=== PATIENT | male | born 1940 | race Caucasian/White ===

== ENCOUNTER 2017-12-18 12:21 | Outpatient (RCR) | payer MEDICARE | END 2018-01-06 | disposition home or self-care (01) | LOC: ONC 12:21 | PROVIDERS: ATTEND Radiology Radiation Oncology | DX: C61 Malignant neoplasm of prostate (principal) | CPT/HCPCS: 99204 ==

== ENCOUNTER 2018-03-29 09:45 | Outpatient (RCR) | payer MEDICARE | END 2018-04-15 | disposition home or self-care (01) | LOC: ONC 09:45 | PROVIDERS: ATTEND Radiology Radiation Oncology | DX: Z51.0 Encounter for antineoplastic radiation therapy (principal); C61 Malignant neoplasm of prostate | CPT/HCPCS: 77300; 77301; 77334; 77336; 77338; 77385; 77386 ==

== ENCOUNTER 2018-05-08 10:14 | Outpatient (RCR) | payer MEDICARE | END 2018-08-06 | disposition home or self-care (01) | LOC: ONC 10:14 | PROVIDERS: ATTEND Radiology Radiation Oncology | DX: C61 Malignant neoplasm of prostate (principal) | CPT/HCPCS: 36415; 84153 ==

== ENCOUNTER 2018-08-07 14:14 | Outpatient (RCR) | payer MEDICARE ==
[2018-09-03] MEDS ORDERED: LISI10TA2 PO (13:37)
[2018-09-03] MEDS ORDERED: NIAC1CAP PO (13:37)
[2018-09-03] MEDS ORDERED: ASPI-586 PO (13:37)
[2018-09-03] MEDS ORDERED: OMG1KC PO (13:37)
[2018-09-03] MEDS ORDERED: ALLO100T PO (13:37)
[2018-09-03] MEDS ORDERED: MULT-974 PO (13:37)
[2018-09-03] MEDS ORDERED: ACET-93 PO (13:37)
[2018-09-03] MEDS ORDERED: METO-370 PO (13:37)
[2018-09-03] MEDS ORDERED: VITA400C58 PO (13:37)
[2018-10-21] MEDS ORDERED: VITA100T6 PO (14:01)
[2018-10-21] MEDS ORDERED: FERR-84 PO (14:01)
[2018-10-21] MEDS ORDERED: NITR0.4T39 SL (14:01)
[2018-10-21] MEDS ORDERED: OMG1KC PO (14:01)
[2018-10-21] MEDS ORDERED: ASPI-586 PO (14:01)
[2018-10-21] MEDS ORDERED: IPRA4AER IH (14:01)
[2018-10-21] MEDS ORDERED: LISI-556 PO (14:02)
[2018-10-27] MEDS ORDERED: ACHD5005 PO (12:41)
== END 2018-11-05 | disposition home or self-care (01) ==
LOC: ONC 14:14
PROVIDERS: ATTEND Radiology Radiation Oncology
DX: C61 Malignant neoplasm of prostate (principal)
CPT/HCPCS: 99213

== ENCOUNTER 2018-09-03 06:25 | Outpatient (CLI) | payer MEDICARE ==
[~2018-09-03] VITALS: Ht 167.6 cm; Wt 120.2 kg
[2018-09-03] MEDS ORDERED: ASPI-586 PO (13:37)
[2018-09-03] MEDS ORDERED: ALLO100T PO (13:37)
[2018-09-03] MEDS ORDERED: MULT-974 PO (13:37)
[2018-09-03] MEDS ORDERED: OMG1KC PO (13:37)
[2018-09-03] MEDS ORDERED: ACET-93 PO (13:37)
[2018-09-03] MEDS ORDERED: LISI10TA2 PO (13:37)
[2018-09-03] MEDS ORDERED: VITA400C58 PO (13:37)
[2018-09-03] MEDS ORDERED: METO-370 PO (13:37)
[2018-09-03] MEDS ORDERED: NIAC1CAP PO (13:37)
== END 2018-09-03 13:45 | disposition home or self-care (01) ==
LOC: PREOP 06:25
PROVIDERS: ATTEND Surgery
DX: Z01.818 Encounter for other preprocedural examination (principal)

== ENCOUNTER 2018-09-09 09:47 | Day surgery (SDC) | payer MEDICARE ==
[~2018-09-09] VITALS: Ht 167.6 cm; Wt 120.2 kg
[~2018-09-09 09:47] MED LIST: ACET-93 PO; ALLO100T PO; ASPI-586 PO; LISI10TA2 PO; METO-370 PO; MULT-974 PO; NIAC1CAP PO; OMG1KC PO; VITA400C58 PO
[2018-09-09] MEDS ORDERED: LACTATED RINGERS 1,000 ML IV ONE (10:03)
[2018-09-09] MEDS ORDERED: LACTATED RINGERS 1,000 ML IV STA (10:32)
[2018-09-09 10:34] VITALS: BP 145/84
[2018-09-09] MEDS ORDERED: HURRICAINE EXT TUBE (BENZOCAINE) XX PRN (10:45)
[2018-09-09] MEDS ORDERED: HURRICAINE EXT TUBE (BENZOCAINE) ONE (10:46)
[2018-09-09] MEDS ORDERED: PROPOFOL INJECTION 50 ML IV ONE ×2 (11:20→12:16)
[2018-09-09] MEDS ORDERED: LIDOCAINE PF 2% 5 ML (XYLOCAINE) VIAL ONE (11:20)
[2018-09-09] MEDS ORDERED: MIDAZOLAM 2 MG/2 ML (VERSED) VIAL ONE (11:20)
--- NOTE | 2018-09-09 11:33 | Progress Note-Pre Operative ---
Pre-Operative Progress Note H&P Reviewed The H&P was reviewed, patient examined and no changes noted. Time Seen by Provider: 11:28 Date H&P Reviewed: Sep 09, 2018 Time H&P Reviewed: 11:29 Pre-Operative Diagnosis: Anemia LYUDMILA BRUSH DO Sep 09, 2018 11:33
--- NOTE | 2018-09-09 12:37 | Progress Note-Post Operative ---
Post-Operative Progess Note Surgeon (s)/Assembler Aircraft Power Plant (s) Surgeon LYUDMILA BRUSH DO Assembler Aircraft Power Plant: none Pre-Operative Diagnosis Anemia Post-Operative Diagnosis Same plus.. Duodenal ulcers Ascending colon mass Diverticula Internal hemorrhoids Procedure & Operative Findings Date of Procedure 09/09/18 Procedure Performed/Findings EGD with bx Colon with hot bx Colon with injection tattoo Anesthesia Type IV sedation by CROCHET BEADER Estimated Blood Loss Estimated blood loss (mL): scant Specimens/Packing Specimens Removed duodenal bx GE jxn bx Asc colon bx LYUDMILA BRUSH DO Sep 09, 2018 12:37
--- NOTE | 2018-09-09 12:39 | Endoscopy Discharge Instruct ---
Endo Procedure/Findings Findings 1.: Duodenal Ulcer 2.: Hiatal Hernia 3.: Polyp 4.: Diverticulosis, Internal Hemorrhoids Discharge Instructions - Activity: You might feel a little sleepy until tomorrow. This is due to the m edicine you received to relax you. Until tomorrow, you should: NOT drive a car, operate machinery or power tools. NOT drink any alcoholic beverages. NOT make any important decisions or sign importortant papers. Do not return to work until tomorrow, unless otherwise instructed. Resume previous activities tomorrow. Diet: Start by taking liquids. If you tolerate liquids, advance to solid food. make an appointment for one week Notify Physician - If you experience excessive bleeding, unusual abdominal pain, fever, or chest pain, contact your doctor immediately. Follow-Up: - I have received and understand the above instructions and will call my doctor if I have any further questions. Patient Signature Date Nurse Signature Other (Relationship) LYUDMILA BRUSH DO Sep 09, 2018 12:39
[2018-09-09 12:45] VITALS: BP 114/58
[2018-09-09 13:15] VITALS: BP 142/83
[2018-09-09 13:17] VITALS: BP 142/83
[2018-09-09 13:25] VITALS: BP 142/83
--- NOTE | 2018-09-09 14:37 | Anesthesia-General Post-Op ---
MAC Patient Condition Mental Status/LOC: Same as Preop Cardiovascular: Satisfactory Nausea/Vomiting: Absent Respiratory: Satisfactory Pain: Controlled Complications: Absent Post Op Complications Complications None Follow Up Care/Instructions Patient Instructions None needed. Anesthesiology Discharge Order Discharge Order Patient is doing well, no complaints, stable vital signs, no apparent adverse anesthesia problems. No complications reported per nursing. AARON MENESES CRNA Sep 09, 2018 14:37
--- NOTE | 2018-09-10 03:28 | OPERATIVE REPORT ---
DATE OF SERVICE: 09/09/2018 PREOPERATIVE DIAGNOSES: Anemia. POSTOPERATIVE DIAGNOSES: 1. Duodenal ulcer. 2. Hiatal hernia. 3. Esophagitis. 4. Ascending colon mass. 5. Diverticula. 6. Internal hemorrhoids. 7. He had AVMs in his colon. PROCEDURE: 1. EGD with biopsy. 2. Colonoscopy with hot biopsy. 3. Injection of dye for marking. SPECIMEN: Biopsy from the duodenum as well as a biopsy GE junction and then biopsy of ascending colon mass. INDICATION FOR PROCEDURE: The patient is a 78-year-old male who has anemia and needed a workup, EGD and colonoscopy. FINDINGS: The patient had a duodenal ulcer, hiatal hernia, esophagitis, ascending colon mass, diverticula, AVMs and internal hemorrhoids. PROCEDURE NOTE: After informed consent was obtained, the patient was brought to the endoscopy suite, placed in the bed in left lateral decubitus position. He was administered IV sedation by the BUSINESS INTELLIGENCE ANALYST who then monitored his vitals the entire time, heart rate, blood pressure and pulse ox and the scope was inserted first starting in the upper scope and pushed through the mouth, down the esophagus and into the stomach and then into the duodenum. In the duodenum, looked like he had some ulcers, took a picture of this and then a biopsy. that was in the first portion of duodenum. The second portion looked normal. Pulled back, antrum looked okay. Retroflexed the scope, looked like a small hiatal hernia and then pulled up into the GE junction, looked like he had may be some changes and took a biopsy here as well. Rest of the esophagus looked okay. Switched scopes, switched gloves, went down below to start the colonoscopy, pushed in, noted some diverticula, small and then large and some AVMs. He had multiple AVMs, then kept pushing pass and into the ascending colon saw unfortunately large ulcerating mass, did hot biopsies of this, could see the cecum just past this. I elected also to place some dye around it subcutaneously to [place] this area. At this point, then I pulled the scope back up the ascending colon to the hepatic flexure, then down the transverse colon, splenic flexure, into the descending colon following down the sigmoid and then in the rectum, retroflexed the rectal vault for some very minimal internal hemorrhoids. Scope was removed. The patient was recovered in the endoscopy suite. Job ID: [id number] DocumentID: [id number] Dictated Date: 09/09/2018 16:21:08 Mainframe Systems Administrator Date: 09/10/2018 03:26:57 Dictated By: LYUDMILA BRUSH DO
== END 2018-09-09 13:27 | disposition home or self-care (01) ==
LOC: ENDO 09:47
PROVIDERS: ATTEND Surgery
DX: C18.2 Malignant neoplasm of ascending colon (principal); K57.30 Diverticulosis of large intestine without perforation or abscess without bleeding; K55.20 Angiodysplasia of colon without hemorrhage; K29.80 Duodenitis without bleeding; K26.9 Duodenal ulcer, unspecified as acute or chronic, without hemorrhage or perforation; K29.50 Unspecified chronic gastritis without bleeding; K44.9 Diaphragmatic hernia without obstruction or gangrene; K20.9 Esophagitis, unspecified; K64.8 Other hemorrhoids; D64.9 Anemia, unspecified; I10 Essential (primary) hypertension; I25.10 Atherosclerotic heart disease of native coronary artery without angina pectoris; J44.9 Chronic obstructive pulmonary disease, unspecified; Z87.891 Personal history of nicotine dependence; Z95.1 Presence of aortocoronary bypass graft; Z95.5 Presence of coronary angioplasty implant and graft; Z79.82 Long term (current) use of aspirin; Z79.899 Other long term (current) drug therapy

== ENCOUNTER → 2018-09-19 | Outpatient (CLI) | payer MEDICARE ==
[2018-09-19 16:22] LABS: ABG BASE EXCESS 0.5 MMOL/L (-2.5-2.5); ABG OXYGEN SATURATION 95 % (94-100); ABG PCO2 38 MMHG (35-45); ABG PH 7.42 (7.37-7.43); ABG PO2 65 MMHG (79-93)
[2018-09-19 16:23] LABS: ALLENS TEST YES-POS; INSPIRED O2 RA; PATIENT TEMP 96.2; VENTILATOR NO
== END ==
LOC: PULM 15:10
PROVIDERS: ATTEND Nurse Practitioner Family
DX: J30.9 Allergic rhinitis, unspecified (principal); R05 Cough; R06.00 Dyspnea, unspecified; R06.89 Other abnormalities of breathing; R06.83 Snoring; G47.10 Hypersomnia, unspecified; C18.9 Malignant neoplasm of colon, unspecified
CPT/HCPCS: 36600; 82805

== ENCOUNTER → 2018-09-19 | Outpatient (CLI) | payer MEDICARE ==
[~2018-09-19] MED LIST changes: +CATHETER FLUSH 10 ML SYR IV PRN; +HOLD METFORMIN - RECEIVED CONTRAST 20 ML VIAL IV SCH; +IOHEXOL 350 MG/ML 100 ML (OMNIPAQUE 350) VIAL IV ONE; +NS 100 ML (IVPB) BAG IV ONE
[2018-09-19 12:21] LABS: BUN/CREATININE RATIO 13; CREATININE SERUM 1.16 MG/DL (0.60-1.30); GFR ESTIMATED > 60
--- NOTE | 2018-09-19 18:00 | Diagnostic Imaging Report ---
PROCEDURE: CT chest with contrast only. TECHNIQUE: Multiple contiguous axial images were obtained through the chest after administration of intravenous contrast. Auto Exposure Controls were utilized during the CT exam to meet ALARA standards for radiation dose reduction. INDICATION: COPD, colon carcinoma, prostate carcinoma. COMPARISON: There are no prior studies available for comparison. FINDINGS: The heart is borderline enlarged, and there are sternotomy wires and surgical clips evident. There are also coronary artery calcifications. The aorta is not abnormally dilated, and there is no sign of a dissection. The pulmonary arteries were not fully opacified, and consequently the evaluation for a pulmonary embolus is limited. There is no definite defect within the pulmonary arteries to indicate a pulmonary embolus. There are chronic pulmonary changes evident, but there is no sign of failure, pneumonia, or of a pleural effusion to indicate an acute abnormality. There is a small 5.4 mm nodule in the right lung base (image 32/69). There is a similar-sized nodule along the periphery of the left lower lobe (image 34/69). I suspect that these nodules are benign. Even so, unless there are previous studies available to demonstrate that these findings are stable, then a six-month follow-up CT chest exam would be recommended for further evaluation. There is no mediastinal or hilar adenopathy. The thyroid gland where visualized is unremarkable. The sections through the upper abdomen fail to show any sign of an acute abnormality. There does appear to be a 4.1 cm cyst in the superior pole of the right kidney. There are also small nonobstructive calculi within both kidneys. The bone windows show no evidence for a fracture or for a destructive lesion. IMPRESSION: 1. There is no evidence for an acute cardiopulmonary abnormality. The pulmonary arteries were not well opacified, and consequently the evaluation for a pulmonary embolus is limited. However, there is no definite defect to suggest a pulmonary embolus. 2. There is borderline cardiomegaly, evidence of prior cardiac surgery, and coronary artery disease. 3. There are chronic pulmonary changes. 4. The small nodules in each lung base are most likely benign. Recommendations as above. Dictated by: Dictated on workstation # [id number]
== END ==
LOC: RAD 11:47
PROVIDERS: ATTEND Nurse Practitioner Family
DX: C18.9 Malignant neoplasm of colon, unspecified (principal); C61 Malignant neoplasm of prostate; J44.0 Chronic obstructive pulmonary disease with (acute) lower respiratory infection; I51.7 Cardiomegaly; R91.8 Other nonspecific abnormal finding of lung field; N20.0 Calculus of kidney; I25.10 Atherosclerotic heart disease of native coronary artery without angina pectoris; Z87.891 Personal history of nicotine dependence; Z98.890 Other specified postprocedural states
CPT/HCPCS: 36415; 71260; 82565; 84520

== ENCOUNTER 2018-10-21 13:46 | Outpatient (CLI) | payer MEDICARE ==
[~2018-10-21] VITALS: Ht 167.6 cm; Wt 119.9 kg
[~2018-10-21 13:46] MED LIST changes: -CATHETER FLUSH 10 ML SYR IV PRN; -HOLD METFORMIN - RECEIVED CONTRAST 20 ML VIAL IV SCH; -IOHEXOL 350 MG/ML 100 ML (OMNIPAQUE 350) VIAL IV ONE; -NS 100 ML (IVPB) BAG IV ONE
[2018-10-21] MEDS ORDERED: OMG1KC PO (14:01)
[2018-10-21] MEDS ORDERED: FERR-84 PO (14:01)
[2018-10-21] MEDS ORDERED: IPRA4AER IH (14:01)
[2018-10-21] MEDS ORDERED: VITA100T6 PO (14:01)
[2018-10-21] MEDS ORDERED: ASPI-586 PO (14:01)
[2018-10-21] MEDS ORDERED: NITR0.4T39 SL (14:01)
[2018-10-21] MEDS ORDERED: LISI-556 PO (14:02)
[2018-10-21 15:00] LABS: BASOPHILS % (AUTO) 0 % (0-10); EOSINOPHILS # (AUTO) 0.2 10^3/uL (0.0-0.3); EOSINOPHILS % (AUTO) 4 % (0-10); HEMATOCRIT 35 % (40-54); HEMOGLOBIN 10.5 G/DL (13.3-17.7); LYMPHOCYTES # (AUTO) 0.7 X 10^3 (1.0-4.0); LYMPHOCYTES % (AUTO) 14 % (12-44); MEAN CORPUSCULAR HEMOGLOBIN 24 PG (25-34); MEAN CORPUSCULAR HGB CONC 30 G/DL (32-36); MEAN CORPUSCULAR VOLUME 82 FL (80-99); MEAN PLATELET VOLUME 9.5 FL (7.4-10.4); MONOCYTES # (AUTO) 0.6 X 10^3 (0.0-1.0); MONOCYTES % (AUTO) 13 % (0-12); NEUTROPHILS # (AUTO) 3.6 X 10^3 (1.8-7.8); NEUTROPHILS % (AUTO) 70 % (42-75); PLATELET COUNT 179 10^3/uL (130-400); RED CELL DISTRIBUTION WIDTH 21.1 % (10.0-14.5); WHITE BLOOD COUNT 5.1 10^3/uL (4.3-11.0)
[2018-10-21 15:15] LABS: CALCIUM 8.9 MG/DL (8.5-10.1); CREATININE SERUM 1.18 MG/DL (0.60-1.30); POTASSIUM 4.5 MMOL/L (3.6-5.0)
== END 2018-10-21 15:30 | disposition home or self-care (01) ==
LOC: PREOP 13:46
PROVIDERS: ATTEND Surgery
DX: Z01.812 Encounter for preprocedural laboratory examination (principal); C18.9 Malignant neoplasm of colon, unspecified
CPT/HCPCS: 36415; 80048; 85025; 86850; 86900; 86901; 87081

== ENCOUNTER 2018-10-23 08:55 | Inpatient (IN) | payer MEDICARE | END 2018-10-27 13:42 | disposition home or self-care (01) | LOC: 4TH 08:55 → SURG 08:56 → 4TH 14:25 | PROC: 0DTF0ZZ Resection of Right Large Intestine, Open Approach (ICD-10-PCS; principal; 2018-10-23 11:40) | DX: C18.2 Malignant neoplasm of ascending colon (principal); E66.01 Morbid (severe) obesity due to excess calories; Z68.41 Body mass index [BMI] 40.0-44.9, adult; G47.10 Hypersomnia, unspecified; Z87.891 Personal history of nicotine dependence ==

== ENCOUNTER 2018-11-25 05:50 | Outpatient (CLI) | payer MEDICARE ==
[~2018-11-25] VITALS: Ht 167.6 cm; Wt 119.9 kg
[~2018-11-25 05:50] MED LIST changes: +ACHD5005 PO; +FERR-84 PO; +IPRA4AER IH; +LISI-556 PO; +NITR0.4T39 SL; +VITA100T6 PO
== END 2018-11-25 15:15 | disposition home or self-care (01) ==
LOC: PREOP 05:50
PROVIDERS: ATTEND Surgery
DX: Z01.818 Encounter for other preprocedural examination (principal)

== ENCOUNTER 2018-11-27 08:13 | Day surgery (SDC) | payer MEDICARE ==
[2018-11-27] VITALS (7 sets, daily range): BP systolic 114–139; BP diastolic 64–80
[~2018-11-27] VITALS: Ht 167.6 cm; Wt 114.3 kg
[2018-11-27] MEDS ORDERED: LACTATED RINGERS 1,000 ML IV PRN (09:01)
[2018-11-27] MEDS ORDERED: HEParin (CENTRAL IV FLUSH) 500 UNIT/5 ML SYR ONE (09:50)
[2018-11-27] MEDS ORDERED: BUP/EPI 0.5% 1:200,000 (MARCAINE) 10ML VIAL IJ ONE (09:50)
[2018-11-27] MEDS ORDERED: 0.9% SODIUM CHLORIDE PF INJ 20 ML VIAL ONE (09:51)
[2018-11-27] MEDS ORDERED: LIDOCAINE 1% INJ 20 ML 20 ML VIAL ONE (09:51)
--- NOTE | 2018-11-27 10:05 | Progress Note-Pre Operative ---
Pre-Operative Progress Note H&P Reviewed The H&P was reviewed, patient examined and no changes noted. Time Seen by Provider: 09:04 Date H&P Reviewed: Nov 27, 2018 Time H&P Reviewed: 09:05 Pre-Operative Diagnosis: Colon CA, Venous Insufficiency LYUDMILA BRUSH DO Nov 27, 2018 10:05
[2018-11-27] MEDS ORDERED: MIDAZOLAM 2 MG/2 ML (VERSED) VIAL ONE (10:07)
[2018-11-27] MEDS ORDERED: PROPOFOL INJECTION 50 ML IV ONE (10:07)
[2018-11-27] MEDS ORDERED: fentaNYL INJECTION 100 MCG/2 ML AMP ONE (10:18)
[2018-11-27] MEDS ORDERED: ONDANSETRON 4 MG/2 ML (SDV) Z0FRAN ONE (10:47)
--- NOTE | 2018-11-27 11:05 | Progress Note-Post Operative ---
Post-Operative Progess Note Surgeon (s)/Truck Trailer Mechanic (s) Surgeon LYUDMILA BRUSH DO Truck Trailer Mechanic: NONE Pre-Operative Diagnosis Colon CA, Venous Insufficiency Post-Operative Diagnosis same Procedure & Operative Findings Date of Procedure 11/27/18 Procedure Performed/Findings Alyce cath insertion Anesthesia Type IV sedation by STEEL ANALYST Estimated Blood Loss Estimated blood loss (mL): scant Specimens/Packing Specimens Removed none LYUDMILA BRUSH DO Nov 27, 2018 11:05
--- NOTE | 2018-11-27 11:07 | Discharge Inst-Surgical ---
Discharge Inst-Surgical Reconcile Patient Problems Problems Reviewed?: Yes Depart Medication/Instructions New, Converted or Re-Newed RX: Other (none written ) Patient Instructions Follow up Appt: Make appointment for 1 week. [phone] Instructions: No strenuous activity. May shower in 24 hours, no tub bath or soaking. Use incentive spirometer at home as directed. No Smoking Skin/Wound Care: May remove bandages in am. You need to leave the Dermabond on incision it will fall off on it's own. Symptoms to Report: Appetite Changes, Extremity Discoloration, Numbness/Tingling, Swelling Increased, Bleeding Excessive, Eyesight Changes, Pain Increased, Urine Color Change, Constipation(Persistent), Fever over 101 degree F, Pain/Pressure in chest, Urinating Difficulty, Cough Up/Vomit Blood, Heart Beat Irreg/Pounding, Pain/Pressure in jaw, Cramps in feet or legs, Lightheadedness, Pain/Pressure in shoulder, Diarrhea(Persistent), Memory Changes Suddenly, Questions/Concerns, Weight gain consecutive days, Dizziness/Fainting, Nausea/Vomiting, Shortness of Breath, Weight gain over 2 pounds If questions or concerns contact your physician Or seek help at emergency department. Activity Activity as Tolerated: Yes Activity Instructions: Avoid Stress to Incision Driving Instructions: No Driving/Refer to Dr. Forbes Discharge Diet: No Restrictions Diet After 24 Hours: Clear Liquid if Nauseous If Any Problems/Questions/Issu: Contact Your Physician, Go to Emergency Room Skin/Wound Care Infection Signs and Symptoms: Increased Redness, Foul Odor of Wound, Increased Drainage, Skin Itchy or Has a Rash, Increased Swelling, Temperature Above 101 F Bathing Instructions: Shower Stitches/Tanner/Dermabond Dis: LYUDMILA Marinelli DO Nov 27, 2018 11:07
[2018-11-27] MEDS ORDERED: ONDANSETRON 4 MG/2 ML (SDV) Z0FRAN IVP PRN (11:15)
[2018-11-27] MEDS ORDERED: morphine INJ 10 MG/ML 1ML (SYR OR VIAL) IVP ONE (11:15)
[2018-11-27] MEDS ORDERED: MEPERIDINE (DEMEROL) INJ 50 MG/ML IVP ONE (11:15)
--- NOTE | 2018-11-27 13:32 | OPERATIVE REPORT ---
DATE OF SERVICE: 11/27/2018 PREOPERATIVE DIAGNOSES: 1. Colon cancer. 2. Venous insufficiency. POSTOPERATIVE DIAGNOSES: 1. Colon cancer. 2. Venous insufficiency. PROCEDURE: Port-A-Cath insertion. SURGEON: Ricardo Abrams DO. MANAGER OF SELECTION AND ASSESSMENT: None. ANESTHESIA: IV sedation by the FARM MACHINE OPERATOR. SPECIMEN: None. BLOOD LOSS: Scant. FLUIDS: Per anesthesia. POSTOPERATIVE CONDITION: Stable. INDICATION FOR PROCEDURE: The patient is a 78-year-old male who unfortunately has ascending colon cancer and venous insufficiency, needs a Port-A-Cath placed for long-term chemotherapy and IV access. FINDINGS: The patient had a Port-A-Cath placed right anterior chest wall, right subclavian vein. PROCEDURE NOTE: After informed consent was obtained, the patient was brought to the operating room, placed on the operating table in supine position, sterilely prepped and draped in normal fashion. Local lidocaine was used to infiltrate the skin in the right anterior chest wall towards the clavicle as well as an area to create the pocket for the port. An 18-gauge fine needle advanced with negative inspiration cannulated the subclavian vein on first attempt. Good flush of blood, removed the syringe, placed a guidewire down the needle using Seldinger technique. It went in easily, checked with fluoroscopy, it was in good position. I removed the needle, made a stab incision along the guidewire with #11 blade and then on the remainder chest wall made an incision with #11 blade, carried down through the skin into subcutaneous tissue, deepened down to subcutaneous tissue with Bovie electrocautery down to the fascia of the pectoralis major muscle and then created a pocket bluntly and then tunneled the catheter from the stab incision into the pocket and then over the guidewire placed a dilator using Seldinger technique. It went in easily, checked with fluoroscopy, it was in good position. I removed the inner portion of the dilator and the guidewire and then placed the catheter down the dilator sheath. Checked with fluoroscopy, it was in good position. I removed the dilator sheath. I then attached the catheter to the port with the locking mechanism and then cannulated the port with a Harman needle, good flash of blood and then flushed easily with saline and aspirated and got a good flash of blood and then flushed with 2 mL of heparin flush. The port was then placed in the pocket, sutured in place with 3-0 Prolene. I then elected to close this incision closing the subcutaneous tissue with 3-0 Vicryl two interrupted sutures and closed the skin with 4-0 undyed Monocryl 3 interrupted subcuticular stitches. Area was cleaned and dried. Dermabond placed as well as a Band-Aid. The patient then transferred to recovery room in stable condition. Sponge, instrument and needle count were correct at the end of the case. Job ID: [id number] DocumentID: [id number] Dictated Date: 11/27/2018 11:03:30 Environmental Geologist Date: 11/27/2018 13:30:20 Dictated By: RICARDO ABRAMS DO
--- NOTE | 2018-11-27 14:42 | Anesthesia-General Post-Op ---
MAC Patient Condition Mental Status/LOC: Same as Preop Cardiovascular: Satisfactory Nausea/Vomiting: Absent Respiratory: Satisfactory Pain: Controlled Complications: Absent Post Op Complications Complications None Follow Up Care/Instructions Patient Instructions None needed. Anesthesiology Discharge Order Discharge Order Patient is doing well, no complaints, stable vital signs, no apparent adverse anesthesia problems. No complications reported per nursing. PAUL WALKER CRNA Nov 27, 2018 14:42
--- NOTE | 2018-11-27 14:50 | Diagnostic Imaging Report ---
INDICATION: Fluoroscopy for PowerPort insertion. TECHNIQUE/FINDINGS: Fluoroscopy was provided in the OR during PowerPort insertion. 6 seconds of fluoroscopy was utilized. An image demonstrates a right chest wall port with the tip overlying the SVC. IMPRESSION: Fluoroscopy for PowerPort insertion. Dictated by: Dictated on workstation # [id number]
== END 2018-11-27 12:45 | disposition home or self-care (01) ==
LOC: SDC 08:13
PROVIDERS: ATTEND Surgery
DX: C18.9 Malignant neoplasm of colon, unspecified (principal); I87.2 Venous insufficiency (chronic) (peripheral); D50.9 Iron deficiency anemia, unspecified; K29.50 Unspecified chronic gastritis without bleeding; G47.10 Hypersomnia, unspecified; I10 Essential (primary) hypertension; E78.00 Pure hypercholesterolemia, unspecified; J44.9 Chronic obstructive pulmonary disease, unspecified; F17.210 Nicotine dependence, cigarettes, uncomplicated; I25.10 Atherosclerotic heart disease of native coronary artery without angina pectoris; G47.33 Obstructive sleep apnea (adult) (pediatric); M19.90 Unspecified osteoarthritis, unspecified site; E66.01 Morbid (severe) obesity due to excess calories; Z68.41 Body mass index [BMI] 40.0-44.9, adult; Z79.82 Long term (current) use of aspirin; Z79.899 Other long term (current) drug therapy; Z88.1 Allergy status to other antibiotic agents; Z88.8 Allergy status to other drugs, medicaments and biological substances; Z80.8 Family history of malignant neoplasm of other organs or systems; Z80.1 Family history of malignant neoplasm of trachea, bronchus and lung; Z95.5 Presence of coronary angioplasty implant and graft; Z95.1 Presence of aortocoronary bypass graft
CPT/HCPCS: 87081

== ENCOUNTER → 2018-12-03 | Outpatient (CLI) | payer MEDICARE ==
--- NOTE | 2018-12-05 15:37 | Diagnostic Imaging Report ---
EXAM: PET/CT INDICATION: Colorectal carcinoma initial EXAMINATION: After intravenous administration of 13.71 mCi of F18-FDG, a series of overlapping emission and transmission PET images was obtained. In the coronal, transaxial and sagittal planes, the area imaged extended from the skull base through the upper thighs. PET images were obtained one hour following injection. Height: 5 feet, 6 inches. Weight: 249 pounds. There are no prior PET/CT examinations available for comparison. CT chest exam performed on 09/19/2018 noted 5.4 MM nodule in the right lung base and a 4.8 MM nodule in the left lower lobe. Those findings are again evident on the CT images and do not appear to have changed significantly. Those nodules are not hypermetabolic either. However, it does appear that the patient has had a right hemicolectomy. In the region of the anastomosis of the small bowel and the colon there is a 1.5 x 2.9 CM hypermetabolic focus. This has a maximum SUV measuring 7.2 and this finding is worrisome for neoplasm.. Furthermore, within the mesentery along the medial aspect of the anastomosis there is also a 3.6 x 3.7 CM hypermetabolic mass. The maximum SUV of this lesion is 12.1 and this mass should be considered neoplastic until proven otherwise. There is also some distortion of the mesenteric fat in this area indicating edema/inflammation. There is no other hypermetabolic mass evident to suggest malignancy. There is increased hypermetabolic activity throughout the transverse distal descending and sigmoid colon. This may well physiologic in nature. There is no other metabolic activity to suggest the presence of neoplasm. There is no acute abnormality identified on the CT images. There are small nonobstructive calculi associated with both kidneys. IMPRESSION: 1. There is increased hypermetabolic activity in the region of the anastomosis of the right hemicolectomy. This finding is worrisome for malignancy. Furthermore, in this same area, there is a 3.6 x 3.7 CM hypermetabolic mass. This finding should be considered neoplastic until proven otherwise. 2. There is no other hypermetabolic activity to suggest the presence of neoplasm. 3. There is no acute abnormality identified. Dictated by: Dictated on workstation # [id number]
== END ==
LOC: RAD 09:05
PROVIDERS: ATTEND Internal Medicine Hematology & Oncology
DX: C18.2 Malignant neoplasm of ascending colon (principal); Z90.49 Acquired absence of other specified parts of digestive tract

== ENCOUNTER → 2018-12-19 | Outpatient (CLI) | payer MEDICARE ==
--- NOTE | 2018-12-19 15:28 | Diagnostic Imaging Report ---
PROCEDURE: CT abdomen and pelvis with and without contrast. TECHNIQUE: Precontrast acquisitions were acquired through the abdomen and pelvis. Multiple contiguous axial images were obtained through the abdomen and pelvis after the administration of intravenous contrast. Auto Exposure Controls were utilized during the CT exam to meet ALARA standards for radiation dose reduction. INDICATION: Malignant neoplasm of the ascending colon. Patient had recent abnormal PET/CT study demonstrating areas of abnormal FDG uptake in the right abdomen. This study is performed for further evaluation. Correlation is made with recent PET/CT study from 12/03/2018. FINDINGS: Lung bases again demonstrate pulmonary micronodules, similar to prior exam. No discrete liver mass is identified. Gallbladder is unremarkable. There is no biliary ductal dilatation. The pancreas and spleen are unremarkable. No adrenal mass is seen. Cyst in the upper pole of the right kidney measures 4.1 cm. There are numerous nonobstructing calculi within both kidneys. No hydronephrosis is seen. Aorta is calcified but nonaneurysmal. Postsurgical changes of right hemicolectomy are noted. At the anastomosis of small bowel with the right colon, no mass is detected to account for the uptake noted on PET study. Activity may have been physiologic. However, medial to this, second site of intense uptake was noted on PET/CT. This appears to represent the junction of the second portion with the third portion of the duodenum. There is some wall thickening at this location and questionable soft tissue mass. No other concerning findings are seen. There is no ascites. There is no lymphadenopathy identified. IMPRESSION: Persistent abnormal thickening and questionable mass in the right paramidline central abdomen which appears to be at the location of the proximal small bowel, junction of second and third portions of duodenum. Endoscopy would be useful for further evaluation. If this is not performed, consideration could be given to performance of an upper GI. Due to location, this area would not be amenable to percutaneous biopsy. Dictated by: Dictated on workstation # [id number]
== END ==
LOC: RAD 13:15
PROVIDERS: ATTEND Nurse Practitioner Adult Health
DX: C18.2 Malignant neoplasm of ascending colon (principal)
CPT/HCPCS: 74178

== ENCOUNTER 2019-02-12 12:36 | Outpatient (RCR) | payer MEDICARE ==
[2018-11-20 14:51] LABS: BASOPHILS % (AUTO) 0 % (0-10); EOSINOPHILS # (AUTO) 0.1 10^3/uL (0.0-0.3); EOSINOPHILS % (AUTO) 3 % (0-10); HEMATOCRIT 32 % (40-54); HEMOGLOBIN 9.5 G/DL (13.3-17.7); LYMPHOCYTES # (AUTO) 0.7 X 10^3 (1.0-4.0); LYMPHOCYTES % (AUTO) 13 % (12-44); MEAN CORPUSCULAR HEMOGLOBIN 24 PG (25-34); MEAN CORPUSCULAR HGB CONC 30 G/DL (32-36); MEAN CORPUSCULAR VOLUME 82 FL (80-99); MEAN PLATELET VOLUME 8.9 FL (7.4-10.4); MONOCYTES # (AUTO) 0.6 X 10^3 (0.0-1.0); MONOCYTES % (AUTO) 11 % (0-12); NEUTROPHILS # (AUTO) 4.1 X 10^3 (1.8-7.8); NEUTROPHILS % (AUTO) 74 % (42-75); PLATELET COUNT 233 10^3/uL (130-400); RED CELL DISTRIBUTION WIDTH 18.2 % (10.0-14.5); WHITE BLOOD COUNT 5.6 10^3/uL (4.3-11.0)
[2018-11-20 15:10] LABS: ALANINE AMINOTRANSFERASE 16 U/L (0-55); ALBUMIN 3.7 GM/DL (3.2-4.5); ALKALINE PHOSPHATASE 69 U/L (40-136); BILIRUBIN,TOTAL 0.3 MG/DL (0.1-1.0); BUN/CREATININE RATIO 18; CALCIUM 8.5 MG/DL (8.5-10.1); CARBON DIOXIDE 25 MMOL/L (21-32); CHLORIDE 107 MMOL/L (98-107); GFR ESTIMATED > 60; GLUCOSE 97 MG/DL (70-105); POTASSIUM 4.3 MMOL/L (3.6-5.0); SODIUM 140 MMOL/L (135-145); TOTAL PROTEIN 6.9 GM/DL (6.4-8.2)
[2018-12-11 12:11] LABS: BASOPHILS % (AUTO) 0 % (0-10); EOSINOPHILS # (AUTO) 0.1 10^3/uL (0.0-0.3); EOSINOPHILS % (AUTO) 3 % (0-10); HEMATOCRIT 34 % (40-54); HEMOGLOBIN 9.9 G/DL (13.3-17.7); LYMPHOCYTES # (AUTO) 0.7 X 10^3 (1.0-4.0); LYMPHOCYTES % (AUTO) 14 % (12-44); MEAN CORPUSCULAR HEMOGLOBIN 24 PG (25-34); MEAN CORPUSCULAR HGB CONC 29 G/DL (32-36); MEAN CORPUSCULAR VOLUME 83 FL (80-99); MEAN PLATELET VOLUME 8.7 FL (7.4-10.4); MONOCYTES # (AUTO) 0.7 X 10^3 (0.0-1.0); MONOCYTES % (AUTO) 14 % (0-12); NEUTROPHILS # (AUTO) 3.3 X 10^3 (1.8-7.8); NEUTROPHILS % (AUTO) 69 % (42-75); PLATELET COUNT 185 10^3/uL (130-400); RED CELL DISTRIBUTION WIDTH 18.6 % (10.0-14.5); WHITE BLOOD COUNT 4.8 10^3/uL (4.3-11.0)
[2018-12-11 12:34] LABS: ALANINE AMINOTRANSFERASE 16 U/L (0-55); ALBUMIN 3.6 GM/DL (3.2-4.5); ALKALINE PHOSPHATASE 80 U/L (40-136); BILIRUBIN,TOTAL 0.3 MG/DL (0.1-1.0); BUN/CREATININE RATIO 16; CALCIUM 8.4 MG/DL (8.5-10.1); CARBON DIOXIDE 29 MMOL/L (21-32); CHLORIDE 108 MMOL/L (98-107); CREATININE SERUM 1.13 MG/DL (0.60-1.30); GFR ESTIMATED > 60; GLUCOSE 85 MG/DL (70-105); POTASSIUM 4.3 MMOL/L (3.6-5.0); SODIUM 140 MMOL/L (135-145); TOTAL PROTEIN 6.8 GM/DL (6.4-8.2)
[2018-12-19 09:35] LABS: BASOPHILS % (AUTO) 0 % (0-10); EOSINOPHILS # (AUTO) 0.1 10^3/uL (0.0-0.3); EOSINOPHILS % (AUTO) 2 % (0-10); HEMATOCRIT 34 % (40-54); HEMOGLOBIN 10.1 G/DL (13.3-17.7); LYMPHOCYTES # (AUTO) 0.5 X 10^3 (1.0-4.0); LYMPHOCYTES % (AUTO) 9 % (12-44); MEAN CORPUSCULAR HEMOGLOBIN 25 PG (25-34); MEAN CORPUSCULAR HGB CONC 30 G/DL (32-36); MEAN CORPUSCULAR VOLUME 84 FL (80-99); MEAN PLATELET VOLUME 8.7 FL (7.4-10.4); MONOCYTES # (AUTO) 0.5 X 10^3 (0.0-1.0); MONOCYTES % (AUTO) 9 % (0-12); NEUTROPHILS # (AUTO) 4.6 X 10^3 (1.8-7.8); NEUTROPHILS % (AUTO) 80 % (42-75); PLATELET COUNT 186 10^3/uL (130-400); RED CELL DISTRIBUTION WIDTH 18.7 % (10.0-14.5); WHITE BLOOD COUNT 5.7 10^3/uL (4.3-11.0)
[2018-12-19 09:46] LABS: BUN/CREATININE RATIO 15; CALCIUM 8.4 MG/DL (8.5-10.1); CARBON DIOXIDE 23 MMOL/L (21-32); CHLORIDE 103 MMOL/L (98-107); CREATININE SERUM 1.15 MG/DL (0.60-1.30); GFR ESTIMATED > 60; GLUCOSE 116 MG/DL (70-105); POTASSIUM 4.5 MMOL/L (3.6-5.0); SODIUM 136 MMOL/L (135-145)
[2019-01-01 10:12] LABS: BASOPHILS % (AUTO) 0 % (0-10); EOSINOPHILS # (AUTO) 0.1 10^3/uL (0.0-0.3); EOSINOPHILS % (AUTO) 3 % (0-10); HEMATOCRIT 33 % (40-54); HEMOGLOBIN 9.9 G/DL (13.3-17.7); LYMPHOCYTES # (AUTO) 0.6 X 10^3 (1.0-4.0); LYMPHOCYTES % (AUTO) 15 % (12-44); MEAN CORPUSCULAR HEMOGLOBIN 26 PG (25-34); MEAN CORPUSCULAR HGB CONC 31 G/DL (32-36); MEAN CORPUSCULAR VOLUME 86 FL (80-99); MEAN PLATELET VOLUME 8.4 FL (7.4-10.4); MONOCYTES # (AUTO) 0.5 X 10^3 (0.0-1.0); MONOCYTES % (AUTO) 14 % (0-12); NEUTROPHILS # (AUTO) 2.5 X 10^3 (1.8-7.8); NEUTROPHILS % (AUTO) 68 % (42-75); PLATELET COUNT 125 10^3/uL (130-400); RED CELL DISTRIBUTION WIDTH 21.4 % (10.0-14.5); WHITE BLOOD COUNT 3.7 10^3/uL (4.3-11.0)
[2019-01-01 10:38] LABS: ALANINE AMINOTRANSFERASE 17 U/L (0-55); ALBUMIN 3.6 GM/DL (3.2-4.5); ALKALINE PHOSPHATASE 72 U/L (40-136); BILIRUBIN,TOTAL 0.4 MG/DL (0.1-1.0); BUN/CREATININE RATIO 17; CALCIUM 8.3 MG/DL (8.5-10.1); CARBON DIOXIDE 24 MMOL/L (21-32); CHLORIDE 110 MMOL/L (98-107); CREATININE SERUM 1.02 MG/DL (0.60-1.30); GFR ESTIMATED > 60; GLUCOSE 122 MG/DL (70-105); POTASSIUM 4.2 MMOL/L (3.6-5.0); SODIUM 141 MMOL/L (135-145); TOTAL PROTEIN 6.4 GM/DL (6.4-8.2)
[2019-01-22 10:05] LABS: BASOPHILS % (AUTO) 0 % (0-10); EOSINOPHILS # (AUTO) 0.1 10^3/uL (0.0-0.3); EOSINOPHILS % (AUTO) 2 % (0-10); HEMATOCRIT 31 % (40-54); HEMOGLOBIN 9.5 G/DL (13.3-17.7); LYMPHOCYTES # (AUTO) 0.5 X 10^3 (1.0-4.0); LYMPHOCYTES % (AUTO) 12 % (12-44); MEAN CORPUSCULAR HEMOGLOBIN 27 PG (25-34); MEAN CORPUSCULAR HGB CONC 30 G/DL (32-36); MEAN CORPUSCULAR VOLUME 90 FL (80-99); MEAN PLATELET VOLUME 8.7 FL (7.4-10.4); MONOCYTES # (AUTO) 0.7 X 10^3 (0.0-1.0); MONOCYTES % (AUTO) 16 % (0-12); NEUTROPHILS # (AUTO) 3.1 X 10^3 (1.8-7.8); NEUTROPHILS % (AUTO) 70 % (42-75); PLATELET COUNT 133 10^3/uL (130-400); RED CELL DISTRIBUTION WIDTH 25.8 % (10.0-14.5); WHITE BLOOD COUNT 4.4 10^3/uL (4.3-11.0)
[2019-01-22 10:31] LABS: ALBUMIN 3.5 GM/DL (3.2-4.5); BILIRUBIN,TOTAL 0.5 MG/DL (0.1-1.0); CALCIUM 8.1 MG/DL (8.5-10.1); CREATININE SERUM 1.21 MG/DL (0.60-1.30); MAGNESIUM 1.8 MG/DL (1.6-2.4); POTASSIUM 4.4 MMOL/L (3.6-5.0); TOTAL PROTEIN 5.9 GM/DL (6.4-8.2)
[~2019-02-12] VITALS: Ht 167.6 cm; Wt 112.9 kg
[~2019-02-12 12:36] MED LIST changes: +D5W 500 ML IV (CANCER CTR) 500 ML IV SCH; +FOSAPREPITANT DIMEGLUMINE 150 MG in NS (IVPB) CANCER CENTER ONLY 150 ML IV SCH; +OXALIPLATIN 160 MG in D5W 250 ML IVPB (CANCER CTR) 250 ML IV SCH; +OXALIPLATIN 170 MG in D5W 250 ML IVPB (CANCER CTR) 250 ML IV SCH; +PALONOSETRON HCL 0.25 MG, DEXAMETHASONE INJECTION 10 MG in NS (IVPB) CANCER CENTER 50 ML IV SCH
[2019-02-12 13:22] LABS: BASOPHILS % (AUTO) 0 % (0-10); EOSINOPHILS # (AUTO) 0.1 10^3/uL (0.0-0.3); EOSINOPHILS % (AUTO) 3 % (0-10); HEMATOCRIT 31 % (40-54); HEMOGLOBIN 9.8 G/DL (13.3-17.7); LYMPHOCYTES # (AUTO) 0.6 X 10^3 (1.0-4.0); LYMPHOCYTES % (AUTO) 12 % (12-44); MEAN CORPUSCULAR HEMOGLOBIN 30 PG (25-34); MEAN CORPUSCULAR HGB CONC 32 G/DL (32-36); MEAN CORPUSCULAR VOLUME 93 FL (80-99); MEAN PLATELET VOLUME 8.4 FL (7.4-10.4); MONOCYTES # (AUTO) 0.7 X 10^3 (0.0-1.0); MONOCYTES % (AUTO) 14 % (0-12); NEUTROPHILS # (AUTO) 3.6 X 10^3 (1.8-7.8); NEUTROPHILS % (AUTO) 71 % (42-75); PLATELET COUNT 120 10^3/uL (130-400); RED CELL DISTRIBUTION WIDTH 28.4 % (10.0-14.5)
[2019-02-12 13:42] LABS: ALANINE AMINOTRANSFERASE 16 U/L (0-55); ALBUMIN 3.5 GM/DL (3.2-4.5); ALKALINE PHOSPHATASE 69 U/L (40-136); BILIRUBIN,TOTAL 0.5 MG/DL (0.1-1.0); BUN/CREATININE RATIO 13; CALCIUM 8.3 MG/DL (8.5-10.1); CARBON DIOXIDE 25 MMOL/L (21-32); CHLORIDE 107 MMOL/L (98-107); CREATININE SERUM 1.04 MG/DL (0.60-1.30); GFR ESTIMATED > 60; GLUCOSE 107 MG/DL (70-105); POTASSIUM 4.2 MMOL/L (3.6-5.0); SODIUM 140 MMOL/L (135-145)
== END 2019-02-18 | disposition home or self-care (01) ==
LOC: ONC 12:36
PROVIDERS: ATTEND Internal Medicine Hematology & Oncology
DX: C18.2 Malignant neoplasm of ascending colon (principal); C77.2 Secondary and unspecified malignant neoplasm of intra-abdominal lymph nodes; E66.01 Morbid (severe) obesity due to excess calories; Z68.41 Body mass index [BMI] 40.0-44.9, adult; G47.10 Hypersomnia, unspecified; Z87.891 Personal history of nicotine dependence; C61 Malignant neoplasm of prostate
CPT/HCPCS: 36415; 36591; 80048; 80053; 82378; 82728; 82784; 83540; 83550; 83735; 85025; 96367; 96375; 96413; 99213; 99214

== ENCOUNTER → 2019-02-26 | Outpatient (CLI) | payer MEDICARE ==
[~2019-02-26] MED LIST changes: -D5W 500 ML IV (CANCER CTR) 500 ML IV SCH; -FOSAPREPITANT DIMEGLUMINE 150 MG in NS (IVPB) CANCER CENTER ONLY 150 ML IV SCH; -OXALIPLATIN 160 MG in D5W 250 ML IVPB (CANCER CTR) 250 ML IV SCH; -OXALIPLATIN 170 MG in D5W 250 ML IVPB (CANCER CTR) 250 ML IV SCH; -PALONOSETRON HCL 0.25 MG, DEXAMETHASONE INJECTION 10 MG in NS (IVPB) CANCER CENTER 50 ML IV SCH
== END ==
LOC: LAB 08:00
PROVIDERS: ATTEND Internal Medicine Hematology & Oncology
DX: C18.2 Malignant neoplasm of ascending colon (principal)

== ENCOUNTER → 2019-03-03 | Outpatient (CLI) | payer MEDICARE ==
[2019-02-26 10:06] LABS: HEMATOCRIT 32 % (40-54); HEMOGLOBIN 10.1 G/DL (13.3-17.7); MEAN CORPUSCULAR HEMOGLOBIN 30 PG (25-34); MEAN CORPUSCULAR HGB CONC 32 G/DL (32-36); MEAN CORPUSCULAR VOLUME 96 FL (80-99); MEAN PLATELET VOLUME 8.4 FL (7.4-10.4); PLATELET COUNT 167 10^3/uL (130-400); RED CELL DISTRIBUTION WIDTH 29.7 % (10.0-14.5); WHITE BLOOD COUNT 6.8 10^3/uL (4.3-11.0)
[2019-02-26 10:07] LABS: BASOPHILS % (AUTO) 1 % (0-10); EOSINOPHILS # (AUTO) 0.1 10^3/uL (0.0-0.3); EOSINOPHILS % (AUTO) 2 % (0-10); LYMPHOCYTES # (AUTO) 0.5 X 10^3 (1.0-4.0); LYMPHOCYTES % (AUTO) 7 % (12-44); MONOCYTES # (AUTO) 0.7 X 10^3 (0.0-1.0); MONOCYTES % (AUTO) 10 % (0-12); NEUTROPHILS # (AUTO) 5.4 X 10^3 (1.8-7.8); NEUTROPHILS % (AUTO) 80 % (42-75)
[2019-02-26 10:16] LABS: ALANINE AMINOTRANSFERASE 16 U/L (0-55); ALBUMIN 3.6 GM/DL (3.2-4.5); ALKALINE PHOSPHATASE 78 U/L (40-136); BILIRUBIN,TOTAL 0.5 MG/DL (0.1-1.0); BUN/CREATININE RATIO 15; CALCIUM 8.9 MG/DL (8.5-10.1); CARBON DIOXIDE 27 MMOL/L (21-32); CHLORIDE 102 MMOL/L (98-107); CREATININE SERUM 1.14 MG/DL (0.60-1.30); GFR ESTIMATED > 60; GLUCOSE 144 MG/DL (70-105); POTASSIUM 4.5 MMOL/L (3.6-5.0); SODIUM 139 MMOL/L (135-145); TOTAL PROTEIN 6.6 GM/DL (6.4-8.2)
[~2019-03-03] MED LIST changes: +BARIUM SUSPENSION 2.1% (VANILLA SILQ) 450 ML PO ONE; +HOLD METFORMIN - RECEIVED CONTRAST 20 ML VIAL IV SCH; +IOHEXOL 350 MG/ML 100 ML (OMNIPAQUE 350) VIAL IV ONE; +NS 100 ML (IVPB) BAG IV ONE
--- NOTE | 2019-03-03 10:05 | Diagnostic Imaging Report ---
PROCEDURE: CT abdomen and pelvis with and without contrast. TECHNIQUE: Precontrast acquisitions were acquired through the abdomen and pelvis. Multiple contiguous axial images were obtained through the abdomen and pelvis after the administration of intravenous contrast. Auto Exposure Controls were utilized during the CT exam to meet ALARA standards for radiation dose reduction. INDICATION: Malignant neoplasm of the ascending colon. FINDINGS: The PET/CT exam performed on 12/03/2018 noted hypermetabolic activity in the region of the anastomosis or right hemicolectomy. There is also a 3.6 x 3.7 cm hypermetabolic mass in this same area. The subsequent PET/CT exam of 12/19/2018 noted a persistent area of abnormal thickening and questionable mass in the right para-midline central abdomen. This was near the junction of second and third portions of the duodenum. On this exam, that area of abnormal thickening is again evident, although it has diminished in size. This finding is difficult to measure accurately as the bowel in this series not completely opacified. I do feel it has definitely decreased in size since the prior exam, however. The overall appearance of the abdomen and pelvis has not changed significantly, otherwise. The liver remains homogeneous and there is no defect within the liver to indicate metastatic disease. The spleen, pancreas, adrenals, gallbladder, kidneys, aorta and inferior vena cava are unremarkable for an acute abnormality. The stomach is filled with oral contrast and difficult to assess. There is no pelvic mass or free fluid collection noted. As on the prior exam, numerous surgical clips are again seen about the prostate gland. The urinary bladder is only partially distended and consequently difficult to assess. There is no pelvic mass or free fluid collection evident. The bone windows show no evidence for fracture or for destructive lesion. The lung bases are generally clear. IMPRESSION: 1. The abnormal thickening about the bowel near the junction of the second and third portions of the duodenum seen on previous study has diminished. 2. There is no other abnormality identified to suggest neoplastic disease. 3. There is no sign of an acute bony abnormality. Dictated by: Dictated on workstation # [id number]
== END ==
LOC: RAD 07:55
PROVIDERS: ATTEND Nurse Practitioner Adult Health
DX: C18.2 Malignant neoplasm of ascending colon (principal)
CPT/HCPCS: 36415; 74178; 80053; 85025

== ENCOUNTER 2019-03-19 12:55 | Outpatient (RCR) | payer MEDICARE ==
[2018-12-25 11:54] LABS: BASOPHILS % (AUTO) 0 % (0-10); EOSINOPHILS # (AUTO) 0.1 10^3/uL (0.0-0.3); EOSINOPHILS % (AUTO) 2 % (0-10); HEMATOCRIT 32 % (40-54); HEMOGLOBIN 9.6 G/DL (13.3-17.7); LYMPHOCYTES # (AUTO) 0.7 X 10^3 (1.0-4.0); LYMPHOCYTES % (AUTO) 12 % (12-44); MEAN CORPUSCULAR HEMOGLOBIN 26 PG (25-34); MEAN CORPUSCULAR HGB CONC 30 G/DL (32-36); MEAN CORPUSCULAR VOLUME 85 FL (80-99); MEAN PLATELET VOLUME 8.6 FL (7.4-10.4); MONOCYTES # (AUTO) 0.7 X 10^3 (0.0-1.0); MONOCYTES % (AUTO) 12 % (0-12); NEUTROPHILS # (AUTO) 4.1 X 10^3 (1.8-7.8); NEUTROPHILS % (AUTO) 74 % (42-75); PLATELET COUNT 163 10^3/uL (130-400); RED CELL DISTRIBUTION WIDTH 19.9 % (10.0-14.5); WHITE BLOOD COUNT 5.6 10^3/uL (4.3-11.0)
[2018-12-25 12:18] LABS: CARBON DIOXIDE 24 MMOL/L (21-32); CHLORIDE 103 MMOL/L (98-107); POTASSIUM 4.3 MMOL/L (3.6-5.0); SODIUM 140 MMOL/L (135-145)
[2018-12-25 12:19] LABS: BUN/CREATININE RATIO 15; CALCIUM 8.5 MG/DL (8.5-10.1); CREATININE SERUM 1.12 MG/DL (0.60-1.30); GFR ESTIMATED > 60; GLUCOSE 104 MG/DL (70-105)
[2019-01-08 11:45] LABS: BASOPHILS % (AUTO) 0 % (0-10); EOSINOPHILS # (AUTO) 0.1 10^3/uL (0.0-0.3); EOSINOPHILS % (AUTO) 3 % (0-10); HEMATOCRIT 32 % (40-54); HEMOGLOBIN 9.7 G/DL (13.3-17.7); LYMPHOCYTES # (AUTO) 0.6 X 10^3 (1.0-4.0); LYMPHOCYTES % (AUTO) 13 % (12-44); MEAN CORPUSCULAR HEMOGLOBIN 26 PG (25-34); MEAN CORPUSCULAR HGB CONC 30 G/DL (32-36); MEAN CORPUSCULAR VOLUME 88 FL (80-99); MEAN PLATELET VOLUME 9.5 FL (7.4-10.4); MONOCYTES # (AUTO) 0.5 X 10^3 (0.0-1.0); MONOCYTES % (AUTO) 12 % (0-12); NEUTROPHILS # (AUTO) 3.1 X 10^3 (1.8-7.8); NEUTROPHILS % (AUTO) 71 % (42-75); PLATELET COUNT 146 10^3/uL (130-400); RED CELL DISTRIBUTION WIDTH 21.2 % (10.0-14.5); WHITE BLOOD COUNT 4.4 10^3/uL (4.3-11.0)
[2019-01-08 12:08] LABS: CALCIUM 8.4 MG/DL (8.5-10.1); CREATININE SERUM 1.19 MG/DL (0.60-1.30); POTASSIUM 4.8 MMOL/L (3.6-5.0)
[2019-01-15 12:35] LABS: HEMATOCRIT 33 % (40-54); MEAN CORPUSCULAR HEMOGLOBIN 28 PG (25-34); MEAN CORPUSCULAR VOLUME 90 FL (80-99); WHITE BLOOD COUNT 5.4 10^3/uL (4.3-11.0)
[2019-01-15 12:36] LABS: BASOPHILS % (AUTO) 0 % (0-10); EOSINOPHILS # (AUTO) 0.1 10^3/uL (0.0-0.3); EOSINOPHILS % (AUTO) 2 % (0-10); LYMPHOCYTES # (AUTO) 0.6 X 10^3 (1.0-4.0); LYMPHOCYTES % (AUTO) 11 % (12-44); MEAN CORPUSCULAR HGB CONC 31 G/DL (32-36); MEAN PLATELET VOLUME 8.6 FL (7.4-10.4); MONOCYTES # (AUTO) 0.6 X 10^3 (0.0-1.0); MONOCYTES % (AUTO) 11 % (0-12); NEUTROPHILS # (AUTO) 4.1 X 10^3 (1.8-7.8); NEUTROPHILS % (AUTO) 76 % (42-75); PLATELET COUNT 156 10^3/uL (130-400)
[2019-01-15 12:57] LABS: BUN/CREATININE RATIO 16; CALCIUM 8.6 MG/DL (8.5-10.1); CARBON DIOXIDE 25 MMOL/L (21-32); CHLORIDE 106 MMOL/L (98-107); CREATININE SERUM 1.07 MG/DL (0.60-1.30); GFR ESTIMATED > 60; GLUCOSE 111 MG/DL (70-105); POTASSIUM 4.6 MMOL/L (3.6-5.0); SODIUM 139 MMOL/L (135-145)
[2019-01-29 12:49] LABS: HEMATOCRIT 32 % (40-54); HEMOGLOBIN 9.7 G/DL (13.3-17.7); MEAN CORPUSCULAR HEMOGLOBIN 28 PG (25-34); MEAN CORPUSCULAR HGB CONC 31 G/DL (32-36); MEAN CORPUSCULAR VOLUME 90 FL (80-99); MEAN PLATELET VOLUME 8.5 FL (7.4-10.4); PLATELET COUNT 147 10^3/uL (130-400); RED CELL DISTRIBUTION WIDTH 25.1 % (10.0-14.5); WHITE BLOOD COUNT 4.8 10^3/uL (4.3-11.0)
[2019-01-29 12:50] LABS: BASOPHILS % (AUTO) 0 % (0-10); EOSINOPHILS # (AUTO) 0.1 10^3/uL (0.0-0.3); EOSINOPHILS % (AUTO) 2 % (0-10); LYMPHOCYTES # (AUTO) 0.6 X 10^3 (1.0-4.0); LYMPHOCYTES % (AUTO) 11 % (12-44); MONOCYTES # (AUTO) 0.8 X 10^3 (0.0-1.0); MONOCYTES % (AUTO) 16 % (0-12); NEUTROPHILS # (AUTO) 3.4 X 10^3 (1.8-7.8); NEUTROPHILS % (AUTO) 70 % (42-75)
[2019-01-29 13:47] LABS: BUN/CREATININE RATIO 16; CALCIUM 8.5 MG/DL (8.5-10.1); CARBON DIOXIDE 27 MMOL/L (21-32); CHLORIDE 102 MMOL/L (98-107); CREATININE SERUM 0.99 MG/DL (0.60-1.30); GFR ESTIMATED > 60; GLUCOSE 87 MG/DL (70-105); POTASSIUM 4.4 MMOL/L (3.6-5.0); SODIUM 138 MMOL/L (135-145)
[2019-02-05 11:29] LABS: HEMATOCRIT 31 % (40-54); HEMOGLOBIN 9.9 G/DL (13.3-17.7); LYMPHOCYTES % (AUTO) 10 % (12-44); MEAN CORPUSCULAR HEMOGLOBIN 29 PG (25-34); MEAN CORPUSCULAR HGB CONC 32 G/DL (32-36); MEAN CORPUSCULAR VOLUME 91 FL (80-99); MEAN PLATELET VOLUME 8.7 FL (7.4-10.4); NEUTROPHILS % (AUTO) 76 % (42-75); PLATELET COUNT 169 10^3/uL (130-400); RED CELL DISTRIBUTION WIDTH 27.2 % (10.0-14.5); WHITE BLOOD COUNT 5.5 10^3/uL (4.3-11.0)
[2019-02-05 11:30] LABS: BASOPHILS % (AUTO) 0 % (0-10); EOSINOPHILS # (AUTO) 0.1 10^3/uL (0.0-0.3); EOSINOPHILS % (AUTO) 2 % (0-10); LYMPHOCYTES # (AUTO) 0.5 X 10^3 (1.0-4.0); MONOCYTES # (AUTO) 0.6 X 10^3 (0.0-1.0); MONOCYTES % (AUTO) 11 % (0-12); NEUTROPHILS # (AUTO) 4.2 X 10^3 (1.8-7.8)
[2019-02-05 11:48] LABS: BUN/CREATININE RATIO 16; CALCIUM 8.6 MG/DL (8.5-10.1); CARBON DIOXIDE 25 MMOL/L (21-32); CHLORIDE 104 MMOL/L (98-107); CREATININE SERUM 1.06 MG/DL (0.60-1.30); GFR ESTIMATED > 60; GLUCOSE 127 MG/DL (70-105); POTASSIUM 4.4 MMOL/L (3.6-5.0); SODIUM 139 MMOL/L (135-145)
[2019-02-19 13:04] LABS: BASOPHILS % (AUTO) 0 % (0-10); EOSINOPHILS % (AUTO) 2 % (0-10); HEMATOCRIT 32 % (40-54); LYMPHOCYTES % (AUTO) 10 % (12-44); MEAN CORPUSCULAR HEMOGLOBIN 30 PG (25-34); MEAN CORPUSCULAR HGB CONC 31 G/DL (32-36); MEAN CORPUSCULAR VOLUME 96 FL (80-99); MEAN PLATELET VOLUME 9.5 FL (7.4-10.4); MONOCYTES % (AUTO) 14 % (0-12); NEUTROPHILS # (AUTO) 4.2 X 10^3 (1.8-7.8); NEUTROPHILS % (AUTO) 74 % (42-75); PLATELET COUNT 158 10^3/uL (130-400); RED CELL DISTRIBUTION WIDTH 28.5 % (10.0-14.5); WHITE BLOOD COUNT 5.7 10^3/uL (4.3-11.0)
[2019-02-19 13:05] LABS: EOSINOPHILS # (AUTO) 0.1 10^3/uL (0.0-0.3); LYMPHOCYTES # (AUTO) 0.5 X 10^3 (1.0-4.0); MONOCYTES # (AUTO) 0.8 X 10^3 (0.0-1.0)
[2019-02-19 13:10] LABS: BUN/CREATININE RATIO 16; CARBON DIOXIDE 26 MMOL/L (21-32); CHLORIDE 101 MMOL/L (98-107); GFR ESTIMATED > 60; POTASSIUM 4.5 MMOL/L (3.6-5.0); SODIUM 138 MMOL/L (135-145)
[2019-02-19 13:11] LABS: CALCIUM 8.8 MG/DL (8.5-10.1); GLUCOSE 104 MG/DL (70-105)
[2019-03-12 10:16] LABS: BASOPHILS % (AUTO) 0 % (0-10); EOSINOPHILS % (AUTO) 2 % (0-10); HEMATOCRIT 33 % (40-54); HEMOGLOBIN 10.4 G/DL (13.3-17.7); LYMPHOCYTES # (AUTO) 0.5 X 10^3 (1.0-4.0); LYMPHOCYTES % (AUTO) 9 % (12-44); MEAN CORPUSCULAR HEMOGLOBIN 31 PG (25-34); MEAN CORPUSCULAR HGB CONC 32 G/DL (32-36); MEAN CORPUSCULAR VOLUME 98 FL (80-99); MEAN PLATELET VOLUME 9.1 FL (7.4-10.4); MONOCYTES # (AUTO) 0.6 X 10^3 (0.0-1.0); MONOCYTES % (AUTO) 11 % (0-12); NEUTROPHILS # (AUTO) 4.4 X 10^3 (1.8-7.8); NEUTROPHILS % (AUTO) 78 % (42-75); PLATELET COUNT 145 10^3/uL (130-400); RED CELL DISTRIBUTION WIDTH 29.1 % (10.0-14.5); WHITE BLOOD COUNT 5.7 10^3/uL (4.3-11.0)
[2019-03-12 10:17] LABS: EOSINOPHILS # (AUTO) 0.1 10^3/uL (0.0-0.3)
[2019-03-12 10:31] LABS: BUN/CREATININE RATIO 15; CALCIUM 8.8 MG/DL (8.5-10.1); CARBON DIOXIDE 26 MMOL/L (21-32); CHLORIDE 103 MMOL/L (98-107); GFR ESTIMATED > 60; GLUCOSE 149 MG/DL (70-105); POTASSIUM 4.2 MMOL/L (3.6-5.0); SODIUM 140 MMOL/L (135-145)
[~2019-03-19 12:55] MED LIST changes: -BARIUM SUSPENSION 2.1% (VANILLA SILQ) 450 ML PO ONE; -HOLD METFORMIN - RECEIVED CONTRAST 20 ML VIAL IV SCH; -IOHEXOL 350 MG/ML 100 ML (OMNIPAQUE 350) VIAL IV ONE; -NS 100 ML (IVPB) BAG IV ONE
[2019-03-19 13:52] LABS: BASOPHILS % (AUTO) 0 % (0-10); EOSINOPHILS # (AUTO) 0.1 10^3/uL (0.0-0.3); EOSINOPHILS % (AUTO) 2 % (0-10); HEMATOCRIT 32 % (40-54); HEMOGLOBIN 10.1 G/DL (13.3-17.7); LYMPHOCYTES # (AUTO) 0.5 X 10^3 (1.0-4.0); LYMPHOCYTES % (AUTO) 9 % (12-44); MEAN CORPUSCULAR HEMOGLOBIN 32 PG (25-34); MEAN CORPUSCULAR HGB CONC 32 G/DL (32-36); MEAN CORPUSCULAR VOLUME 101 FL (80-99); MONOCYTES # (AUTO) 0.8 X 10^3 (0.0-1.0); MONOCYTES % (AUTO) 13 % (0-12); NEUTROPHILS # (AUTO) 4.5 X 10^3 (1.8-7.8); NEUTROPHILS % (AUTO) 75 % (42-75); PLATELET COUNT 144 10^3/uL (130-400); RED CELL DISTRIBUTION WIDTH 29.3 % (10.0-14.5)
[2019-03-19 14:04] LABS: BUN/CREATININE RATIO 14; CALCIUM 8.6 MG/DL (8.5-10.1); CARBON DIOXIDE 27 MMOL/L (21-32); CHLORIDE 104 MMOL/L (98-107); CREATININE SERUM 1.16 MG/DL (0.60-1.30); GFR ESTIMATED > 60; GLUCOSE 113 MG/DL (70-105); POTASSIUM 4.6 MMOL/L (3.6-5.0); SODIUM 139 MMOL/L (135-145)
== END 2019-03-25 | disposition home or self-care (01) ==
LOC: LAB FS 12:55
PROVIDERS: ATTEND Internal Medicine Hematology & Oncology
DX: C18.2 Malignant neoplasm of ascending colon (principal)
CPT/HCPCS: 36415; 80048; 85025

== ENCOUNTER 2019-05-21 11:03 | Outpatient (RCR) | payer MEDICARE ==
[2019-04-03 10:58] LABS: HEMATOCRIT 33 % (40-54); HEMOGLOBIN 10.5 G/DL (13.3-17.7); MEAN CORPUSCULAR HEMOGLOBIN 33 PG (25-34); MEAN CORPUSCULAR HGB CONC 32 G/DL (32-36); MEAN CORPUSCULAR VOLUME 102 FL (80-99); WHITE BLOOD COUNT 7.6 10^3/uL (4.3-11.0)
[2019-04-03 10:59] LABS: BASOPHILS % (AUTO) 0 % (0-10); EOSINOPHILS # (AUTO) 0.2 10^3/uL (0.0-0.3); EOSINOPHILS % (AUTO) 2 % (0-10); LYMPHOCYTES # (AUTO) 0.6 X 10^3 (1.0-4.0); LYMPHOCYTES % (AUTO) 7 % (12-44); MONOCYTES # (AUTO) 0.9 X 10^3 (0.0-1.0); MONOCYTES % (AUTO) 12 % (0-12); NEUTROPHILS # (AUTO) 5.9 X 10^3 (1.8-7.8); NEUTROPHILS % (AUTO) 77 % (42-75); PLATELET COUNT 144 10^3/uL (130-400); RED CELL DISTRIBUTION WIDTH 26.7 % (10.0-14.5)
[2019-04-03 11:18] LABS: BUN/CREATININE RATIO 16; CALCIUM 8.7 MG/DL (8.5-10.1); CARBON DIOXIDE 24 MMOL/L (21-32); CHLORIDE 103 MMOL/L (98-107); CREATININE SERUM 1.12 MG/DL (0.60-1.30); GFR ESTIMATED > 60; GLUCOSE 140 MG/DL (70-105); POTASSIUM 4.5 MMOL/L (3.6-5.0); SODIUM 139 MMOL/L (135-145)
[2019-04-10 11:23] LABS: BASOPHILS % (AUTO) 0 % (0-10); EOSINOPHILS % (AUTO) 2 % (0-10); HEMATOCRIT 33 % (40-54); HEMOGLOBIN 10.7 G/DL (13.3-17.7); LYMPHOCYTES % (AUTO) 8 % (12-44); MEAN CORPUSCULAR HEMOGLOBIN 34 PG (25-34); MEAN CORPUSCULAR HGB CONC 33 G/DL (32-36); MEAN CORPUSCULAR VOLUME 103 FL (80-99); MEAN PLATELET VOLUME 8.7 FL (7.4-10.4); MONOCYTES % (AUTO) 11 % (0-12); NEUTROPHILS % (AUTO) 78 % (42-75); PLATELET COUNT 156 10^3/uL (130-400); WHITE BLOOD COUNT 6.1 10^3/uL (4.3-11.0)
[2019-04-10 11:24] LABS: EOSINOPHILS # (AUTO) 0.1 10^3/uL (0.0-0.3); LYMPHOCYTES # (AUTO) 0.5 X 10^3 (1.0-4.0); MONOCYTES # (AUTO) 0.6 X 10^3 (0.0-1.0); NEUTROPHILS # (AUTO) 4.8 X 10^3 (1.8-7.8)
[2019-04-10 11:29] LABS: BUN/CREATININE RATIO 14; CALCIUM 8.7 MG/DL (8.5-10.1); CARBON DIOXIDE 23 MMOL/L (21-32); CHLORIDE 103 MMOL/L (98-107); CREATININE SERUM 1.16 MG/DL (0.60-1.30); GFR ESTIMATED > 60; GLUCOSE 162 MG/DL (70-105); POTASSIUM 4.5 MMOL/L (3.6-5.0); SODIUM 139 MMOL/L (135-145)
[2019-04-23 11:41] LABS: BASOPHILS % (AUTO) 0 % (0-10); EOSINOPHILS % (AUTO) 2 % (0-10); HEMATOCRIT 32 % (40-54); HEMOGLOBIN 10.3 G/DL (13.3-17.7); LYMPHOCYTES # (AUTO) 0.6 X 10^3 (1.0-4.0); LYMPHOCYTES % (AUTO) 11 % (12-44); MEAN CORPUSCULAR HEMOGLOBIN 34 PG (25-34); MEAN CORPUSCULAR HGB CONC 32 G/DL (32-36); MEAN CORPUSCULAR VOLUME 105 FL (80-99); MONOCYTES % (AUTO) 13 % (0-12); NEUTROPHILS # (AUTO) 4.3 X 10^3 (1.8-7.8); NEUTROPHILS % (AUTO) 74 % (42-75); PLATELET COUNT 137 10^3/uL (130-400); RED CELL DISTRIBUTION WIDTH 25.4 % (10.0-14.5); WHITE BLOOD COUNT 5.9 10^3/uL (4.3-11.0)
[2019-04-23 11:42] LABS: EOSINOPHILS # (AUTO) 0.1 10^3/uL (0.0-0.3); MONOCYTES # (AUTO) 0.7 X 10^3 (0.0-1.0)
[2019-04-23 11:43] LABS: CALCIUM 8.6 MG/DL (8.5-10.1); CREATININE SERUM 1.19 MG/DL (0.60-1.30); POTASSIUM 4.6 MMOL/L (3.6-5.0)
[2019-04-30 11:35] LABS: HEMATOCRIT 35 % (40-54); HEMOGLOBIN 11.1 G/DL (13.3-17.7); MEAN CORPUSCULAR HEMOGLOBIN 34 PG (25-34); MEAN CORPUSCULAR HGB CONC 32 G/DL (32-36); MEAN CORPUSCULAR VOLUME 106 FL (80-99); RED CELL DISTRIBUTION WIDTH 25.4 % (10.0-14.5); WHITE BLOOD COUNT 5.5 10^3/uL (4.3-11.0)
[2019-04-30 11:36] LABS: BASOPHILS % (AUTO) 0 % (0-10); EOSINOPHILS # (AUTO) 0.2 10^3/uL (0.0-0.3); EOSINOPHILS % (AUTO) 3 % (0-10); LYMPHOCYTES # (AUTO) 0.7 X 10^3 (1.0-4.0); LYMPHOCYTES % (AUTO) 12 % (12-44); MEAN PLATELET VOLUME 9.1 FL (7.4-10.4); MONOCYTES # (AUTO) 0.8 X 10^3 (0.0-1.0); MONOCYTES % (AUTO) 15 % (0-12); NEUTROPHILS # (AUTO) 3.8 X 10^3 (1.8-7.8); NEUTROPHILS % (AUTO) 69 % (42-75); PLATELET COUNT 130 10^3/uL (130-400)
[2019-04-30 11:50] LABS: CALCIUM 8.7 MG/DL (8.5-10.1); CREATININE SERUM 1.17 MG/DL (0.60-1.30); POTASSIUM 4.4 MMOL/L (3.6-5.0)
[2019-05-14 10:32] LABS: HEMATOCRIT 35 % (40-54); HEMOGLOBIN 11.4 G/DL (13.3-17.7); MEAN CORPUSCULAR HEMOGLOBIN 34 PG (25-34); MEAN CORPUSCULAR VOLUME 106 FL (80-99); WHITE BLOOD COUNT 7.1 10^3/uL (4.3-11.0)
[2019-05-14 10:33] LABS: BASOPHILS % (AUTO) 0 % (0-10); EOSINOPHILS # (AUTO) 0.2 10^3/uL (0.0-0.3); EOSINOPHILS % (AUTO) 3 % (0-10); LYMPHOCYTES # (AUTO) 0.6 X 10^3 (1.0-4.0); LYMPHOCYTES % (AUTO) 9 % (12-44); MEAN CORPUSCULAR HGB CONC 32 G/DL (32-36); MEAN PLATELET VOLUME 9.5 FL (7.4-10.4); MONOCYTES # (AUTO) 0.8 X 10^3 (0.0-1.0); MONOCYTES % (AUTO) 11 % (0-12); NEUTROPHILS # (AUTO) 5.4 X 10^3 (1.8-7.8); NEUTROPHILS % (AUTO) 77 % (42-75); PLATELET COUNT 140 10^3/uL (130-400)
[2019-05-14 10:34] LABS: CREATININE SERUM 1.26 MG/DL (0.60-1.30); POTASSIUM 4.8 MMOL/L (3.6-5.0)
[~2019-05-21 11:03] MED LIST changes: -METO-370 PO; +METO50TA7 PO; +VITA-272 PO; -VITA400C58 PO
[2019-05-21 13:15] LABS: HEMATOCRIT 33 % (40-54); HEMOGLOBIN 10.8 G/DL (13.3-17.7); LYMPHOCYTES % (AUTO) 10 % (12-44); MEAN CORPUSCULAR HEMOGLOBIN 35 PG (25-34); MEAN CORPUSCULAR HGB CONC 33 G/DL (32-36); MEAN CORPUSCULAR VOLUME 107 FL (80-99); MEAN PLATELET VOLUME 9.9 FL (7.4-10.4); MONOCYTES % (AUTO) 11 % (0-12); NEUTROPHILS % (AUTO) 76 % (42-75); PLATELET COUNT 140 10^3/uL (130-400); RED CELL DISTRIBUTION WIDTH 25.2 % (10.0-14.5)
[2019-05-21 13:16] LABS: BASOPHILS % (AUTO) 0 % (0-10); EOSINOPHILS # (AUTO) 0.1 10^3/uL (0.0-0.3); EOSINOPHILS % (AUTO) 2 % (0-10); LYMPHOCYTES # (AUTO) 0.6 X 10^3 (1.0-4.0); MONOCYTES # (AUTO) 0.7 X 10^3 (0.0-1.0); NEUTROPHILS # (AUTO) 4.6 X 10^3 (1.8-7.8)
[2019-05-21 13:17] LABS: SMEAR SCAN COMMENT ANISO1+
[2019-05-21 13:31] LABS: CALCIUM 8.8 MG/DL (8.5-10.1); CREATININE SERUM 1.24 MG/DL (0.60-1.30); POTASSIUM 4.6 MMOL/L (3.6-5.0)
[2019-06-08] MEDS ORDERED: PANT40SU PO ×2 (18:48→18:50)
[2019-06-09] MEDS ORDERED: PANT40TA3 PO (11:32)
[2019-06-09] MEDS ORDERED: BISA-65 PO (11:33)
[2019-06-09] MEDS ORDERED: FURO20TA4 PO (13:47)
== END 2019-07-02 | disposition home or self-care (01) ==
LOC: LAB FS 11:03
PROVIDERS: ATTEND Internal Medicine Hematology & Oncology
DX: C18.2 Malignant neoplasm of ascending colon (principal)
CPT/HCPCS: 36415; 80048; 85025

== ENCOUNTER → 2019-05-27 | Outpatient (CLI) | payer MEDICARE ==
--- NOTE | 2019-05-29 13:53 | Diagnostic Imaging Report ---
PET/CT. INDICATION: Colon cancer. EXAMINATION: After intravenous administration of 13.78 mCi of F18-FDG injected into the right hand, a series of overlapping emission and transmission PET images was obtained. In the coronal, transaxial and sagittal planes, the area imaged extended from the skull base through the upper thighs. FINDINGS: His height is 5' 6", weight 260 lbs, and his blood glucose level was 97. The previous PET/CT exam performed on 12/03/2018 noted increased hypermetabolic activity in the region of the anastomosis of the right hemicolectomy. There was also a 3.6 x 3.7 cm hypermetabolic mass in this same area. These findings were felt to be neoplastic in nature. On this exam, there is no hypermetabolic activity near the anastomosis of the right hemicolectomy to suggest malignancy. There is still slightly increased hypermetabolic activity in this area with a maximum SUV of 3.4. The hypermetabolic mass in this region seen previously is not identified either. There are two segments of small bowel folded on themselves in the region of the mass but these are not hypermetabolic. There is no other hypermetabolic activity identified to suggest the presence of malignancy. Physiologic activity is seen throughout the remaining colon. There is also physiologic activity in the kidneys, bladder, and brain. The CT images failed to show any sign of an acute abnormality. IMPRESSION: 1. The appearance of the PET/CT exam has improved since the prior exam as there is only a small amount of residual hypermetabolic activity in the region of the anastomosis of the right hemicolon. The hypermetabolic soft tissue mass seen in this area previously has resolved. 2. There is no other hypermetabolic activity seen to suggest the presence of malignancy. 3. There is no acute abnormality identified. Dictated on workstation # [id number]
== END ==
LOC: RAD 09:04
PROVIDERS: ATTEND Nurse Practitioner Adult Health
DX: C18.2 Malignant neoplasm of ascending colon (principal)

== ENCOUNTER → 2019-06-03 | Outpatient (RCR) | payer MEDICARE ==
[2019-03-05 08:56] LABS: BASOPHILS % (AUTO) 0 % (0-10); EOSINOPHILS # (AUTO) 0.2 10^3/uL (0.0-0.3); EOSINOPHILS % (AUTO) 3 % (0-10); HEMATOCRIT 33 % (40-54); HEMOGLOBIN 10.4 G/DL (13.3-17.7); LYMPHOCYTES # (AUTO) 0.6 X 10^3 (1.0-4.0); LYMPHOCYTES % (AUTO) 10 % (12-44); MEAN CORPUSCULAR HEMOGLOBIN 31 PG (25-34); MEAN CORPUSCULAR HGB CONC 32 G/DL (32-36); MEAN CORPUSCULAR VOLUME 98 FL (80-99); MEAN PLATELET VOLUME 8.5 FL (7.4-10.4); MONOCYTES # (AUTO) 0.6 X 10^3 (0.0-1.0); MONOCYTES % (AUTO) 10 % (0-12); NEUTROPHILS # (AUTO) 4.4 X 10^3 (1.8-7.8); NEUTROPHILS % (AUTO) 77 % (42-75); PLATELET COUNT 129 10^3/uL (130-400); RED CELL DISTRIBUTION WIDTH 30.3 % (10.0-14.5); WHITE BLOOD COUNT 5.7 10^3/uL (4.3-11.0)
[2019-03-05 09:14] LABS: ALBUMIN 3.7 GM/DL (3.2-4.5); BILIRUBIN,TOTAL 0.6 MG/DL (0.1-1.0); CALCIUM 8.5 MG/DL (8.5-10.1); CREATININE SERUM 1.18 MG/DL (0.60-1.30); MAGNESIUM 1.7 MG/DL (1.6-2.4); POTASSIUM 4.1 MMOL/L (3.6-5.0); TOTAL PROTEIN 6.4 GM/DL (6.4-8.2)
[2019-03-26 09:28] LABS: BASOPHILS % (AUTO) 0 % (0-10); EOSINOPHILS # (AUTO) 0.2 10^3/uL (0.0-0.3); EOSINOPHILS % (AUTO) 3 % (0-10); HEMATOCRIT 33 % (40-54); HEMOGLOBIN 10.4 G/DL (13.3-17.7); LYMPHOCYTES # (AUTO) 0.6 X 10^3 (1.0-4.0); LYMPHOCYTES % (AUTO) 12 % (12-44); MEAN CORPUSCULAR HEMOGLOBIN 33 PG (25-34); MEAN CORPUSCULAR HGB CONC 32 G/DL (32-36); MEAN CORPUSCULAR VOLUME 102 FL (80-99); MEAN PLATELET VOLUME 8.4 FL (7.4-10.4); MONOCYTES # (AUTO) 0.7 X 10^3 (0.0-1.0); MONOCYTES % (AUTO) 14 % (0-12); NEUTROPHILS # (AUTO) 3.2 X 10^3 (1.8-7.8); NEUTROPHILS % (AUTO) 70 % (42-75); PLATELET COUNT 132 10^3/uL (130-400); WHITE BLOOD COUNT 4.5 10^3/uL (4.3-11.0)
[2019-03-26 09:54] LABS: ALANINE AMINOTRANSFERASE 17 U/L (0-55); ALBUMIN 3.7 GM/DL (3.2-4.5); ALKALINE PHOSPHATASE 81 U/L (40-136); BILIRUBIN,TOTAL 0.5 MG/DL (0.1-1.0); BUN/CREATININE RATIO 14; CALCIUM 8.5 MG/DL (8.5-10.1); CARBON DIOXIDE 25 MMOL/L (21-32); CHLORIDE 108 MMOL/L (98-107); CREATININE SERUM 1.06 MG/DL (0.60-1.30); GFR ESTIMATED > 60; GLUCOSE 127 MG/DL (70-105); MAGNESIUM 1.9 MG/DL (1.6-2.4); POTASSIUM 4.3 MMOL/L (3.6-5.0); SODIUM 142 MMOL/L (135-145); TOTAL PROTEIN 6.4 GM/DL (6.4-8.2)
[2019-04-16 10:31] LABS: BASOPHILS % (AUTO) 0 % (0-10); EOSINOPHILS # (AUTO) 0.2 10^3/uL (0.0-0.3); EOSINOPHILS % (AUTO) 4 % (0-10); HEMATOCRIT 32 % (40-54); HEMOGLOBIN 10.1 G/DL (13.3-17.7); LYMPHOCYTES # (AUTO) 0.5 X 10^3 (1.0-4.0); LYMPHOCYTES % (AUTO) 12 % (12-44); MEAN CORPUSCULAR HEMOGLOBIN 34 PG (25-34); MEAN CORPUSCULAR HGB CONC 32 G/DL (32-36); MEAN CORPUSCULAR VOLUME 105 FL (80-99); MEAN PLATELET VOLUME 7.7 FL (7.4-10.4); MONOCYTES # (AUTO) 0.9 X 10^3 (0.0-1.0); MONOCYTES % (AUTO) 19 % (0-12); NEUTROPHILS % (AUTO) 66 % (42-75); PLATELET COUNT 114 10^3/uL (130-400); WHITE BLOOD COUNT 4.5 10^3/uL (4.3-11.0)
[2019-04-16 10:58] LABS: ALANINE AMINOTRANSFERASE 19 U/L (0-55); ALBUMIN 3.6 GM/DL (3.2-4.5); ALKALINE PHOSPHATASE 79 U/L (40-136); BILIRUBIN,TOTAL 0.4 MG/DL (0.1-1.0); BUN/CREATININE RATIO 15; CARBON DIOXIDE 25 MMOL/L (21-32); CHLORIDE 110 MMOL/L (98-107); CREATININE SERUM 1.07 MG/DL (0.60-1.30); GFR ESTIMATED > 60; GLUCOSE 101 MG/DL (70-105); MAGNESIUM 1.8 MG/DL (1.6-2.4); POTASSIUM 4.2 MMOL/L (3.6-5.0); SODIUM 143 MMOL/L (135-145); TOTAL PROTEIN 6.2 GM/DL (6.4-8.2)
[2019-05-07 10:11] LABS: BASOPHILS % (AUTO) 0 % (0-10); EOSINOPHILS # (AUTO) 0.1 10^3/uL (0.0-0.3); EOSINOPHILS % (AUTO) 2 % (0-10); HEMATOCRIT 33 % (40-54); HEMOGLOBIN 10.6 G/DL (13.3-17.7); LYMPHOCYTES # (AUTO) 0.7 X 10^3 (1.0-4.0); LYMPHOCYTES % (AUTO) 13 % (12-44); MEAN CORPUSCULAR HEMOGLOBIN 34 PG (25-34); MEAN CORPUSCULAR HGB CONC 32 G/DL (32-36); MEAN CORPUSCULAR VOLUME 106 FL (80-99); MEAN PLATELET VOLUME 9.3 FL (7.4-10.4); MONOCYTES # (AUTO) 0.8 X 10^3 (0.0-1.0); MONOCYTES % (AUTO) 15 % (0-12); NEUTROPHILS # (AUTO) 3.5 X 10^3 (1.8-7.8); NEUTROPHILS % (AUTO) 69 % (42-75); PLATELET COUNT 124 10^3/uL (130-400); WHITE BLOOD COUNT 5.1 10^3/uL (4.3-11.0)
[2019-05-07 10:30] LABS: ALBUMIN 3.6 GM/DL (3.2-4.5); BILIRUBIN,TOTAL 0.4 MG/DL (0.1-1.0); CALCIUM 8.4 MG/DL (8.5-10.1); CREATININE SERUM 1.34 MG/DL (0.60-1.30); MAGNESIUM 1.8 MG/DL (1.6-2.4); POTASSIUM 4.5 MMOL/L (3.6-5.0); TOTAL PROTEIN 6.6 GM/DL (6.4-8.2)
[2019-05-27 11:59] LABS: BASOPHILS % (AUTO) 0 % (0-10); EOSINOPHILS # (AUTO) 0.1 10^3/uL (0.0-0.3); EOSINOPHILS % (AUTO) 2 % (0-10); HEMATOCRIT 35 % (40-54); HEMOGLOBIN 11.4 G/DL (13.3-17.7); LYMPHOCYTES # (AUTO) 0.6 X 10^3 (1.0-4.0); LYMPHOCYTES % (AUTO) 11 % (12-44); MEAN CORPUSCULAR HEMOGLOBIN 35 PG (25-34); MEAN CORPUSCULAR HGB CONC 33 G/DL (32-36); MEAN CORPUSCULAR VOLUME 106 FL (80-99); MEAN PLATELET VOLUME 8.8 FL (7.4-10.4); MONOCYTES # (AUTO) 0.6 X 10^3 (0.0-1.0); MONOCYTES % (AUTO) 11 % (0-12); NEUTROPHILS # (AUTO) 4.1 X 10^3 (1.8-7.8); NEUTROPHILS % (AUTO) 76 % (42-75); PLATELET COUNT 124 10^3/uL (130-400); RED CELL DISTRIBUTION WIDTH 25.7 % (10.0-14.5); WHITE BLOOD COUNT 5.5 10^3/uL (4.3-11.0)
[2019-05-27 12:15] LABS: ALANINE AMINOTRANSFERASE 25 U/L (0-55); ALKALINE PHOSPHATASE 82 U/L (40-136); BILIRUBIN,TOTAL 0.7 MG/DL (0.1-1.0); BUN/CREATININE RATIO 17; CALCIUM 8.9 MG/DL (8.5-10.1); CARBON DIOXIDE 23 MMOL/L (21-32); CHLORIDE 107 MMOL/L (98-107); CREATININE SERUM 1.15 MG/DL (0.60-1.30); GFR ESTIMATED > 60; GLUCOSE 81 MG/DL (70-105); MAGNESIUM 1.7 MG/DL (1.6-2.4); SODIUM 139 MMOL/L (135-145); TOTAL PROTEIN 6.9 GM/DL (6.4-8.2)
[~2019-06-03] VITALS: Ht 167.6 cm; Wt 118.4 kg
[~2019-06-03] MED LIST changes: +D5W 500 ML IV (CANCER CTR) 500 ML IV SCH; +FOSAPREPITANT DIMEGLUMINE 150 MG in NS (IVPB) CANCER CENTER ONLY 150 ML IV SCH; +OXALIPLATIN 160 MG in D5W 250 ML IVPB (CANCER CTR) 250 ML IV SCH; +OXALIPLATIN 170 MG in D5W 250 ML IVPB (CANCER CTR) 250 ML IV SCH; +PALONOSETRON HCL 0.25 MG, DEXAMETHASONE INJECTION 10 MG in NS (IVPB) CANCER CENTER 50 ML IV SCH
== END | disposition home or self-care (01) ==
LOC: ONC 03-05 08:40
PROVIDERS: ATTEND Internal Medicine Hematology & Oncology
DX: Z51.11 Encounter for antineoplastic chemotherapy (principal); C18.2 Malignant neoplasm of ascending colon; Z87.891 Personal history of nicotine dependence; Z79.899 Other long term (current) drug therapy; Z90.49 Acquired absence of other specified parts of digestive tract
CPT/HCPCS: 36591; 80053; 83735; 85007; 85025; 96367; 96375; 96413; 99213

== ENCOUNTER → 2019-06-05 | Outpatient (CLI) | payer MEDICARE ==
[~2019-06-05] MED LIST changes: +BARIUM for suspension 96% w/w (Vanilla Silq Medium Density) PO ONE; +BARIUM for suspension 98% w/w (Vanilla Silq High Density) PO ONE; +BISA-65 PO; -D5W 500 ML IV (CANCER CTR) 500 ML IV SCH; -FOSAPREPITANT DIMEGLUMINE 150 MG in NS (IVPB) CANCER CENTER ONLY 150 ML IV SCH; +FURO20TA4 PO; -OXALIPLATIN 160 MG in D5W 250 ML IVPB (CANCER CTR) 250 ML IV SCH; -OXALIPLATIN 170 MG in D5W 250 ML IVPB (CANCER CTR) 250 ML IV SCH; -PALONOSETRON HCL 0.25 MG, DEXAMETHASONE INJECTION 10 MG in NS (IVPB) CANCER CENTER 50 ML IV SCH; +PANT40SU PO; +PANT40TA3 PO
--- NOTE | 2019-06-05 12:52 | Diagnostic Imaging Report ---
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 Study is performed to evaluate the duodenum for obstruction. Patient ingested barium without difficulty and serial radiographs of the abdomen were obtained. Preliminary radiograph of the abdomen demonstrates unremarkable bowel gas pattern. Initial images demonstrate contrast within the stomach with prompt excretion into the proximal small bowel. Duodenum 2nd and 3rd portions appear unremarkable. There is no focal region of narrowing or obstruction. There is prompt passage of barium into the proximal jejunum. No definite extrinsic compression or mass is seen. There is normal progression of contrast through the small bowel. Small bowel is nondistended. The mucosal fold pattern is unremarkable. Small bowel transit time appears to be normal. IMPRESSION: Postsurgical changes. No small bowel obstruction is seen. No extrinsic compression or mass in the region of the duodenum is identified. Dictated by: Dictated on workstation # [id number]
== END ==
LOC: RAD 07:15
PROVIDERS: ATTEND Internal Medicine Hematology & Oncology
DX: C61 Malignant neoplasm of prostate (principal); C18.9 Malignant neoplasm of colon, unspecified; Z90.49 Acquired absence of other specified parts of digestive tract; Z86.010 Personal history of colon polyps
CPT/HCPCS: 74250

== ENCOUNTER 2019-06-08 07:10 | Observation (INO) | payer MEDICARE ==
[2019-06-08] VITALS (10 sets, daily range): BP systolic 91–129; BP diastolic 59–75
[~2019-06-08] VITALS: Ht 167.7 cm; Wt 116.8 kg
[~2019-06-08 07:10] MED LIST changes: -BARIUM for suspension 96% w/w (Vanilla Silq Medium Density) PO ONE; -BARIUM for suspension 98% w/w (Vanilla Silq High Density) PO ONE; -BISA-65 PO; -FURO20TA4 PO; -PANT40SU PO; -PANT40TA3 PO
--- NOTE | 2019-06-08 07:18 | ED Dyspnea ---
General Stated Complaint: SOA Source of Information: Patient Exam Limitations: No Limitations History of Present Illness Date Seen by Provider: Jun 08, 2019 Time Seen by Provider: 07:16 Initial Comments 78-year-old male presents with some shortness of breath. Patient reports that been going on for a couple days for a little bit worse last night. Patient rep orts a history of COPD and a cardiac history. He presents today because he wanted to just get checked out. Patient denies any fevers or chills. Denies any body aches. No wheezing. Patient mainly just reports he feels that he is a little bit more short of breath than normal. Does not have any chest pain. Allergies and Home Medications Allergies Coded Allergies: Lvwyiel-Kwm-Xfz Reductase Inhibitor (Verified Allergy, Severe, ELEVATED LIVER ENZYMES, 11/25/18) ketorolac (Verified Allergy, Intermediate, 11/25/18) hallucinations amoxicillin (Verified Allergy, Mild, ITCHING/RASH/GI UPSET, 11/25/18) felodipine (Verified Allergy, Mild, HAND SWELLING, 11/25/18) Home Medications Acetaminophen 500 Mg Tablet, 500 MG PO Q6H PRN for PAIN-MILD, (Reported) Albuterol/Ipratropium 4 Gm Aero, 2 PUFF IH Q6H PRN for SHORTNESS OF BREATH, (Reported) Allopurinol 100 Mg Tablet, 100 MG PO DAILY, (Reported) Aspirin 81 Mg Tablet.dr, 81 MG PO DAILY, (Reported) Lisinopril 5 Mg Tablet, 2.5 MG PO DAILY, (Reported) Metoprolol Succinate 50 Mg Tab.er.24h, 25 MG PO DAILY, (Reported) Multivitamin 1 Each Tablet, 1 TAB PO DAILY, (Reported) Niacin (Inositol Niacinate) 500 Mg Capsule, 250 MG PO DAILY, (Reported) Nitroglycerin 0.4 Mg Tab.subl, 0.4 MG SL UD PRN for CHEST PAIN, (Reported) [place] 3 Polyunsat Fatty Acids 1,000 Mg Cap, 1,000 MG PO DAILY, (Reported) Vitamin E Acid Succinate 100 Unit Tablet, 100 UNIT PO DAILY, (Reported) Patient Home Medication List Home Medication List Reviewed: Yes Review of Systems Review of Systems Constitutional: No chills, No fever Respiratory: cough, short of breath; No wheezing Cardiovascular: No chest pain, No palpitations Gastrointestinal: No abdominal pain, No nausea, No vomiting Genitourinary: no symptoms reported Musculoskeletal: no symptoms reported Skin: no symptoms reported Psychiatric/Neurological: No Symptoms Reported Past Ydoypep-Richjw-Rhrejq Hx Past Med/Social Hx: Reviewed Nursing Past Med/Soc Hx Patient Social History Type Used: Cigarettes Former Smoker, Quit: September 03, 1992 2nd Hand Smoke Exposure: Yes Recent Foreign Travel: No Contact w/Someone Who Travel: No Recent Hopitalizations: No (09/23/18 COLON RESECTION) Immunizations Up To Date Date of Pneumonia Vaccine: August 14, 2016 Seasonal Allergies Seasonal Allergies: Yes (MILD) Past Medical History Surgeries: Yes (CARDIAC STENTS, CABG, LEG BX, COLON RESECTION) Tonsillectomy Respiratory: Yes COPD Cardiac: Yes (CABG, STENT) Coronary Artery Disease, High Cholesterol, Hypertension Neurological: No Sexually Transmitted Disease: No HIV/AIDS: No Genitourinary: Yes Prostate Problems, Kidney Stones Gastrointestinal: No Polyps Musculoskeletal: Yes Arthritis, Chronic Back Pain Endocrine: No HEENT: Yes (READING GLASSES) Loss of Vision: Bilateral Hearing Impairment: Denies Cancer: Yes Prostate, Skin What Type of Treatment Did You: Radiation Psychosocial: No Integumentary: No Blood Disorders: Yes (IRON DEF ANEMIA) Adverse Reaction/Blood Tranf: No (N/A) Physical Exam Vital Signs Vital Signs - First Documented 06/08/19 07:10 Temp 36.4 Pulse 61 Resp 20 B/P (MAP) 188/118 (141) Pulse Ox 97 O2 Delivery Room Air Capillary Refill : Height, Weight, BMI Height: 5'6.00" Weight: 252lbs. 0.0oz. 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 Norm as Tested Skin: Normal Color, Warm/Dry Progress/Results/Core Measures Results/Orders Lab Results Laboratory Tests Test 06/08/19 07:25 Range/Units White Blood Count 5.5 4.3-11.0 10^3/uL Red Blood Count 3.24 L 4.35-5.85 10^6/uL Hemoglobin 10.7 L 13.3-17.7 G/DL Hematocrit 34 L 40-54 % Mean Corpuscular Volume 105 H 80-99 FL Mean Corpuscular Hemoglobin 33 25-34 PG Mean Corpuscular Hemoglobin Concent 32 32-36 G/DL Red Cell Distribution Width 22.9 H 10.0-14.5 % Platelet Count 126 L 130-400 10^3/uL Mean Platelet Volume 9.3 7.4-10.4 FL Neutrophils (%) (Auto) 68 42-75 % Lymphocytes (%) (Auto) 13 12-44 % Monocytes (%) (Auto) 15 H 0-12 % Eosinophils (%) (Auto) 3 0-10 % Basophils (%) (Auto) 0 0-10 % Neutrophils # (Auto) 3.8 1.8-7.8 X 10^3 Lymphocytes # (Auto) 0.7 L 1.0-4.0 X 10^3 Monocytes # (Auto) 0.9 0.0-1.0 X 10^3 Eosinophils # (Auto) 0.2 0.0-0.3 10^3/uL Basophils # (Auto) 0.0 0.0-0.1 10^3/uL D-Dimer 1.20 H 0.00-0.49 UG/ML Sodium Level 139 135-145 MMOL/L Potassium Level 4.4 3.6-5.0 MMOL/L Chloride Level 107 98-107 MMOL/L Carbon Dioxide Level 23 21-32 MMOL/L Anion Gap 9 5-14 MMOL/L Blood Urea Nitrogen 18 7-18 MG/DL Creatinine 1.19 0.60-1.30 MG/DL Estimat Glomerular Filtration Rate 59 BUN/Creatinine Ratio 15 Glucose Level 103 70-105 MG/DL Calcium Level 8.6 8.5-10.1 MG/DL Corrected Calcium 8.9 8.5-10.1 MG/DL Magnesium Level 2.0 1.6-2.4 MG/DL Total Bilirubin 0.4 0.1-1.0 MG/DL Aspartate Amino Transf (AST/SGOT) 20 5-34 U/L Alanine Aminotransferase (ALT/SGPT) 14 0-55 U/L Alkaline Phosphatase 72 40-136 U/L Troponin I 0.052 H <0.028 NG/ML B-Type Natriuretic Peptide 437.4 H <100.0 PG/ML Total Protein 6.5 6.4-8.2 GM/DL Albumin 3.6 3.2-4.5 GM/DL Micro Results Microbiology 06/08/19 Influenza Types A,B Antigen (JOAN) - Final, Complete My Orders Orders - ISRRAEL STACY DO Cbc With Automated Diff (06/08/19 07:18) Comprehensive Metabolic Panel (06/08/19 07:18) BNP (06/08/19 07:18) Magnesium (06/08/19 07:18) Ekg Tracing (06/08/19 07:18) Ed Iv/Invasive Line Start (06/08/19 07:18) Monitor-Rhythm Ecg Trace Only (06/08/19 07:18) Albuterol/Ipra Inhalation Soln (Duoneb I (06/08/19 07:30) Chest Pa/Lat (2 View) (06/08/19 07:18) Svn Small Volume Nebulizer (06/08/19 07:18) Influenza A And B Antigens (06/08/19 07:18) Troponin I (06/08/19 07:18) Aspirin Chewable Tablet (Baby Aspirin Ch (06/08/19 08:30) Medications Given in ED Current Medications Medications Dose Ordered Sig/Christina Route Start Time Stop Time Status Last Admin Dose Admin Albuterol/ Ipratropium 3 ml ONCE ONCE INH 06/08/19 07:30 06/08/19 07:31 DC 06/08/19 07:26 3 ML Aspirin 324 mg ONCE ONCE PO 06/08/19 08:30 06/08/19 08:31 DC 06/08/19 08:34 324 MG Vital Signs/I&O 06/08/19 06/08/19 07:10 07:27 Temp 36.4 Pulse 61 Resp 20 B/P (MAP) 188/118 (141) Pulse Ox 97 95 O2 Delivery Room Air Room Air Initial ECG Impression Date: Jun 08, 2019 Initial ECG Impression Time: 07:31 Initial ECG Rate: 85 Initial ECG Rhythm: Normal Sinus Comment ventricular trigeminy, LBBB, no acute changes Diagnostic Imaging Diagonstic Imaging: Xray Plain Films/CT/US/NM/MRI: chest Comments NAME: DORON MCCARTHY MED REC#: [id number] PT STATUS: REG ER : 1940 PHYSICIAN: ISRRAEL STACY DO ADMIT DATE: 06/08/19/ER Draft Date of Exam:06/08/19 CHEST PA/LAT (2 VIEW) Clinical indication: Patient with shortness of air, cough and congestion x2 days. Exam: Chest x-ray PA and lateral views. Comparisons: CT scan of the chest with contrast dated 09/19/2018. Findings: There is mild bibasilar atelectasis. Otherwise, lungs are clear. No pleural effusion or pneumothorax. Pulmonary vasculature and cardiac silhouette are within normal limits. Stable postsurgical changes in the chest with sternotomy wires and mediastinal clips. There are degenerative spurs involving the thoracic spine. Ukadcg-j-Oskd is seen overlying the right chest with tip in the mid to distal superior vena cava. IMPRESSION: 1: There is left basilar atelectasis. Otherwise, there is no definite lung infiltrate. 2: Postoperative changes to the chest, as described above. Departure Communication (Admissions) Time/Spoke to Admitting Phy: 08:[address] Myers and Dr. Duque. We will admit patient for cardiac rule out and further evaluation. Patient admitted in stable condition Time/Spoke to Consulting Phy: 08:36 Impression Primary Impression: Elevated troponin Additional Impression: Shortness of breath Disposition: ADMITTED INPATIENT Condition: Stable Admissions Decision to Admit Reason: Admit from ER (Trauma) Decision to Admit/Date: Jun 08, 2019 Time/Decision to Admit Time: 08:30 Departure-Patient Inst. Referrals: [facility] (PCP) Primary Care Physician ESTELA GALLARDO APRN (Family) Primary Care Physician ISRRAEL STACY DO Jun 08, 2019 07:18
[2019-06-08] MEDS ORDERED: RT-ALBUTEROL/IPRATROPIUM 3 ML (DUONEB) VIAL INH ONE (07:30)
[2019-06-08 07:47] LABS: BASOPHILS % (AUTO) 0 % (0-10); EOSINOPHILS # (AUTO) 0.2 10^3/uL (0.0-0.3); EOSINOPHILS % (AUTO) 3 % (0-10); HEMATOCRIT 34 % (40-54); HEMOGLOBIN 10.7 G/DL (13.3-17.7); LYMPHOCYTES # (AUTO) 0.7 X 10^3 (1.0-4.0); LYMPHOCYTES % (AUTO) 13 % (12-44); MEAN CORPUSCULAR HEMOGLOBIN 33 PG (25-34); MEAN CORPUSCULAR HGB CONC 32 G/DL (32-36); MEAN CORPUSCULAR VOLUME 105 FL (80-99); MEAN PLATELET VOLUME 9.3 FL (7.4-10.4); MONOCYTES # (AUTO) 0.9 X 10^3 (0.0-1.0); MONOCYTES % (AUTO) 15 % (0-12); NEUTROPHILS # (AUTO) 3.8 X 10^3 (1.8-7.8); NEUTROPHILS % (AUTO) 68 % (42-75); PLATELET COUNT 126 10^3/uL (130-400); RED CELL DISTRIBUTION WIDTH 22.9 % (10.0-14.5); WHITE BLOOD COUNT 5.5 10^3/uL (4.3-11.0)
[2019-06-08 08:01] LABS: ALBUMIN 3.6 GM/DL (3.2-4.5); BILIRUBIN,TOTAL 0.4 MG/DL (0.1-1.0); CALCIUM 8.6 MG/DL (8.5-10.1); CREATININE SERUM 1.19 MG/DL (0.60-1.30); POTASSIUM 4.4 MMOL/L (3.6-5.0); TOTAL PROTEIN 6.5 GM/DL (6.4-8.2)
--- NOTE | 2019-06-08 08:06 | Diagnostic Imaging Report ---
Clinical indication: Patient with shortness of air, cough and congestion x2 days. Exam: Chest x-ray PA and lateral views. Comparisons: CT scan of the chest with contrast dated 09/19/2018. Findings: There is mild bibasilar atelectasis. Otherwise, lungs are clear. No pleural effusion or pneumothorax. Pulmonary vasculature and cardiac silhouette are within normal limits. Stable postsurgical changes in the chest with sternotomy wires and mediastinal clips. There are degenerative spurs involving the thoracic spine. Rkkvpj-u-Reie is seen overlying the right chest with tip in the mid to distal superior vena cava. IMPRESSION: 1: There is left basilar atelectasis. Otherwise, there is no definite lung infiltrate. 2: Postoperative changes to the chest, as described above. Dictated by: Dictated on workstation # [id number]
[2019-06-08] MEDS ORDERED: ASPIRIN 81 MG CHEW (CHILDREN'S ASA) PO ONE (08:30)
--- NOTE | 2019-06-08 08:43 | NUR ---
MED LIST PLACED ON CHART.
--- NOTE | 2019-06-08 08:43 | NUR ---
DR HUYNH TO ROOM
--- NOTE | 2019-06-08 09:25 | NUR ---
DORON FABIO admitted to room 416-1, with an admitting diagnosis of SOA CP, on 06/08/19 from ER via W/C, accompanied by STAFF.DORON MCCARTHY introduced to surroundings, call light, bed controls, phone, TV, temperature control, lights, meal times, smoking policy, visitor policy, side rail policy, bathrooms and showers. Patient Rights given to patient in the handbook.DORON MCCARTHY verbalizes understanding that [facility] is not responsible for the loss or damage to any personal effects or valuables that are kept in the patients posession during their hospitalization. The following Patient Care Plans were discussed with the PT: Discharge Planning, PAIN CONTROL,IV THERAPY, and TESTS AND PROCEDURES. DORON MCCARTHY verbalizes understanding of Interdisciplinary Patient Education. Patient and/or family were informed about the Rapid Response Team and its purpose.
--- NOTE | 2019-06-08 10:03 | History & Physical-Hospitalist ---
History of Present Illness HPI/Chief Complaint This is a 78-year-old white male who presents to the emergency room with complaints of increased shortness of breath for the last 2 days. He notes he's been having a cough that is been largely nonproductive. He also notes that he's beginning to have some chest pressure today with some left jaw discomfort. 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 He is currently undergoing chemotherapy for colon cancer. In addition he's had coronary artery bypass graft. He does have a bump in his troponin and his EKG shows left bundle branch block with trigeminy Source: patient, family Exam Limitations: no limitations Date Seen 06/08/19 Time Seen by a Provider: 08:30 Attending Physician Aleyda Myers MD [facility] Referring Physician Date of Admission Jun 08, 2019 at 08:30 Home Medications & Allergies Home Medications Reviewed patient Home Medication Reconciliation performed by pharmacy medication reconciliations coroner forensic technician and/or nursing. Patients Allergies have been reviewed. Allergies Allergies Coded Allergies Onfiecq-Hhw-Mos Reductase Inhibitor (Verified Allergy, Severe, ELEVATED LIVER ENZYMES, 11/25/18) ketorolac (Verified Allergy, Intermediate, 11/25/18) hallucinations amoxicillin (Verified Allergy, Mild, ITCHING/RASH/GI UPSET, 11/25/18) felodipine (Verified Allergy, Mild, HAND SWELLING, 11/25/18) Past Euvesvk-Zpvoaj-Mevbwq Hx Past Med/Social Hx: Reviewed Nursing Past Med/Soc Hx Patient Social History Marrital Status: Employed/Student: retired Alcohol Use: Denies Use Recreational Drug Use: No Smoking Status: Former Smoker Former Smoker, Quit: September 03, 1992 Type Used: Cigarettes 2nd Hand Smoke Exposure: Yes Physical Abuse Screen: No Sexual Abuse: No Recent Foreign Travel: No Contact w/other who traveled: No Recent Hopitalizations: No (09/23/18 COLON RESECTION) Recent Infectious Disease Expo: No Immunizations Up To Date Date of Pneumonia Vaccine: August 14, 2016 Seasonal Allergies Seasonal Allergies: Yes (MILD) Past Medical History Surgeries: Tonsillectomy Respiratory: COPD Cardiac: Coronary Artery Disease, High Cholesterol, Hypertension Sexually Transmitted Disease: No HIV/AIDS: No Genitourinary: Prostate Problems, Kidney Stones Gastrointestinal: Polyps Musculoskeletal: Arthritis, Chronic Back Pain Loss of Vision: Bilateral Hearing Impairment: Denies Cancer: Prostate, Skin, Colon What Type of Treatment Did You: Radiation History of Blood Disorders: Yes (IRON DEF ANEMIA) Adverse Reaction to Blood Garner: No (N/A) Review of Systems Constitutional: see HPI EENTM: no symptoms reported Respiratory: cough, dyspnea on exertion, orthopnea, short of breath Cardiovascular: other (Chest pressure jaw pain) Gastrointestinal: no symptoms reported Genitourinary: no symptoms reported Musculoskeletal: no symptoms reported Skin: other (Easy bruising) Psychiatric/Neurological: No Symptoms Reported Physical Exam Physical Exam Vital Signs Vital Signs - First Documented 06/08/19 07:10 Temp 36.4 Pulse 61 Resp 20 B/P (MAP) 188/118 (141) Pulse Ox 97 O2 Delivery Room Air Capillary Refill : Less Than 3 Seconds Height, Weight, BMI Height: 5'6.00" Weight: 252lbs. 0.0oz. 114.575893iw; 41.00 BMI Method: General Appearance: No Apparent Distress, WD/WN, Obese Neck: Limited Range of Motion, Other (Short) Respiratory: Chest Non Tender, Lungs Clear, Normal Breath Sounds, No Accessory Muscle Use, No Respiratory Distress Cardiovascular: Regular Rate, Rhythm, No Gallop, No Murmur, Extra Beats, Other (. 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 Imaging: Reviewed Imaging Report Assessment/Plan Admission Diagnosis Chest pressure with a bump in the troponin consistent with unstable angina Coronary artery disease with a history coronary artery bypass graft and stent placement COPD Cancer of the colon undergoing treatment most likely with a hypercoagulable state Hypertension Cancer the prostate Hyperlipidemia Possible obstructive sleep apnea Plan to admit for cardiology consultation and further evaluation and rule out MT Admission Status: Observation Clinical Quality Measures DVT/VTE Risk/Contraindication: Risk Factor Score Per Nursin RFS Level Per Nursing on Admit: 4+=Very High Copy Copies To 1: [facility]/ALEYDA JACQUES MD Jun 08, 2019 10:03
--- NOTE | 2019-06-08 10:04 | Consultation-Cardiology ---
HPI-Cardiology Cardiology Consultation Date of Consultation 06/08/19 Date of Admission Time Seen by Provider: 09:59 Indication: Shortness of breath HPI 78 years old gentleman with history of coronary artery disease, hypertension hyperlipidemia, has been having worsening dyspnea, had mild left-sided chest discomfort, came into the emergency room for evaluation. Currently he is chest pain-free. No palpitation. No syncope or near syncopal episode, he was scheduled for biopsy yesterday for abdominal mass Home Medications & Allergies Allergies: Coded Allergies: Ljahjmx-Krq-Kuc Reductase Inhibitor (Verified Allergy, Severe, ELEVATED LIVER ENZYMES, 11/25/18) ketorolac (Verified Allergy, Intermediate, 11/25/18) hallucinations amoxicillin (Verified Allergy, Mild, ITCHING/RASH/GI UPSET, 11/25/18) felodipine (Verified Allergy, Mild, HAND SWELLING, 11/25/18) Home Medication List Reviewed: Yes OGB-Gcacfd-Jirdlo Hx Patient Social History Marital Status: Employed/Student: retired Alcohol Use: Denies Use Recreational Drug Use: No Smoking Status: Former Smoker Type Used: Cigarettes 2nd Hand Smoke Exposure: Yes Recent Foreign Travel: No Recent Infectious Disease Expo: No Recent Hopitalizations: No (09/23/18 COLON RESECTION) Physical Abuse Screen: No Sexual Abuse: No Immunizations Up To Date Date of Pneumonia Vaccine: August 14, 2016 Past Medical History Discussed below Family Medical History Family Medical Hx Noncontributory Review of Systems-General Review of Systems Constitutional: see HPI; No chills, No fever; malaise EENTM: see HPI, no symptoms reported Respiratory: see HPI, cough, dyspnea on exertion, short of breath; No wheezing Cardiovascular: see HPI, chest pain; No edema, No Hx of Intervention, No palpit ations, No syncope, No vascular heart diseas, No other Gastrointestinal: see HPI; No abdominal pain, No nausea, No vomiting Genitourinary: no symptoms reported, see HPI Musculoskeletal: no symptoms reported, see HPI Skin: no symptoms reported, see HPI Psychiatric/Neurological: No Symptoms Reported, See HPI Reviewed Test Results Reviewed Test Results Lab Laboratory Tests Test 06/08/19 07:25 Range/Units White Blood Count 5.5 4.3-11.0 10^3/uL Red Blood Count 3.24 L 4.35-5.85 10^6/uL Hemoglobin 10.7 L 13.3-17.7 G/DL Hematocrit 34 L 40-54 % Mean Corpuscular Volume 105 H 80-99 FL Mean Corpuscular Hemoglobin 33 25-34 PG Mean Corpuscular Hemoglobin Concent 32 32-36 G/DL Red Cell Distribution Width 22.9 H 10.0-14.5 % Platelet Count 126 L 130-400 10^3/uL Mean Platelet Volume 9.3 7.4-10.4 FL Neutrophils (%) (Auto) 68 42-75 % Lymphocytes (%) (Auto) 13 12-44 % Monocytes (%) (Auto) 15 H 0-12 % Eosinophils (%) (Auto) 3 0-10 % Basophils (%) (Auto) 0 0-10 % Neutrophils # (Auto) 3.8 1.8-7.8 X 10^3 Lymphocytes # (Auto) 0.7 L 1.0-4.0 X 10^3 Monocytes # (Auto) 0.9 0.0-1.0 X 10^3 Eosinophils # (Auto) 0.2 0.0-0.3 10^3/uL Basophils # (Auto) 0.0 0.0-0.1 10^3/uL Sodium Level 139 135-145 MMOL/L Potassium Level 4.4 3.6-5.0 MMOL/L Chloride Level 107 98-107 MMOL/L Carbon Dioxide Level 23 21-32 MMOL/L Anion Gap 9 5-14 MMOL/L Blood Urea Nitrogen 18 7-18 MG/DL Creatinine 1.19 0.60-1.30 MG/DL Estimat Glomerular Filtration Rate 59 BUN/Creatinine Ratio 15 Glucose Level 103 70-105 MG/DL Calcium Level 8.6 8.5-10.1 MG/DL Corrected Calcium 8.9 8.5-10.1 MG/DL Magnesium Level 2.0 1.6-2.4 MG/DL Total Bilirubin 0.4 0.1-1.0 MG/DL Aspartate Amino Transf (AST/SGOT) 20 5-34 U/L Alanine Aminotransferase (ALT/SGPT) 14 0-55 U/L Alkaline Phosphatase 72 40-136 U/L Troponin I 0.052 H <0.028 NG/ML B-Type Natriuretic Peptide 437.4 H <100.0 PG/ML Total Protein 6.5 6.4-8.2 GM/DL Albumin 3.6 3.2-4.5 GM/DL Physical Exam Physical Exam Vital Signs Vital Signs - First Documented 06/08/19 07:10 Temp 36.4 Pulse 61 Resp 20 B/P (MAP) 188/118 (141) Pulse Ox 97 O2 Delivery Room Air Capillary Refill : Less Than 3 Seconds Height, Weight, BMI Height: 5'6.00" Weight: 252lbs. 0.0oz. 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 He reported that he had cardiac catheter done in October [address] Rajan in [place] and reported to have occlusion of some arteries with collaterals. He is currently chest pain- free. No acute EKG changes. Given aspirin in the emergency room, continue on aspirin and restart home medication. History of colon cancer, had resection, there was questionable mass during the workup and he was scheduled for biopsy, repeat PET scan reported resolution of the mass, has been managed by Dr. Evans. Hypertension, restart home medication monitor blood pressure Hyperlipidemia, monitor lipids COPD, questionable sleep apnea, has seen Dr. Jerez in the past. Degenerative joint disease Clinical Quality Measures DVT/VTE Risk/Contraindication: Risk Factor Score Per Nursin RFS Level Per Nursing on Admit: 4+=Very High BARTOLO BEDOYA MD Jun 08, 2019 10:04
[2019-06-08] MEDS ORDERED: ONDANSETRON 4 MG/2 ML (SDV) Z0FRAN IVP PRN (10:30)
[2019-06-08] MEDS ORDERED: NS IV 1000 ML 1,000 ML IV SCH (10:30)
[2019-06-08] MEDS ORDERED: CATHETER FLUSH 10 ML SYR IV PRN ×2 (10:30→14:45)
[2019-06-08] MEDS ORDERED: NITROGLYCERIN 0.4 MG SL TABS BTL 25'S SL PRN (12:15)
[2019-06-08] MEDS ORDERED: ACETAMINOPHEN 500 MG TAB (TYLENOL) PO PRN (12:15)
[2019-06-08] MEDS ORDERED: RT-ALBUTEROL/IPRATROPIUM 3 ML (DUONEB) VIAL IH SCH (12:45)
[2019-06-08] MEDS ORDERED: FUROSEMIDE 40 MG/4 ML INJ (LASIX) ONE (13:11)
[2019-06-08] MEDS ORDERED: PATIENT MAY USE OWN MEDS, ALL MC SCH (13:15)
[2019-06-08] MEDS: FUROSEMIDE 40 MG/4 ML INJ (LASIX) IVP SCH (13:22)
[2019-06-08] MEDS: ENOXAPARIN 40 MG/0.4 ML (LOVENOX) SYR SC SCH (13:22)
[2019-06-08] MEDS ORDERED: COMBIVENT RESPIMAT INH PRN ×2 (14:00→21:00)
[2019-06-08] MEDS ORDERED: NS 100 ML (IVPB) BAG IV ONE (14:45)
[2019-06-08] MEDS ORDERED: HOLD METFORMIN - RECEIVED CONTRAST 20 ML VIAL IV SCH (14:45)
[2019-06-08] MEDS ORDERED: IOHEXOL 350 MG/ML 100 ML (OMNIPAQUE 350) VIAL IV ONE (14:45)
--- NOTE | 2019-06-08 15:28 | Diagnostic Imaging Report ---
CLINICAL INDICATION: Patient with elevated troponin, looking for pulmonary embolism. Patient having trouble breathing. Patient has COPD. Patient finished chemotherapy 3-4 weeks ago for colon cancer. EXAM: CT angiogram of the chest performed with 85 mL Omnipaque 350 IV contrast. Coronal and oblique MIP images of the vasculature were created to better evaluate anatomy. Auto Exposure Controls were utilized during the CT exam to meet ALARA standards for radiation dose reduction. COMPARISON: Chest x-ray dated 06/08/2019. CT scan of the chest with contrast dated 09/19/2018. FINDINGS: There is mild atelectasis involving the posterior aspects of both lung bases. There is interval development of minimal-sized bilateral pleural effusions. Otherwise, lungs are clear. There is no significant mediastinal lymphadenopathy. Small subcentimeter lymph nodes in short axis are again seen. Again noted postop changes to the chest with multiple surgical clips in the mediastinal region. There is no evidence of pulmonary embolism. There is no thoracic aortic aneurysm or dissection. There is no axillary lymphadenopathy. Again seen right renal cyst. Nonobstructing stones involving the left kidney are noted. The remainder of the visualized upper abdominal structures show no significant abnormality. Sternotomy wires are noted. There are hypertrophic spurs involving the thoracic spine. IMPRESSION: 1: There is no evidence of pulmonary embolism. There is no thoracic aortic aneurysm or dissection. 2: There is development of small bilateral pleural effusions and mild bibasilar atelectasis. 3: Again seen postop changes to the chest and mediastinal structures. Dictated by: Dictated on workstation # [id number]
[2019-06-08] MEDS ORDERED: PANT40SU PO ×2 (18:48→18:50)
[2019-06-09] MEDS: ENOXAPARIN 40 MG/0.4 ML (LOVENOX) SYR SC SCH ×2 (00:30→11:33)
[2019-06-09 04:00] VITALS: BP 132/75
[2019-06-09 05:43] LABS: BASOPHILS % (AUTO) 0 % (0-10); EOSINOPHILS # (AUTO) 0.2 10^3/uL (0.0-0.3); EOSINOPHILS % (AUTO) 3 % (0-10); HEMATOCRIT 34 % (40-54); HEMOGLOBIN 10.6 G/DL (13.3-17.7); LYMPHOCYTES # (AUTO) 0.8 X 10^3 (1.0-4.0); LYMPHOCYTES % (AUTO) 17 % (12-44); MEAN CORPUSCULAR HEMOGLOBIN 33 PG (25-34); MEAN CORPUSCULAR HGB CONC 31 G/DL (32-36); MEAN CORPUSCULAR VOLUME 106 FL (80-99); MEAN PLATELET VOLUME 9.8 FL (7.4-10.4); MONOCYTES # (AUTO) 0.7 X 10^3 (0.0-1.0); MONOCYTES % (AUTO) 15 % (0-12); NEUTROPHILS # (AUTO) 2.9 X 10^3 (1.8-7.8); NEUTROPHILS % (AUTO) 64 % (42-75); PLATELET COUNT 123 10^3/uL (130-400); RED CELL DISTRIBUTION WIDTH 22.9 % (10.0-14.5); WHITE BLOOD COUNT 4.5 10^3/uL (4.3-11.0)
[2019-06-09 06:04] LABS: ALANINE AMINOTRANSFERASE 13 U/L (0-55); ALBUMIN 3.6 GM/DL (3.2-4.5); ALKALINE PHOSPHATASE 77 U/L (40-136); BILIRUBIN,TOTAL 0.3 MG/DL (0.1-1.0); BUN/CREATININE RATIO 12; CALCIUM 8.5 MG/DL (8.5-10.1); CARBON DIOXIDE 25 MMOL/L (21-32); CHLORIDE 107 MMOL/L (98-107); CHOLESTEROL 197 MG/DL (< 200); CREATININE SERUM 1.41 MG/DL (0.60-1.30); GFR ESTIMATED 49; GLUCOSE 99 MG/DL (70-105); HDL CHOLESTEROL 26 MG/DL (40-60); POTASSIUM 4.2 MMOL/L (3.6-5.0); SODIUM 141 MMOL/L (135-145); TOTAL PROTEIN 6.6 GM/DL (6.4-8.2); TRIGLYCERIDES 485 MG/DL (<150); VLDL CHOLESTEROL 97 MG/DL (5-40)
[2019-06-09 08:00] VITALS: BP 121/75
[2019-06-09] MEDS: FUROSEMIDE 40 MG/4 ML INJ (LASIX) IVP SCH ×2 (08:05→17:46)
[2019-06-09] MEDS ORDERED: OMEGA 3 (FISH OIL) 1000 MG CAP PO SCH (09:00)
[2019-06-09] MEDS ORDERED: ALLOPURINOL 100 MG (ZYLOPRIM) TAB PO SCH (09:00)
[2019-06-09] MEDS ORDERED: lisINopril 5 MG (PRINIVIL) TABLET PO SCH (09:00)
[2019-06-09] MEDS ORDERED: meTOproloL SUCCINATE 50 MG (TOPROL XL) TAB PO SCH (09:00)
[2019-06-09] MEDS ORDERED: ASPIRIN E.C. 81 MG (ECOTRIN) TAB PO SCH (09:00)
[2019-06-09] MEDS ORDERED: VITAMIN E ACID SUCCINATE 100 UNIT PO SCH (09:00)
--- NOTE | 2019-06-09 09:30 | Cardiology Progress Note ---
Subjective Date Seen by Provider: Jun 09, 2019 Time Seen by Provider: 09:25 Subjective/Events-last exam Patient is laying down in bed, feeling better, no new complaint, using oxygen. Review of Systems General: No Chills, No Night Sweats, No Fatigue, No Malaise, No Appetite, No Other HEENT: No Head Aches, No Visual Changes, No Eye Pain, No Ear Pain, No Dysphasia, No Sinus Congestion, No Post Nasal Drip, No Sore Throat, No Other Pulmonary: No Dyspnea, No Cough, No Pleuritic Chest Pain, No Other Cardiovascular: No: Chest Pain, Palpitations, Orthopnea, Paroxysmal Noc. Dyspnea, Edema, Lt Headedness, Other Objective-Cardiology Exam Last Set of Vital Signs Vital Signs 06/09/19 06/09/19 04:00 06:40 Temp 36.6 Pulse 73 Resp 16 B/P (MAP) 132/75 (94) Pulse Ox 98 O2 Delivery Nasal Cannula O2 Flow Rate 2.00 Capillary Refill : Less Than 3 Seconds I&O Intake and Output 06/09/19 00:00 Intake Total 1070 ml Output Total 1675 ml Balance -605 ml Intake Oral 1070 ml Output Urine Total 1675 ml # Bowel Movements 1 Daily Weight Change No No General: Alert, Oriented X3, Cooperative HEENT: Atraumatic, PERRLA Neck: Supple, No JVD, No Thyromegaly Lungs: Clear to Auscultation, Normal Air Movement Heart: Regular Rate, Normal S1, Normal S2, No Murmurs Abdomen: Normal Bowel Sounds, Soft, No Tenderness, No Hepatosplenomegaly, No Masses Extremities: No Clubbing, No Cyanosis, Normal Pulses, No Tenderness/Swelling, Other (Edema) Skin: No Rashes, No Breakdown, No Significant Lesion Neuro: Normal Gait, Normal Speech, Strength at 5/5 X4 Ext, Normal Tone, Sensation Intact Psych/Mental Status: Mental Status NL, Mood NL Results Lab Laboratory Tests 06/09/19 04:45 06/09/19 05:00 A/P-Cardiology Admission Diagnosis Chest pain Coronary artery disease Hypertension Hyperlipidemia Assessment/Plan Chest pain nonspecific etiology, slight elevation in troponin, known to have extensive coronary artery disease according to the patient. He reported that he had cardiac catheter done in October [address] Rajan in [place] and reported to have occlusion of some arteries with collaterals. He is currently chest pain- free. No acute EKG changes. Continue on aspirin, try to obtain copy of his catheterization report, okay for discharge from cardiology standpoint and follow up as an outpatient Congestive heart failure, chronic compensated left ventricular systolic dysfunction, ischemic cardiomyopathy with ejection fraction 35-40 percent, moderate severe mitral regurgitation, left atrial dilatation, continue on Toprol and lisinopril, add Lasix daily and monitor tolerance and response. COPD, dyspnea, questionable underlying sleep apnea, has seen Dr. Jerez in the past, consult Dr. Jerez for reevaluation. History of colon cancer, had resection, there was questionable mass during the workup and he was scheduled for biopsy, repeat PET scan reported resolution of the mass, has been managed by Dr. Evans. Hypertension, monitor blood pressure Hyperlipidemia, monitor lipids Degenerative joint disease Clinical Quality Measures DVT/VTE Risk/Contraindication: Risk Factor Score Per Nursin RFS Level Per Nursing on Admit: 4+=Very High BARTOLO BEDOYA MD Jun 09, 2019 09:30
--- NOTE | 2019-06-09 09:40 | Cardiology Progress Note ---
Subjective Date Seen by Provider: Jun 09, 2019 Time Seen by Provider: 08:50 Subjective/Events-last exam Patient is sitting up in bed, denies any further episode of chest pain, reports dyspnea with exertion. Objective-Cardiology Exam Last Set of Vital Signs Vital Signs 06/09/19 06/09/19 06/09/19 04:00 06:40 09:00 Temp 36.6 Pulse 73 Resp 16 B/P (MAP) 132/75 (94) Pulse Ox 98 O2 Delivery Nasal Cannula O2 Flow Rate 2.00 Capillary Refill : Less Than 3 Seconds I&O Intake and Output0 06/09/19 00:00 Intake Total 1070 ml Output Total 1675 ml Balance -605 ml Intake Oral 1070 ml Output Urine Total 1675 ml # Bowel Movements 1 Daily Weight Change No No General: Alert, Oriented X3, Cooperative HEENT: Atraumatic, PERRLA Neck: Supple, No JVD, No Thyromegaly Lungs: Clear to Auscultation, Normal Air Movement Heart: Regular Rate, Normal S1, Normal S2, No Murmurs Abdomen: Normal Bowel Sounds, Soft, No Tenderness, No Hepatosplenomegaly, No Masses Extremities: No Clubbing, No Cyanosis, Normal Pulses, No Tenderness/Swelling, Other (Edema) Skin: No Rashes, No Breakdown, No Significant Lesion Neuro: Normal Gait, Normal Speech, Strength at 5/5 X4 Ext, Normal Tone, Sensation Intact Psych/Mental Status: Mental Status NL, Mood NL Results Lab Laboratory Tests 06/09/19 04:45 06/09/19 05:00 A/P-Cardiology Admission Diagnosis Chest pain Coronary artery disease Hypertension Hyperlipidemia Assessment/Plan Chest pain nonspecific etiology, slight elevation in troponin, known to have extensive coronary artery disease according to the patient. He reported that he had cardiac catheter done in October [address] Rajan in [place] and reported to have occlusion of some arteries with collaterals. He is currently chest pain- free. No acute EKG changes. Continue on aspirin, try to obtain copy of his catheterization report, okay for discharge from cardiology standpoint and follow up as an outpatient Congestive heart failure, chronic compensated left ventricular systolic dysfunction, ischemic cardiomyopathy with ejection fraction 35-40 percent, moderate severe mitral regurgitation, left atrial dilatation, continue on curre nt medications and continue to monitor. COPD, dyspnea, questionable underlying sleep apnea, has seen Dr. Jerez in the past, consult Dr. Jerez for reevaluation. History of colon cancer, had resection, there was questionable mass during the workup and he was scheduled for biopsy, repeat PET scan reported resolution of the mass, has been managed by Dr. Evans. Hypertension, monitor blood pressure Hyperlipidemia, monitor lipids Degenerative joint disease Clinical Quality Measures DVT/VTE Risk/Contraindication: Risk Factor Score Per Nursin RFS Level Per Nursing on Admit: 4+=Very High SREE SOSA Jun 09, 2019 09:40
--- NOTE | 2019-06-09 09:43 | NUR ---
DR REAGAN NOTIFIED OF CONSULT
[2019-06-09] MEDS: FUROSEMIDE 40 MG/4 ML INJ (LASIX) IVP NR ×2 (10:41→10:51)
[2019-06-09] MEDS ORDERED: PANT40TA3 PO (11:32)
[2019-06-09] MEDS ORDERED: BISA-65 PO (11:33)
[2019-06-09 12:00] VITALS: BP 105/65
--- NOTE | 2019-06-09 12:23 | NUR ---
SPOKE WITH THE PT (HE HAD A MED LIST AND ALSO HAD HIS HOME MEDS) [facility] THE FOLLOWING ARE FILL DATES THAT ARE NOT ON THE EXT MED HISTORY: 03-27-19 ALLOPURINOL 100MG #90/90DS 04-08-2019 LISINOPRIL 2.5MG #45/90DS (GETS 5MG TABS AND CUTS IN ) 04-14-2019 METOPROLOL 25MG #45/90DS (GETS THE 50MG AND CUTS IN ) PT ALSO HAS A COMBIVENT IN THE ROOM LABELED FOR HOME USE- HOWEVER [facility] TO GET [facility] (THE DATE ON THE BOX WAS ) THEY SAID THE LAST TIME THEY MAILED OUT AN ORDER FOR THAT WAS MAY 2017. DUE TO THE PAST DUE FILL DATE AND THIS NOW BEING AN ORDER - I LEFT IT OFF THE MED REC. XELODA 500MG IS LISTED ON THE MEDICATION LIST ON THE PATIENTS CHART- HOWEVER HE IS DONE WITH THIS TREATMENT AND IS LONGER TAKING THIS MED. OTC MEDS: ASPIRIN 81MG MTV NIACIN FISH OIL TYLENOL VIT E DULCOLAX
[2019-06-09] MEDS ORDERED: FURO20TA4 PO (13:47)
[2019-06-09 16:13] VITALS: BP 126/57
--- NOTE | 2019-06-09 16:13 | Pulmonary Consultation ---
History of Present Illness History of Present Illness Date Seen by Provider: Jun 09, 2019 Time Seen by Provider: 16:08 Date of Admission Reason for Visit: Shortness of breath History of Present Illness 78yo with hx of CAD, AK, colon cancer and currently on chemotherapy presented to ED secondary to worsening SOB, and nonproductive cough over the last 2 days. Pt has also complains of chest pressure. Allergies and Home Medications Allergies Coded Allergies: Eddgpnv-Bpn-Peq Reductase Inhibitor (Verified Allergy, Severe, ELEVATED LIVER ENZYMES, 11/25/18) ketorolac (Verified Allergy, Intermediate, 11/25/18) hallucinations amoxicillin (Verified Allergy, Mild, ITCHING/RASH/GI UPSET, 11/25/18) felodipine (Verified Allergy, Mild, HAND SWELLING, 11/25/18) Home Medications Acetaminophen 500 Mg Tablet, 1,000 MG PO Q6H PRN for PAIN-MILD, (Reported) Allopurinol 100 Mg Tablet, 100 MG PO DAILY, (Reported) Aspirin 81 Mg Tablet.dr, 81 MG PO DAILY, (Reported) Bisacodyl 5 Mg Tablet.dr, 5 MG PO TID PRN for CONSTIPATION-4TH LINE, (Reported) Furosemide 20 Mg Tablet, 20 MG PO DAILY Prescribed by: SHON MCCARTNEY on 06/09/19 1347 Lisinopril 5 Mg Tablet, 2.5 MG PO DAILY, (Reported) TAKES OF A 5MG TO EQUAL 2.5MG DAILY Metoprolol Succinate 50 Mg Tab.er.24h, 25 MG PO DAILY, (Reported) TAKES OF A 50MG TO EQUAL 25MG DAILY Multivitamin 1 Each Tablet, 1 TAB PO DAILY, (Reported) Niacin (Inositol Niacinate) 500 Mg Capsule, 500 MG PO DAILY, (Reported) Nitroglycerin 0.4 Mg Tab.subl, 0.4 MG SL UD PRN for CHEST PAIN, (Reported) [place] 3 Polyunsat Fatty Acids 1,000 Mg Cap, 1,000 MG PO DAILY, (Reported) Pantoprazole Sodium 40 Mg Tablet.dr, 40 MG PO 1800, (Reported) Vitamin E Acid Succinate 100 Unit Tablet, 100 UNIT PO DAILY, (Reported) Past Gsiwxdy-Npobmj-Kjbegu Hx Past Med/Social Hx: Reviewed Nursing Past Med/Soc Hx Patient Social History Alcohol Use: Denies Use Recreational Drug Use: No Smoking Status: Former Smoker Type Used: Cigarettes Former Smoker, Quit: September 03, 1992 2nd Hand Smoke Exposure: Yes Recent Foreign Travel: No Contact w/Someone Who Travel: No Recent Infectious Disease Expo: No Recent Hopitalizations: No (09/23/18 COLON RESECTION) Immunizations Up To Date Date of Pneumonia Vaccine: August 14, 2016 Seasonal Allergies Seasonal Allergies: Yes (MILD) Past Medical History Surgeries: Yes (CARDIAC STENTS, CABG, LEG BX, COLON RESECTION) Tonsillectomy Respiratory: Yes COPD Cardiac: Yes (CABG, STENT) Coronary Artery Disease, High Cholesterol, Hypertension Neurological: No Sexually Transmitted Disease: No HIV/AIDS: No Genitourinary: Yes Prostate Problems, Kidney Stones Gastrointestinal: No Polyps Musculoskeletal: Yes Arthritis, Chronic Back Pain Endocrine: No HEENT: Yes (READING GLASSES) Loss of Vision: Bilateral Hearing Impairment: Denies Cancer: Yes Prostate, Skin, Colon What Type of Treatment Did You: Radiation Psychosocial: No Integumentary: No Blood Disorders: Yes (IRON DEF ANEMIA) Adverse Reaction/Blood Tranf: No (N/A) Sepsis Event Evaluation Height, Weight, BMI Height: 5'6.00" Weight: 252lbs. 0.0oz. 114.930714ss; 41.56 BMI Method: Exam Exam Vital Signs Date Time Temp Pulse Resp B/P (MAP) Pulse Ox O2 Delivery O2 Flow Rate FiO2 06/09/19 12:23 79 06/09/19 12:00 36.3 54 20 105/65 (78) 94 Room Air 06/09/19 11:30 95 Room Air 06/09/19 09:00 2.00 06/09/19 08:00 36.4 89 20 121/75 (90) 96 Nasal Cannula 2.00 06/09/19 06:40 73 06/09/19 04:00 36.6 70 16 132/75 (94) 98 Nasal Cannula 2.00 06/09/19 01:00 86 06/09/19 00:25 37.0 06/08/19 21:00 2.00 06/08/19 19:05 37.0 84 16 116/72 (87) 97 Nasal Cannula 2.00 06/08/19 19:00 83 06/08/19 16:18 36.9 80 22 129/69 (89) 95 Nasal Cannula 2.00 I & O 06/09/19 07:00 Intake Total 1270 ml Output Total 2075 ml Balance -805 ml Height & Weight Height: 5'6.00" Weight: 252lbs. 0.0oz. 114.672839ui; 41.56 BMI Method: General Appearance: No Apparent Distress, WD/WN HEENT: PERRL/EOMI Neck: Non Tender, Supple Respiratory: Chest Non Tender, Lungs Clear, Normal Breath Sounds, No Accessory Muscle Use Cardiovascular: Regular Rate, Rhythm, No Edema Capillary Refill: Less Than 3 Seconds Extremity: Normal Capillary Refill, Normal Inspection Neurologic/Psychiatric: Alert, Oriented x3, Normal Mood/Affect, appraiser art II-XII Norm as Tested Skin: Normal Color, Warm/Dry Results Lab Laboratory Tests 06/08/19 07:25 06/09/19 04:45 06/09/19 05:00 Assessment/Plan Assessment/Plan SOB with small bilateral pleural effusions and atelectasis -Continue lasix -BNP is 437 COPD -Duoneb -Out pt testing Probable AMOS -Out pt testing CAD with hx of CABG NSTEMI -Cardiology following HTN Hx of prostate cancer BOSSMAN REAGAN DO Jun 09, 2019 16:13
--- NOTE | 2019-06-09 17:00 | Discharge Summary ---
Discharge [facility]-PSYCHIATRIC Discharge Medications New Medications: Furosemide (Furosemide) 20 Mg Tablet 20 MG PO DAILY, #30 TAB 0 Refills Continued Medications: Acetaminophen (Acetaminophen) 500 Mg Tablet 1000 MG PO Q6H PRN for PAIN-MILD, TAB Allopurinol (Allopurinol) 100 Mg Tablet 100 MG PO DAILY, TAB Aspirin (Aspir 81) 81 Mg Tablet.dr 81 MG PO DAILY, TAB Bisacodyl (Dulcolax) 5 Mg Tablet.dr 5 MG PO TID PRN for CONSTIPATION-4TH LINE, TAB Lisinopril (Lisinopril) 5 Mg Tablet 2.5 MG PO DAILY, TAB TAKES OF A 5MG TO EQUAL 2.5MG DAILY Metoprolol Succinate (Metoprolol Succinate) 50 Mg Tab.er.24h 25 MG PO DAILY, TAB TAKES OF A 50MG TO EQUAL 25MG DAILY Multivitamin (Multi-Vitamin Daily) 1 Each Tablet 1 TAB PO DAILY, TAB Niacin (Inositol Niacinate) (Niacin 500 mg Capsule) 500 Mg Capsule 500 MG PO DAILY, CAP Nitroglycerin (Nitroglycerin) 0.4 Mg Tab.subl 0.4 MG SL UD PRN for CHEST PAIN, TAB [place] 3 Polyunsat Fatty Acids (Fish Oil 1,000 mg Capsule) 1,000 Mg Cap 1000 MG PO DAILY, CAP Pantoprazole Sodium (Pantoprazole Sodium) 40 Mg Tablet.dr 40 MG PO 1800 Vitamin E Acid Succinate (Vitamin E) 100 Unit Tablet 100 UNIT PO DAILY, TAB Patient Instructions Goal/Follow Up Appt: Follow up with Paulo Martin on 06/15 at 10 am Follow up with Dr. Randall as directed. Follow up with Dr. Jerez as directed. Return to [facility] For: Fever, chest pain, inability to keep down medications, decreased urine output Activity & Diet Discharge Diet: Cardiac Diet Activity as Tolerated: Yes Copy Copies To 1: SHON Azevedo MD Jun 09, 2019 17:00
--- NOTE | 2019-06-09 17:02 | Discharge Summary ---
Discharge Summary Hospital Course Hospital Course Date of Admission: Jun 08, 2019 at 08:30 Admission Diagnosis : Chest pain Family Physician/Provider: Sunny Martin Aprn Date of Discharge: 06/09/19 Discharge Diagnosis: Chest pain Coronary artery disease with a history coronary artery bypass graft and stent placement COPD Cancer of the colon undergoing treatment Hypertension Hyperlipidemia Possible obstructive sleep apnea Congestive heart failure, chronic compensated left ventricular systolic dysfunction, ischemic cardiomyopathy with ejection fraction 35-40 percent, moderate severe mitral regurgitation, left atrial dilatation Hospital Course: Cardiology consulted and troponins trended down. Continued on aspirin. Added furosemide. Had shortness of breath, possible sleep apnea, Dr. Jerez consulted and will follow up outpatient. Labs and Pending Lab Test: Laboratory Tests 06/09/19 04:45: Sodium Level 141, Potassium Level 4.2, Chloride Level 107, Carbon Dioxide Level 25, Anion Gap 9, Blood Urea Nitrogen 17, Creatinine 1.41H, Estimat Glomerular Filtration Rate 49, BUN/Creatinine Ratio 12, Glucose Level 99, Calcium Level 8.5, Corrected Calcium 8.8, Total Bilirubin 0.3, Aspartate Amino Transf (AST/SGOT) 21, Alanine Aminotransferase (ALT/SGPT) 13, Alkaline Phosphatase 77, Troponin I < 0.028, Total Protein 6.6, Albumin 3.6, Triglycerides Level 485H, Cholesterol Level 197, LDL Cholesterol Direct 102, VLDL Cholesterol 97H, HDL Cholesterol 26L 06/09/19 05:00: White Blood Count 4.5, Red Blood Count 3.21L, Hemoglobin 10.6L, Hematocrit 34L, Mean Corpuscular Volume 106H, Mean Corpuscular Hemoglobin 33, Mean Corpuscular Hemoglobin Concent 31L, Red Cell Distribution Width 22.9H, Platelet Count 123L, Mean Platelet Volume 9.8, Neutrophils (%) (Auto) 64, Lymphocytes (%) (Auto) 17, Monocytes (%) (Auto) 15H, Eosinophils (%) (Auto) 3, Basophils (%) (Auto) 0, Neutrophils # (Auto) 2.9, Lymphocytes # (Auto) 0.8L, Monocytes # (Auto) 0.7, Eosinophils # (Auto) 0.2, Basophils # (Auto) 0.0 Microbiology 06/08/19 Influenza Types A,B Antigen (JOAN) - Final, Complete Home Meds Active Furosemide 20 Mg Tablet 20 Mg PO DAILY Reported Dulcolax (Bisacodyl) 5 Mg Tablet.dr 5 Mg PO TID PRN Pantoprazole Sodium 40 Mg Tablet.dr 40 Mg PO 1800 Lisinopril 5 Mg Tablet 2.5 Mg PO DAILY TAKES OF A 5MG TO EQUAL 2.5MG DAILY Aspir 81 (Aspirin) 81 Mg Tablet.dr 81 Mg PO DAILY Vitamin E (Vitamin E Acid Succinate) 100 Unit Tablet 100 Unit PO DAILY Fish Oil 1,000 mg Capsule ([place] 3 Polyunsat Fatty Acids) 1,000 Mg Cap 1,000 Mg PO DAILY Nitroglycerin 0.4 Mg Tab.subl 0.4 Mg SL UD PRN Niacin 500 mg Capsule (Niacin (Inositol Niacinate)) 500 Mg Capsule 500 Mg PO DAILY Multi-Vitamin Daily (Multivitamin) 1 Each Tablet 1 Tab PO DAILY Acetaminophen 500 Mg Tablet 1,000 Mg PO Q6H PRN Metoprolol Succinate 50 Mg Tab.er.24h 25 Mg PO DAILY TAKES OF A 50MG TO EQUAL 25MG DAILY Allopurinol 100 Mg Tablet 100 Mg PO DAILY Assessment/Pt DC Instructions See hospital course Discharge Physical Examination Allergies: Coded Allergies: Lnknrca-Ama-Fja Reductase Inhibitor (Verified Allergy, Severe, ELEVATED LIVER ENZYMES, 11/25/18) ketorolac (Verified Allergy, Intermediate, 11/25/18) hallucinations amoxicillin (Verified Allergy, Mild, ITCHING/RASH/GI UPSET, 11/25/18) felodipine (Verified Allergy, Mild, HAND SWELLING, 11/25/18) General Appearance: No Apparent Distress, WD/WN Respiratory: Lungs Clear, Normal Breath Sounds Cardiovascular: Regular Rate, Rhythm, No Murmur Gastrointestinal: Normal Bowel Sounds, Non Tender, Soft; No Distended Neurologic/Psychiatric: Alert, Normal Mood/Affect Copy Copies To 1: Paulo Martin Clinical Quality Measures DVT/VTE Risk/Contraindication: Risk Factor Score Per Nursin RFS Level Per Nursing on Admit: 4+=Very High SHON MCCARTNEY MD Jun 09, 2019 17:02
[2019-06-09 17:48] VITALS: BP 126/57
--- NOTE | 2019-06-09 17:48 | NUR ---
DORON MCCARTHY demonstrates understanding of discharge instructions and accurately returns instructions upon questioning. Copy of Post-Discharge Instructions and Medication Discharge Instructions given to PT. DORON MCCARTHY is able to manage continuing needs after discharge. Patients belongings returned to PT. Skin dry and intact; no breakdown noted. Patient discharged from 416-1 on at . DORON MCCARTHY left floor via WC, accompanied by STAFF/.
[2019-06-10] MEDS ORDERED: FUROSEMIDE 20 MG (LASIX) TAB PO SCH (09:00)
== END 2019-06-09 17:48 | disposition home or self-care (01) ==
LOC: EDUNIT# 07:10 → ER 07:11 → 4TH 08:30
PROVIDERS: ADMIT Internal Medicine; ATTEND Family Medicine
DX: R07.9 Chest pain, unspecified (principal); I25.10 Atherosclerotic heart disease of native coronary artery without angina pectoris; Z95.5 Presence of coronary angioplasty implant and graft; J44.9 Chronic obstructive pulmonary disease, unspecified; I11.0 Hypertensive heart disease with heart failure; E78.5 Hyperlipidemia, unspecified; I50.22 Chronic systolic (congestive) heart failure; I25.5 Ischemic cardiomyopathy; I34.0 Nonrheumatic mitral (valve) insufficiency; E78.00 Pure hypercholesterolemia, unspecified; M19.91 Primary osteoarthritis, unspecified site; J98.11 Atelectasis; I25.2 Old myocardial infarction; J90 Pleural effusion, not elsewhere classified; M54.9 Dorsalgia, unspecified; Z85.46 Personal history of malignant neoplasm of prostate; Z85.828 Personal history of other malignant neoplasm of skin; Z85.038 Personal history of other malignant neoplasm of large intestine; Z95.1 Presence of aortocoronary bypass graft; Z92.3 Personal history of irradiation; Z87.442 Personal history of urinary calculi; Z86.010 Personal history of colon polyps; Z79.899 Other long term (current) drug therapy; Z87.891 Personal history of nicotine dependence
CPT/HCPCS: 36415; 71046; 71275; 80053; 80061; 83735; 83880; 84484; 85025; 85027; 85379; 87804; 93005; 93041; 93306; 94640; G0378

== ENCOUNTER → 2019-09-02 | Outpatient (CLI) | payer MEDICARE ==
[~2019-09-02] MED LIST changes: +BISA-65 PO; +FURO20TA4 PO; +PANT40SU PO; +PANT40TA3 PO
--- NOTE | 2019-09-02 13:23 | Diagnostic Imaging Report ---
INDICATION: Shortness of breath PA and lateral chest There are postoperative changes from CABG surgery. Right subclavian Port-A-Cath tip projects over the SVC. Heart size and pulmonary vascularity are normal. Lungs are clear. There are no effusions or pneumothoraces. IMPRESSION: Postsurgical changes in the chest. No acute abnormality seen. Dictated by: Dictated on workstation # [id number]
== END ==
LOC: RAD 11:17
PROVIDERS: ATTEND Nurse Practitioner Family
DX: J44.9 Chronic obstructive pulmonary disease, unspecified (principal); Z98.890 Other specified postprocedural states
CPT/HCPCS: 71046

== ENCOUNTER 2019-09-03 13:04 | Outpatient (RCR) | payer MEDICARE ==
[2019-09-03 13:18] LABS: BASOPHILS % (AUTO) 1 % (0-10); EOSINOPHILS # (AUTO) 0.2 10^3/uL (0.0-0.3); EOSINOPHILS % (AUTO) 4 % (0-10); HEMATOCRIT 41 % (40-54); HEMOGLOBIN 13.6 G/DL (13.3-17.7); LYMPHOCYTES # (AUTO) 0.8 X 10^3 (1.0-4.0); LYMPHOCYTES % (AUTO) 19 % (12-44); MEAN CORPUSCULAR HEMOGLOBIN 32 PG (25-34); MEAN CORPUSCULAR HGB CONC 33 G/DL (32-36); MEAN CORPUSCULAR VOLUME 97 FL (80-99); MONOCYTES # (AUTO) 0.6 X 10^3 (0.0-1.0); MONOCYTES % (AUTO) 14 % (0-12); NEUTROPHILS # (AUTO) 2.8 X 10^3 (1.8-7.8); NEUTROPHILS % (AUTO) 64 % (42-75); PLATELET COUNT 119 10^3/uL (130-400); RED CELL DISTRIBUTION WIDTH 17.1 % (10.0-14.5); WHITE BLOOD COUNT 4.4 10^3/uL (4.3-11.0)
[2019-09-03 13:37] LABS: ALBUMIN 3.9 GM/DL (3.2-4.5); BILIRUBIN,TOTAL 0.6 MG/DL (0.1-1.0); CALCIUM 8.7 MG/DL (8.5-10.1); CREATININE SERUM 1.46 MG/DL (0.60-1.30); POTASSIUM 4.5 MMOL/L (3.6-5.0); TOTAL PROTEIN 7.4 GM/DL (6.4-8.2)
[2019-12-02 14:58] LABS: BASOPHILS % (AUTO) 0 % (0-10); EOSINOPHILS # (AUTO) 0.1 10^3/uL (0.0-0.3); EOSINOPHILS % (AUTO) 3 % (0-10); HEMATOCRIT 41 % (40-54); HEMOGLOBIN 13.8 G/DL (13.3-17.7); LYMPHOCYTES # (AUTO) 0.9 X 10^3 (1.0-4.0); LYMPHOCYTES % (AUTO) 17 % (12-44); MEAN CORPUSCULAR HEMOGLOBIN 34 PG (25-34); MEAN CORPUSCULAR HGB CONC 34 G/DL (32-36); MEAN CORPUSCULAR VOLUME 101 FL (80-99); MEAN PLATELET VOLUME 8.8 FL (7.4-10.4); MONOCYTES # (AUTO) 0.5 X 10^3 (0.0-1.0); MONOCYTES % (AUTO) 10 % (0-12); NEUTROPHILS # (AUTO) 3.6 X 10^3 (1.8-7.8); NEUTROPHILS % (AUTO) 70 % (42-75); PLATELET COUNT 111 10^3/uL (130-400); RED CELL DISTRIBUTION WIDTH 13.5 % (10.0-14.5); WHITE BLOOD COUNT 5.1 10^3/uL (4.3-11.0)
[2019-12-02 15:17] LABS: ALBUMIN 3.9 GM/DL (3.2-4.5); BILIRUBIN,TOTAL 0.8 MG/DL (0.1-1.0); CALCIUM 8.9 MG/DL (8.5-10.1); CREATININE SERUM 1.42 MG/DL (0.60-1.30); POTASSIUM 4.3 MMOL/L (3.6-5.0)
== END 2019-12-02 | disposition home or self-care (01) ==
LOC: ONC 13:04
PROVIDERS: ATTEND Internal Medicine Hematology & Oncology
DX: Z45.2 Encounter for adjustment and management of vascular access device (principal); C18.2 Malignant neoplasm of ascending colon; Z87.891 Personal history of nicotine dependence; Z79.899 Other long term (current) drug therapy; Z90.49 Acquired absence of other specified parts of digestive tract; Z98.890 Other specified postprocedural states; Z92.21 Personal history of antineoplastic chemotherapy
CPT/HCPCS: 80053 ×2; 82378 ×2; 84153; 85025 ×2; 96523; G0463

== ENCOUNTER → 2019-09-05 | Outpatient (CLI) | payer MEDICARE ==
[2019-09-05 15:09] LABS: CHOLESTEROL 181 MG/DL (< 200); HDL CHOLESTEROL 29 MG/DL (40-60); TRIGLYCERIDES 313 MG/DL (<150); VLDL CHOLESTEROL 63 MG/DL (5-40)
== END ==
LOC: LAB FS 09:39
PROVIDERS: ATTEND Internal Medicine Cardiovascular Disease
DX: E78.2 Mixed hyperlipidemia (principal); I11.0 Hypertensive heart disease with heart failure; I25.10 Atherosclerotic heart disease of native coronary artery without angina pectoris; I50.20 Unspecified systolic (congestive) heart failure
CPT/HCPCS: 36415; 80061

== ENCOUNTER → 2019-09-08 | Outpatient (CLI) | payer MEDICARE ==
[~2019-09-08] MED LIST changes: +RT-ALBUTEROL SULF 2.5 MG/3 ML PRE-MIX VIAL INH ONE; +RT-ALBUTEROL SULF 2.5 MG/3 ML PRE-MIX VIAL ONE
== END ==
LOC: RT 12:54
PROVIDERS: ATTEND Nurse Practitioner Family
DX: J44.9 Chronic obstructive pulmonary disease, unspecified (principal); G47.10 Hypersomnia, unspecified; F17.211 Nicotine dependence, cigarettes, in remission; R06.83 Snoring
CPT/HCPCS: 94060; 94726; 94729

== ENCOUNTER 2019-09-09 14:34 | Outpatient (CLI) | payer MEDICARE ==
[~2019-09-09 14:34] MED LIST changes: -RT-ALBUTEROL SULF 2.5 MG/3 ML PRE-MIX VIAL INH ONE; -RT-ALBUTEROL SULF 2.5 MG/3 ML PRE-MIX VIAL ONE
== END 2019-09-09 14:58 | disposition home or self-care (01) ==
LOC: SLEEP 14:34
PROVIDERS: ATTEND Nurse Practitioner Family
DX: G47.33 Obstructive sleep apnea (adult) (pediatric) (principal); G47.10 Hypersomnia, unspecified; J44.9 Chronic obstructive pulmonary disease, unspecified; G47.31 Primary central sleep apnea; R00.1 Bradycardia, unspecified; F17.211 Nicotine dependence, cigarettes, in remission

== ENCOUNTER → 2019-10-31 | Outpatient (CLI) | payer MEDICARE ==
[~2019-10-31] MED LIST changes: +HOLD METFORMIN - RECEIVED CONTRAST 20 ML VIAL IV SCH; +IOHEXOL 350 MG/ML 100 ML (OMNIPAQUE 350) VIAL IV ONE; +NS 100 ML (IVPB) BAG IV ONE
[2019-10-31 10:41] LABS: CREATININE SERUM 1.41 MG/DL (0.60-1.30)
--- NOTE | 2019-10-31 14:16 | Diagnostic Imaging Report ---
CT CHEST W TECHNIQUE: Multiple contiguous axial images were obtained through the chest with the use of intravenous contrast. All CT scans use one or more of the following dose optimizing techniques: automated exposure control, MA and/or KvP adjustment based on a patient size and exam type, or iterative reconstruction. INDICATION: Obstructive sleep apnea. Dyspnea. COMPARISON: CTA chest from 06/08/2019. FINDINGS: Lungs and airway: No endoluminal nodule within the trachea. No pulmonary mass or consolidation. Stable 5 mm nodule along the left major fissure (image 71, series 3) that most likely represents intrapulmonary lymph node. No new concerning pulmonary nodule. No pulmonary fibrosis. Scattered calcified pulmonary granulomas are unchanged. Pleura: No pleural effusion or pneumothorax. Heart and mediastinum: Thyroid is normal. No supraclavicular or axillary lymphadenopathy. No mediastinal, hilar, or juxtaphrenic lymphadenopathy. Stable cardiomegaly status post CABG. Reflux of contrast material into the IVC and hepatic veins suggests elevated right heart pressure. No pericardial effusion. Normal-caliber thoracic aorta. Upper abdomen: Stable right renal cyst. No acute abnormality in the upper abdomen. Musculoskeletal: Sternotomy. No concerning focal osseous lesions. IMPRESSION: 1. No acute cardiopulmonary process. 2. No features of intrathoracic neoplasm. 3. Stable cardiomegaly with features suggestive of elevated right heart pressure. Dictated by: Dictated on workstation # [id number]
== END ==
LOC: RAD 10:06
PROVIDERS: ATTEND Nurse Practitioner Family
DX: G47.33 Obstructive sleep apnea (adult) (pediatric) (principal); F17.211 Nicotine dependence, cigarettes, in remission; J45.909 Unspecified asthma, uncomplicated; I51.7 Cardiomegaly
CPT/HCPCS: 36415; 71260; 82565; 84520

== ENCOUNTER 2019-11-24 19:34 | Outpatient (CLI) | payer MEDICARE ==
[~2019-11-24 19:34] MED LIST changes: -HOLD METFORMIN - RECEIVED CONTRAST 20 ML VIAL IV SCH; -IOHEXOL 350 MG/ML 100 ML (OMNIPAQUE 350) VIAL IV ONE; -NS 100 ML (IVPB) BAG IV ONE
== END 2019-11-25 05:40 | disposition home or self-care (01) ==
LOC: SLEEP 19:34
PROVIDERS: ATTEND Nurse Practitioner Family
DX: G47.33 Obstructive sleep apnea (adult) (pediatric) (principal); C18.9 Malignant neoplasm of colon, unspecified; J30.9 Allergic rhinitis, unspecified; G47.10 Hypersomnia, unspecified; I25.10 Atherosclerotic heart disease of native coronary artery without angina pectoris; I11.9 Hypertensive heart disease without heart failure; J44.9 Chronic obstructive pulmonary disease, unspecified; E78.2 Mixed hyperlipidemia; Z20.828 Contact with and (suspected) exposure to other viral communicable diseases; Z85.46 Personal history of malignant neoplasm of prostate
CPT/HCPCS: 95811

== ENCOUNTER → 2019-12-02 | Outpatient (CLI) | payer MEDICARE | LOC: ONC 14:35 | PROVIDERS: ATTEND Internal Medicine Hematology & Oncology | DX: Z45.2 Encounter for adjustment and management of vascular access device (principal); C18.2 Malignant neoplasm of ascending colon; I10 Essential (primary) hypertension; I25.10 Atherosclerotic heart disease of native coronary artery without angina pectoris; E78.2 Mixed hyperlipidemia | CPT/HCPCS: 36591 ==

== ENCOUNTER → 2020-02-26 | Outpatient (CLI) | payer MEDICARE ==
[~2020-02-26] MED LIST changes: +HOLD METFORMIN - RECEIVED CONTRAST 20 ML VIAL IV SCH; +IOHEXOL 350 MG/ML 100 ML (OMNIPAQUE 350) VIAL IV ONE; +NS 100 ML (IVPB) BAG IV ONE; -PANT40TA3 PO; +PANT40TA52 PO
--- NOTE | 2020-02-26 13:20 | Diagnostic Imaging Report ---
EXAMINATION: CT Abdomen Pelvis with and without intravenous contrast. TECHNIQUE: Precontrast acquisitions were acquired through the abdomen and pelvis. Multiple contiguous axial images were obtained through the abdomen and pelvis after the administration of intravenous contrast. All CT scans use one or more of the following dose optimizing techniques: automated exposure control, MA and/or KvP adjustment based on a patient size and exam type, or iterative reconstruction. HISTORY: Colon cancer. COMPARISON: 03/03/2019 FINDINGS: Limited views of the lower thorax show a few tiny pulmonary nodules which are unchanged. The liver is normal without focal lesion. There is no biliary ductal dilation. Gallbladder is normal. Pancreas is normal. Spleen is normal. Adrenal glands are normal. Cyst is seen in the right kidney. Nonobstructing stone is seen in the right kidney. No suspicious renal lesions. There is no hydronephrosis. Urinary bladder is normal. Fiducial markers are present in the prostate. Visualized bowel is normal in caliber without obstruction or inflammation. No free fluid or air. No abdominal or pelvic lymphadenopathy. Aorta is normal in caliber without aneurysm. There are no suspicious osseous lesions. IMPRESSION: 1. No metastatic disease seen in the abdomen or pelvis. Dictated by: Dictated on workstation # [id number]
== END ==
LOC: RAD 12:15
PROVIDERS: ATTEND Nurse Practitioner Adult Health
DX: Z01.89 Encounter for other specified special examinations (principal); C18.2 Malignant neoplasm of ascending colon
CPT/HCPCS: 74178

== ENCOUNTER 2020-03-02 12:54 | Outpatient (RCR) | payer MEDICARE ==
[2020-02-26 10:13] LABS: BASOPHILS % (AUTO) 0 % (0-10); EOSINOPHILS # (AUTO) 0.1 10^3/uL (0.0-0.3); EOSINOPHILS % (AUTO) 2 % (0-10); HEMATOCRIT 41 % (40-54); HEMOGLOBIN 13.6 g/dL (13.3-17.7); LYMPHOCYTES # (AUTO) 0.8 10^3/uL (1.0-4.0); LYMPHOCYTES % (AUTO) 15 % (12-44); MEAN CORPUSCULAR HEMOGLOBIN 34 pg (25-34); MEAN CORPUSCULAR HGB CONC 33 g/dL (32-36); MEAN CORPUSCULAR VOLUME 102 fL (80-99); MEAN PLATELET VOLUME 8.9 fL (9.0-12.2); MONOCYTES # (AUTO) 0.5 10^3/uL (0.0-1.0); MONOCYTES % (AUTO) 10 % (0-12); NEUTROPHILS # (AUTO) 3.7 10^3/uL (1.8-7.8); NEUTROPHILS % (AUTO) 73 % (42-75); PLATELET COUNT 118 10^3/uL (130-400); WHITE BLOOD COUNT 5.1 10^3/uL (4.3-11.0)
[2020-02-26 10:29] LABS: ALBUMIN 3.9 GM/DL (3.2-4.5); BILIRUBIN,TOTAL 0.6 MG/DL (0.1-1.0); CALCIUM 8.6 MG/DL (8.5-10.1); CREATININE SERUM 1.39 MG/DL (0.60-1.30); POTASSIUM 4.7 MMOL/L (3.6-5.0); TOTAL PROTEIN 6.8 GM/DL (6.4-8.2)
[~2020-03-02 12:54] MED LIST changes: -HOLD METFORMIN - RECEIVED CONTRAST 20 ML VIAL IV SCH; -IOHEXOL 350 MG/ML 100 ML (OMNIPAQUE 350) VIAL IV ONE; -LISI-556 PO; +LISI-729 PO; -LISI10TA2 PO; +LISI10TA25 PO; -NS 100 ML (IVPB) BAG IV ONE
== END 2020-05-25 11:54 | disposition home or self-care (01) ==
LOC: ONC 12:54
PROVIDERS: ATTEND Internal Medicine Hematology & Oncology
DX: Z45.2 Encounter for adjustment and management of vascular access device (principal); C18.2 Malignant neoplasm of ascending colon; Z87.891 Personal history of nicotine dependence; Z79.899 Other long term (current) drug therapy; Z90.49 Acquired absence of other specified parts of digestive tract; Z98.890 Other specified postprocedural states; Z92.21 Personal history of antineoplastic chemotherapy
CPT/HCPCS: 36591; 80053; 82378; 85025

== ENCOUNTER → 2020-06-01 | Outpatient (CLI) | payer MEDICARE ==
[2020-06-01 13:32] LABS: POTASSIUM 4.5 MMOL/L (3.6-5.0)
[2020-06-01 13:33] LABS: ALBUMIN 3.8 GM/DL (3.2-4.5); BILIRUBIN,TOTAL 0.7 MG/DL (0.1-1.0); CALCIUM 8.6 MG/DL (8.5-10.1); CREATININE SERUM 1.37 MG/DL (0.60-1.30); TOTAL PROTEIN 6.9 GM/DL (6.4-8.2)
== END ==
LOC: LAB 13:10
PROVIDERS: ATTEND Internal Medicine Cardiovascular Disease
DX: I25.10 Atherosclerotic heart disease of native coronary artery without angina pectoris (principal); I10 Essential (primary) hypertension; E78.2 Mixed hyperlipidemia
CPT/HCPCS: 36415; 80053; 80061

== ENCOUNTER 2020-08-26 09:39 | Outpatient (RCR) | payer MEDICARE ==
[2020-06-01 13:11] LABS: BASOPHILS % (AUTO) 0 % (0-10); EOSINOPHILS # (AUTO) 0.1 10^3/uL (0.0-0.3); EOSINOPHILS % (AUTO) 3 % (0-10); HEMATOCRIT 41 % (40-54); HEMOGLOBIN 13.7 g/dL (13.3-17.7); LYMPHOCYTES # (AUTO) 0.8 10^3/uL (1.0-4.0); LYMPHOCYTES % (AUTO) 16 % (12-44); MEAN CORPUSCULAR HEMOGLOBIN 34 pg (25-34); MEAN CORPUSCULAR HGB CONC 34 g/dL (32-36); MEAN CORPUSCULAR VOLUME 100 fL (80-99); MEAN PLATELET VOLUME 8.9 fL (9.0-12.2); MONOCYTES # (AUTO) 0.4 10^3/uL (0.0-1.0); MONOCYTES % (AUTO) 9 % (0-12); NEUTROPHILS # (AUTO) 3.6 10^3/uL (1.8-7.8); NEUTROPHILS % (AUTO) 72 % (42-75); PLATELET COUNT 139 10^3/uL (130-400)
[2020-06-01 13:27] LABS: ALBUMIN 3.8 GM/DL (3.2-4.5); BILIRUBIN,TOTAL 0.7 MG/DL (0.1-1.0); CALCIUM 8.6 MG/DL (8.5-10.1); CREATININE SERUM 1.37 MG/DL (0.60-1.30); POTASSIUM 4.5 MMOL/L (3.6-5.0); TOTAL PROTEIN 6.9 GM/DL (6.4-8.2)
[~2020-08-26 09:39] MED LIST changes: -HOLD METFORMIN - RECEIVED CONTRAST 20 ML VIAL IV SCH
[2020-08-26 10:11] LABS: EOSINOPHILS # (AUTO) 0.1 10^3/uL (0.0-0.3); EOSINOPHILS % (AUTO) 3 % (0-10); HEMATOCRIT 40 % (40-54); HEMOGLOBIN 13.6 g/dL (13.3-17.7); MEAN CORPUSCULAR HEMOGLOBIN 34 pg (25-34); MEAN CORPUSCULAR HGB CONC 34 g/dL (32-36); MEAN CORPUSCULAR VOLUME 101 fL (80-99)
[2020-08-26 10:12] LABS: BASOPHILS % (AUTO) 1 % (0-10); LYMPHOCYTES # (AUTO) 0.8 10^3/uL (1.0-4.0); LYMPHOCYTES % (AUTO) 16 % (12-44); MONOCYTES # (AUTO) 0.6 10^3/uL (0.0-1.0); MONOCYTES % (AUTO) 11 % (0-12); NEUTROPHILS # (AUTO) 3.3 10^3/uL (1.8-7.8); NEUTROPHILS % (AUTO) 69 % (42-75); PLATELET COUNT 139 10^3/uL (130-400); WHITE BLOOD COUNT 4.8 10^3/uL (4.3-11.0)
[2020-08-26 10:27] LABS: ALBUMIN 3.7 GM/DL (3.2-4.5); BILIRUBIN,TOTAL 0.5 MG/DL (0.1-1.0); CALCIUM 8.3 MG/DL (8.5-10.1); CREATININE SERUM 1.34 MG/DL (0.60-1.30); POTASSIUM 4.5 MMOL/L (3.6-5.0); TOTAL PROTEIN 6.8 GM/DL (6.4-8.2)
== END 2020-08-30 | disposition home or self-care (01) ==
LOC: ONC 09:39
PROVIDERS: ATTEND Internal Medicine Hematology & Oncology
DX: Z45.2 Encounter for adjustment and management of vascular access device (principal); C18.2 Malignant neoplasm of ascending colon; Z87.891 Personal history of nicotine dependence; Z79.899 Other long term (current) drug therapy; Z90.49 Acquired absence of other specified parts of digestive tract; Z98.890 Other specified postprocedural states; Z92.21 Personal history of antineoplastic chemotherapy
CPT/HCPCS: 80053; 82378; 85025; G0463; 36591

== ENCOUNTER → 2020-08-26 | Outpatient (CLI) | payer MEDICARE ==
[~2020-08-26] MED LIST changes: +HOLD METFORMIN - RECEIVED CONTRAST 20 ML VIAL IV SCH
[2020-08-26] MEDS: IOHEXOL 350 MG/ML 100 ML (OMNIPAQUE 350) VIAL IV ONE (11:36)
[2020-08-26] MEDS: NS 100 ML (IVPB) BAG IV ONE (11:36)
--- NOTE | 2020-08-26 12:01 | Diagnostic Imaging Report ---
EXAMINATION: CT chest with intravenous contrast, CT abdomen and pelvis without and with intravenous contrast. TECHNIQUE: Pre and post intravenous contrast axial imaging of the abdomen and pelvis and post contrast axial imaging of the chest were performed. All CT scans use one or more of the following dose optimizing techniques: automated exposure control, MA and/or KvP adjustment based on patient size and exam type or iterative reconstruction. HISTORY: MALIGNANT NEOPLASM OF ASCENDING COLON COMPARISON: CT abdomen pelvis 02/26/2020, CT chest 10/31/2019 FINDINGS: Thyroid: The thyroid is normal. Mediastinum: Heart size is normal without significant pericardial effusion. Calcifications of the aorta and coronary vessels. Thoracic aorta is normal in caliber. There are multiple surgical clips in the mediastinum. A right-sided port catheter is present. No suspicious lymphadenopathy. Lungs and airways: The lungs are clear without consolidation, pleural effusion, or pneumothorax. Atelectasis or scarring within the lung bases. There are a few scattered calcified granulomas. Stable 0.4 cm nodule along the left major fissure. No new suspicious pulmonary nodule. The airways are normal. Solid organs: The liver is normal without focal lesion. The gallbladder is normal. There is no biliary ductal dilation. Pancreas is normal. Spleen is normal. Adrenal glands are normal. There is mild bilateral renal atrophy. A right renal cyst is present and requires no follow-up. There is a nonobstructing 0.4 cm right renal calculus. No hydronephrosis. Bowel: The stomach and small bowel are normal without obstruction. The colon is unremarkable. No findings of acute appendicitis. Peritoneum: There is no intraperitoneal free fluid or free air. No suspicious lymphadenopathy. Vasculature: Calcification of the aorta without aneurysm. Musculoskeletal: Surgical changes from median sternotomy and CABG. Multilevel degenerative changes of spine without suspicious osseous lesion or compression fracture. Pelvis: The prostate gland is normal. There are a few metallic markers within the prostate gland. There is mild bladder wall thickening. IMPRESSION: 1. No new findings of metastatic disease within the chest, abdomen or pelvis. 2. Stable 0.4 cm left lower lobe pulmonary nodule. 3. Mild bladder wall thickening. Recommend correlation with urinalysis. Dictated by: Dictated on workstation # [id number]
== END ==
LOC: RAD 11:15
PROVIDERS: ATTEND Nurse Practitioner Adult Health
DX: C18.2 Malignant neoplasm of ascending colon (principal); R91.1 Solitary pulmonary nodule; N32.89 Other specified disorders of bladder
CPT/HCPCS: 71260; 74178

== ENCOUNTER 2020-08-31 12:30 | Outpatient (RCR) | payer MEDICARE | END 2020-11-26 12:40 | disposition home or self-care (01) | LOC: ONC 12:30 | PROVIDERS: ATTEND Internal Medicine Hematology & Oncology | DX: C18.2 Malignant neoplasm of ascending colon (principal); I25.10 Atherosclerotic heart disease of native coronary artery without angina pectoris; I10 Essential (primary) hypertension; D50.9 Iron deficiency anemia, unspecified; E66.01 Morbid (severe) obesity due to excess calories; E78.2 Mixed hyperlipidemia; I11.0 Hypertensive heart disease with heart failure; I50.20 Unspecified systolic (congestive) heart failure; Z90.49 Acquired absence of other specified parts of digestive tract; Z79.899 Other long term (current) drug therapy; Z98.890 Other specified postprocedural states; Z92.21 Personal history of antineoplastic chemotherapy | CPT/HCPCS: 99213 ==

== ENCOUNTER → 2020-09-07 | Outpatient (CLI) | payer MEDICARE | LOC: CARD 11:53 | PROVIDERS: ATTEND Physician Assistant | DX: I11.9 Hypertensive heart disease without heart failure (principal); I08.0 Rheumatic disorders of both mitral and aortic valves | CPT/HCPCS: 93306 ==

== ENCOUNTER 2021-02-22 13:49 | Outpatient (RCR) | payer MEDICARE ==
[2020-11-30 13:17] LABS: BASOPHILS % (AUTO) 1 % (0-10); EOSINOPHILS # (AUTO) 0.1 10^3/uL (0.0-0.3); HEMOGLOBIN 14.1 g/dL (13.3-17.7); MEAN CORPUSCULAR VOLUME 103 fL (80-99)
[2020-11-30 13:19] LABS: EOSINOPHILS % (AUTO) 3 % (0-10); HEMATOCRIT 42 % (40-54); LYMPHOCYTES # (AUTO) 0.9 10^3/uL (1.0-4.0); LYMPHOCYTES % (AUTO) 17 % (12-44); MEAN CORPUSCULAR HEMOGLOBIN 35 pg (25-34); MEAN CORPUSCULAR HGB CONC 34 g/dL (32-36); MEAN PLATELET VOLUME 8.7 fL (9.0-12.2); MONOCYTES # (AUTO) 0.6 10^3/uL (0.0-1.0); MONOCYTES % (AUTO) 11 % (0-12); NEUTROPHILS # (AUTO) 3.6 10^3/uL (1.8-7.8); NEUTROPHILS % (AUTO) 68 % (42-75); PLATELET COUNT 131 10^3/uL (130-400); WHITE BLOOD COUNT 5.3 10^3/uL (4.3-11.0)
[2020-11-30 13:38] LABS: ALBUMIN 3.8 GM/DL (3.2-4.5); BILIRUBIN,TOTAL 0.6 MG/DL (0.1-1.0); CALCIUM 8.9 MG/DL (8.5-10.1); CREATININE SERUM 1.26 MG/DL (0.60-1.30); POTASSIUM 4.4 MMOL/L (3.6-5.0)
[~2021-02-22 13:49] MED LIST changes: -LISI-729 PO; +LISI5TAB20 PO
== END 2021-02-28 | disposition home or self-care (01) ==
LOC: ONC 13:49
PROVIDERS: ATTEND Internal Medicine Hematology & Oncology
DX: C18.2 Malignant neoplasm of ascending colon (principal); I10 Essential (primary) hypertension; E78.2 Mixed hyperlipidemia; E66.01 Morbid (severe) obesity due to excess calories; F17.200 Nicotine dependence, unspecified, uncomplicated; Z92.21 Personal history of antineoplastic chemotherapy
CPT/HCPCS: 80053; 82378; 85025; G0463; 36591; 96523

== ENCOUNTER → 2021-02-25 | Outpatient (CLI) | payer MEDICARE ==
[~2021-02-25] MED LIST changes: +BARIUM SUSPENSION 2.1% (VANILLA SILQ) 450 ML PO ONE; +CATHETER FLUSH 10 ML SYR IV PRN; +HOLD METFORMIN - RECEIVED CONTRAST 20 ML VIAL IV SCH; +IOHEXOL 350 MG/ML 100 ML (OMNIPAQUE 350) VIAL IV ONE; +LISI-729 PO; -LISI5TAB20 PO; +NS 100 ML (IVPB) BAG IV ONE
[2021-02-25 09:57] LABS: BASOPHILS % (AUTO) 1 % (0-10); EOSINOPHILS % (AUTO) 4 % (0-10); HEMATOCRIT 41 % (40-54); HEMOGLOBIN 13.9 g/dL (13.3-17.7); LYMPHOCYTES % (AUTO) 17 % (12-44); MEAN CORPUSCULAR HEMOGLOBIN 34 pg (25-34); MEAN CORPUSCULAR HGB CONC 34 g/dL (32-36); MEAN CORPUSCULAR VOLUME 101 fL (80-99); MEAN PLATELET VOLUME 8.6 fL (9.0-12.2); MONOCYTES % (AUTO) 12 % (0-12); NEUTROPHILS % (AUTO) 67 % (42-75); PLATELET COUNT 137 10^3/uL (130-400); WHITE BLOOD COUNT 4.1 10^3/uL (4.3-11.0)
[2021-02-25 09:58] LABS: EOSINOPHILS # (AUTO) 0.2 10^3/uL (0.0-0.3); LYMPHOCYTES # (AUTO) 0.7 X 10^3 (1.0-4.0); MONOCYTES # (AUTO) 0.5 X 10^3 (0.0-1.0); NEUTROPHILS # (AUTO) 2.8 X 10^3 (1.8-7.8)
[2021-02-25 10:12] LABS: BILIRUBIN,TOTAL 0.5 MG/DL (0.1-1.0); CALCIUM 8.8 MG/DL (8.5-10.1); CREATININE SERUM 1.33 MG/DL (0.60-1.30); POTASSIUM 4.7 MMOL/L (3.6-5.0)
[2021-02-25 10:13] LABS: TOTAL PROTEIN 6.8 GM/DL (6.4-8.2)
--- NOTE | 2021-02-25 12:20 | Diagnostic Imaging Report ---
PROCEDURE: CT chest with contrast, CT abdomen and pelvis with and without contrast. TECHNIQUE: Pre and post intravenous contrast axial imaging of the abdomen and pelvis and post contrast axial imaging of the chest were performed. Auto Exposure Controls were utilized during the CT exam to meet ALARA standards for radiation dose reduction. INDICATION: Colon cancer. Follow-up. No new symptoms. COMPARISON: 08/26/2020. CT chest: The heart size is within normal limits. No pericardial effusion is present. Post-CABG changes are noted. A right PICC is seen with the tip in the low SVC. Somewhat prominent and irregular lymph node is seen in the left axilla measuring 1.0 cm in short axis. There is no mediastinal or hilar lymphadenopathy. There has been interval calcification of a nodule in the right lower lobe. Additional previously noted calcified granulomas are seen. Stable noncalcified nodule is seen in the left lung base measuring 0.4 cm. No new suspicious pulmonary nodules are identified. Dependent atelectasis is seen in the lung bases. There are no focal areas of consolidation. No pneumothoraces are present. No central endobronchial obstructing lesions are identified. There are no pleural effusions. The osseous structures demonstrate degenerative changes without focal lytic or blastic lesions. CT abdomen and pelvis: Simple cortical cyst is in the superior pole of the right kidney. No evidence of hydronephrosis. No solid renal mass. The urinary bladder is nondistended with concentric bladder wall thickening. The liver, spleen, pancreas, and adrenal glands have a normal appearance. There is no pathologically enlarged mesenteric or retroperitoneal adenopathy. The bowel loops are nondilated. The appendix is visualized in the right hemiabdomen and has a normal appearance. There is no free fluid or free air. The osseous structures are age-appropriate. There is calcified aortic and iliac atherosclerotic plaque without aneurysm. There is no free air, loculated collection, or adenopathy in the pelvis. IMPRESSION: 1. Mildly prominent left axillary lymph node measuring 1.0 cm in short axis. Recommend continued attention on follow-up. PET/CT could also be considered to evaluate for hypermetabolic activity. 2. Stable nodule in the left lower lobe measuring 0.4 cm. Additional scattered benign calcified granulomas are noted. No new suspicious pulmonary nodules. 3. No new evidence of metastatic disease in the abdomen and pelvis. Dictated by: Dictated on workstation # [id number]
== END ==
LOC: LAB FS 09:07
PROVIDERS: ATTEND Nurse Practitioner Adult Health
DX: C18.2 Malignant neoplasm of ascending colon (principal); D64.9 Anemia, unspecified; R91.8 Other nonspecific abnormal finding of lung field
CPT/HCPCS: 36415; 71260; 74178; 80053; 82378; 82728; 85025

== ENCOUNTER 2021-03-11 13:13 | Outpatient (RCR) | payer MEDICARE ==
[~2021-03-11 13:13] MED LIST changes: -BARIUM SUSPENSION 2.1% (VANILLA SILQ) 450 ML PO ONE; -CATHETER FLUSH 10 ML SYR IV PRN; -HOLD METFORMIN - RECEIVED CONTRAST 20 ML VIAL IV SCH; -IOHEXOL 350 MG/ML 100 ML (OMNIPAQUE 350) VIAL IV ONE; -LISI-729 PO; +LISI5TAB20 PO; -NS 100 ML (IVPB) BAG IV ONE
[2021-03-11 13:31] LABS: BASOPHILS % (AUTO) 0 % (0-10); HEMATOCRIT 41 % (40-54); MEAN CORPUSCULAR VOLUME 102 fL (80-99)
[2021-03-11 13:33] LABS: EOSINOPHILS # (AUTO) 0.2 10^3/uL (0.0-0.3); EOSINOPHILS % (AUTO) 4 % (0-10); HEMOGLOBIN 14.1 g/dL (13.3-17.7); LYMPHOCYTES # (AUTO) 0.7 10^3/uL (1.0-4.0); LYMPHOCYTES % (AUTO) 16 % (12-44); MEAN CORPUSCULAR HEMOGLOBIN 35 pg (25-34); MEAN CORPUSCULAR HGB CONC 34 g/dL (32-36); MEAN PLATELET VOLUME 8.7 fL (9.0-12.2); MONOCYTES # (AUTO) 0.5 10^3/uL (0.0-1.0); MONOCYTES % (AUTO) 10 % (0-12); NEUTROPHILS # (AUTO) 3.2 10^3/uL (1.8-7.8); NEUTROPHILS % (AUTO) 70 % (42-75); PLATELET COUNT 132 10^3/uL (130-400); WHITE BLOOD COUNT 4.6 10^3/uL (4.3-11.0)
[2021-03-11 13:56] LABS: ALBUMIN 3.8 GM/DL (3.2-4.5); BILIRUBIN,TOTAL 0.5 MG/DL (0.1-1.0); CALCIUM 8.7 MG/DL (8.5-10.1); CREATININE SERUM 1.29 MG/DL (0.60-1.30); POTASSIUM 4.5 MMOL/L (3.6-5.0); TOTAL PROTEIN 6.5 GM/DL (6.4-8.2)
[2021-04-20] MEDS ORDERED: FURO20TA4 PO (09:08)
[2021-04-20] MEDS ORDERED: LISI20TA26 PO (09:08)
[2021-04-20] MEDS ORDERED: NIAC250T8 PO (09:08)
[2021-04-20] MEDS ORDERED: ASPI-1238 PO (09:08)
[2021-04-20] MEDS ORDERED: VITA400T7 PO (09:10)
== END 2021-04-08 | disposition home or self-care (01) ==
LOC: ONC 13:13
PROVIDERS: ATTEND Internal Medicine Hematology & Oncology
DX: Z45.2 Encounter for adjustment and management of vascular access device (principal); C18.2 Malignant neoplasm of ascending colon; I10 Essential (primary) hypertension; E78.2 Mixed hyperlipidemia; E66.01 Morbid (severe) obesity due to excess calories; F17.200 Nicotine dependence, unspecified, uncomplicated; Z92.21 Personal history of antineoplastic chemotherapy
CPT/HCPCS: 80053; 82378; 85025; G0463; 36591; 99213

== ENCOUNTER 2021-04-20 10:00 | Day surgery (SDC) | payer MEDICARE ==
[~2021-04-20] VITALS: Ht 167.6 cm; Wt 126.6 kg
[2021-04-20] VITALS (11 sets, daily range): BP systolic 100–140; BP diastolic 55–97
--- NOTE | 2021-04-20 08:29 | Diagnostic Imaging Report ---
Indication: Pre-heart catheterization. TIME OF EXAM: 8:26 AM Comparison is made with prior chest from 09/02/2019. Heart size stable. Changes of median sternotomy and CABG are noted. Lungs are clear. No infiltrates are seen. There is no effusion or pneumothorax. Right chest wall port has tip overlying SVC. IMPRESSION: Stable chest. No acute cardiopulmonary process is detected. Dictated by: Dictated on workstation # [id number]
[2021-04-20 08:44] LABS: MEAN PLATELET VOLUME 9.2 fL (9.0-12.2)
[2021-04-20 08:46] LABS: HEMOGLOBIN 13.4 g/dL (13.3-17.7); WHITE BLOOD COUNT 5.1 10^3/uL (4.3-11.0)
[2021-04-20 09:04] LABS: ALANINE AMINOTRANSFERASE 24 U/L (0-55); ALBUMIN 3.6 GM/DL (3.2-4.5); ALKALINE PHOSPHATASE 67 U/L (40-136); BILIRUBIN,TOTAL 0.5 MG/DL (0.1-1.0); BUN/CREATININE RATIO 23; CALCIUM 8.3 MG/DL (8.5-10.1); CARBON DIOXIDE 22 MMOL/L (21-32); CHLORIDE 110 MMOL/L (98-107); CHOLESTEROL 205 MG/DL (< 200); CREATININE SERUM 1.33 MG/DL (0.60-1.30); GFR ESTIMATED 52; GLUCOSE 99 MG/DL (70-105); HDL CHOLESTEROL 24 MG/DL (40-60); POTASSIUM 4.3 MMOL/L (3.6-5.0); SODIUM 143 MMOL/L (135-145); TOTAL PROTEIN 6.7 GM/DL (6.4-8.2); TRIGLYCERIDES 470 MG/DL (<150)
[2021-04-20 09:27] LABS: INR 1.2 (0.8-1.4); PROTHROMBIN TIME PATIENT 15.4 SEC (12.2-14.7)
[2021-04-20 09:43] LABS: PARTIAL THROMBOPLASTIN TIME > 200 SEC (24-35)
[~2021-04-20 10:00] MED LIST changes: +ASPI-1238 PO; +HEParin (CATH LAB) 2,000 ML IV ONE; +LIDOCAINE 1% INJ 20 ML VIAL ONE; +LISI20TA26 PO; +NIAC250T8 PO; +NS IV 1000 ML 1,000 ML IV SCH; +NS IV 1000 ML 1,000 ML ONE; +VITA400T7 PO
[2021-04-20] MEDS ORDERED: MIDAZOLAM 5 MG/5 ML (VERSED) VIAL ONE (10:56)
[2021-04-20] MEDS ORDERED: fentaNYL INJ 100 MCG/2 ML AMP ONE (10:56)
--- NOTE | 2021-04-20 11:48 | Conscious Sedation/ASA ---
Conscious Sedation Pre-Proced Time 11:48 ASA Score 3 For ASA 3 and 4: Consider anesthesia and medical clearance. Also, for patients with a history of failed moderate sedation consider anesthesia. Airway Lungs Heart ASA score ASA 1: a normal healthy patient ASA 2: a patient with a mild systemic disease (mid diabetes, controlled hypertension, obesity x ASA 3: a patient with a severe systemic disease that limits activity (angina, COPD, prior Myocardial infarction) ASA 4: a patient with an incapacitating disease that is a constant threat to life (CHF, renal failure) ASA 5: a moribund patient not expected to survive 24 hrs. (ruptured aneurysm) ASA 6: a declared brain- patient whose organs are being harvested. For emergent operations, add the letter E after the classification Mallampati Classification Grade 3 Sedation Plan Analgesia, Amnesia, Plan communicated to team members, Discussed options with patient/fam, Discussed risks with patient/fam The patient is an appropriate candidate to undergo the planned procedure, sedation, and anesthesia. The patient immediately re-assessed prior to indication. BARTOLO BEDOYA MD Apr 20, 2021 11:48
--- NOTE | 2021-04-20 11:50 | Discharge Inst-Post CATH ---
Discharge Inst-CATH/EP Problems Reviewed?: Yes Post Cardiac Cath/EP D/C Inst Follow Up/Plan Appointment with Dr. Randall's office in 2 to 4 weeks <b>CARDIAC CATH/EP PROCEDURE DISCHARGE INSTRUCTIONS</b> ACTIVITY * Go Home directly and rest. * Limit activity of the leg (or wrist if it was used) for 7 days including aer obics, swimming, jogging, bicycling, etc. * Restrict stair-climbing for 7 days if possible, if not, climb up with your non-cath leg, then bring together on the same step. * Avoid lifting, pushing, pulling or excessive movement of the affected extremi ty for 7 days. * Customary sexual activity may be resumed after 2 days-use caution not to use a position that strains or causes pain to the affected extremity. * No driving for 24 hours. * NO SMOKING. * Avoid straining for bowel movements for 7 days. * Gentle walking on level ground is allowed. * Returning to work will depend on the type of procedure and the results. Your doctor will discuss this with you. CALL YOUR DOCTOR FOR ANY OF THE FOLLOWING: *If bleeding from the puncture site occurs- Apply gentle pressure to site with clean cloth and call your doctor or EMS. * If a knot or lump forms under the skin, increases in size, or causes pain. * If bruising appears to be worsening or moving further down your leg instead of disappearing. * Temperature above 101 F. CARE OF YOUR GROIN INCISION; * Bruising or purple discoloration of the skin near the puncture site is common. * You may shower only, no bathtub bathing for 5 days. Be careful to avoid slipping as your leg may feel stiff. * If a closure device was used on your femoral artery, please see the attached guide regarding care of the device and your leg. * Leave dressing on FOR 24 hours. CARE OF YOUR WRIST INCISION; * Bruising or purple discoloration of the skin near the puncture site is common. * You may shower. * DO NOT submerge wrist. * Leave dressing on FOR 24 hours. BARTOLO RANDALL MD Apr 20, 2021 11:50
[2021-04-20] MEDS ORDERED: PATIENT MAY USE OWN MEDS, ALL PO SCH (12:00)
[2021-04-20] MEDS ORDERED: NS IV 1000 ML 1,000 ML IV SCH (12:00)
--- NOTE | 2021-04-20 12:06 | Cardiac Cath Report ---
Cardiac Cath Report Physician (s)/Radiographer Cardiac Catheterization (s) Physician BARTOLO BEDOYA MD Pre-Procedure Diagnosis Pre-Procedure Diagnosis: Coronary artery disease Post-Procedure Note Procedure Start Date: Apr 20, 2021 Name of Procedure: Left heart catheterization Vein graft angiogram GRAYSON angiogram Findings/Procedure Note PROCEDURE NOTE: 80 years old gentleman with history of coronary artery disease, CABG, has severe mitral regurgitation, scheduled for possible mitral clip. He was referred for coronary angiogram prior to the procedure. After explaining the procedure to the patient, all pros and cons were explained, all questions were answered. The patient signed the consent and then he was placed on the cardiac catheterization laboratory. Groin was prepped SL fashion local anesthesia was used. Sheath placed in the right femoral artery. Taqueria right and left catheter were used to access the coronary system.Vein Graft evaluated. GRAYSON evaluated. Pigtail was used to access the left ventricular cavity. Left ventriculogram was not done, pressure was measured Aortic arch angiogram was not done At the end of the procedure the sheath was removed. Closure device was deployed FINDINGS: Hemodynamics LV 110/17, end-diastolic pressure of 17 Aorta 123/62 mean of 88 ANATOMY: Left Main is free of obstructive disease Left Anterior Descending has moderate stenosis proximally total occlusion of the midportion, GRAYSON to LAD is patent with good flow distally Left Circumflex is totally occluded at the ostium, vein graft to the obtuse marginal branch is patent with good flow distally Right Coronary Artery is totally occluded proximally and the vein graft to the right coronary artery is patent GRAYSON to LAD is patent with good flow distally Vein Graft evaluation showed 3 vein grafts Vein graft to the right coronary artery and vein graft to the diagonal arteries are both occluded and has been occluded since 2018 Vein graft to the obtuse marginal branch is patent with good flow distally LV Gram was not done, pressure was measured CONCLUSION: 1. Severe [place] coronary artery disease with occluded at the mid LAD with pa tent GRAYSON to LAD with good flow distally 2. Total occlusion of ostial circumflex artery with patent vein graft to the obtuse marginal branch with good flow distally 3. Total occlusion of the right coronary artery and the vein graft to the right coronary artery 4. Total occlusion of the vein graft to the diagonal branch 5. Normal left ventricular end-diastolic pressure DISCUSSION AND RECOMMENDATION: Medical therapy is recommended no intervention is needed. Patient is referred for possible mitral valve clip Anesthesia Type: Conscious Sedation Estimated blood loss (mL): 25 ml Contrast Amount: 84 ml Total Radiation Dose: 1190 mGy Post-Procedure Diagnosis Post-operative diagnosis: Coronary artery disease Hypertension Hyperlipidemia Mitral regurgitation BARTOLO BEDOYA MD Apr 20, 2021 12:06
== END 2021-04-20 16:40 | disposition home or self-care (01) ==
LOC: CATH 10:00 → SDC 12:12 → CATH 16:40
PROVIDERS: ATTEND Internal Medicine Cardiovascular Disease
DX: I25.10 Atherosclerotic heart disease of native coronary artery without angina pectoris (principal); E78.2 Mixed hyperlipidemia; I11.0 Hypertensive heart disease with heart failure; I50.22 Chronic systolic (congestive) heart failure; I25.5 Ischemic cardiomyopathy; I08.0 Rheumatic disorders of both mitral and aortic valves; J44.9 Chronic obstructive pulmonary disease, unspecified; G47.33 Obstructive sleep apnea (adult) (pediatric); I65.29 Occlusion and stenosis of unspecified carotid artery; M19.90 Unspecified osteoarthritis, unspecified site; K21.9 Gastro-esophageal reflux disease without esophagitis; Z85.038 Personal history of other malignant neoplasm of large intestine; Z95.1 Presence of aortocoronary bypass graft; Z87.891 Personal history of nicotine dependence; Z79.899 Other long term (current) drug therapy
CPT/HCPCS: 71045; 80053; 80061; 85027; 85610; 85730; 87081; 93459; C1760; C1894; 36415

== ENCOUNTER 2021-06-16 18:50 | Emergency (ER) | payer MEDICARE ==
[~2021-06-16] VITALS: Ht 165 cm; Wt 122.0 kg
[~2021-06-16 18:50] MED LIST changes: -HEParin (CATH LAB) 2,000 ML IV ONE; -LIDOCAINE 1% INJ 20 ML VIAL ONE; -NS IV 1000 ML 1,000 ML IV SCH; -NS IV 1000 ML 1,000 ML ONE
--- NOTE | 2021-06-16 19:21 | ED General ---
General Chief Complaint: Post OP Complications/Pain Stated Complaint: POST OP, GROIN BLEED Source of Information: Patient Exam Limitations: No Limitations History of Present Illness Date Seen by Provider: Jun 16, 2021 Time Seen by Provider: 19:06 Initial Comments Patient to the ER by private conveyance with his significant other and chief complaint that this evening he started having some increased bleeding from the site of his right groin where he had a intravascular mitral valve repair by Dr. Morris a few days ago at cardiothoracic surgery and [place], [place]. He has not spoke to them yet. He had already taken the original surgical dressing off but replaced it with a clean gauze dressing. He is not having any numbness weakness or coolness to touch in his lower extremities. He is not having any chest pain or pain in his groin. He is not having a pulsating feeling. He is on aspirin but no blood thinners. Allergies and Home Medications Allergies Coded Allergies: Umimyzj-Edj-Bwt Reductase Inhibitor (Verified Allergy, Severe, ELEVATED LIVER ENZYMES, 11/25/18) ketorolac (Verified Allergy, Intermediate, 11/25/18) hallucinations amoxicillin (Verified Allergy, Mild, ITCHING/RASH/GI UPSET, 11/25/18) felodipine (Verified Allergy, Mild, HAND SWELLING, 11/25/18) Patient Home Medication List Home Medication List Reviewed: Yes Acetaminophen (Acetaminophen) 500 Mg Tablet, 1,000 MG PO Q6H PRN for PAIN-MILD, (Reported) Entered as Reported by: HENRIQUE VOGT on 09/03/18 1337 Allopurinol (Allopurinol) 100 Mg Tablet, 100 MG PO DAILY, (Reported) Entered as Reported by: HENRIQUE VOGT on 09/03/18 1337 Aspirin (Aspirin EC) 81 Mg Tablet.dr, 81 MG PO DAILY, (Reported) Entered as Reported by: COLLIN SERRA on 04/20/21 0908 Cephalexin (Cephalexin) 500 Mg Tablet, 500 MG PO QID Prescribed by: AMARI DILL on 06/16/211934 Furosemide (Furosemide) 20 Mg Tablet, 20 MG PO DAILY, (Reported) Entered as Reported by: COLLIN SERRA on 04/20/21 09 Lisinopril (Lisinopril) 20 Mg Tablet, 10 MG PO DAILY, (Reported) Entered as Reported by: COLLIN SERRA on 04/20/21 0908 Metoprolol Succinate (Metoprolol Succinate) 50 Mg Tab.er.24h, 25 MG PO DAILY, (Reported) Entered as Reported by: HENRIQUE VOGT on 09/03/18 1337 Niacin (Niacin) 250 Mg Tablet, 250 MG PO DAILY, (Reported) Entered as Reported by: COLLIN SERRA on 04/20/21 0908 [place] 3 Polyunsat Fatty Acids (Fish Oil 1,000 mg Capsule) 1,000 Mg Cap, 1,000 MG PO DAILY, (Reported) Entered as Reported by: HENRIQUE VOGT on 10/21/18 1401 Pantoprazole Sodium (Pantoprazole Sodium) 40 Mg Tablet.dr, 40 MG PO DAILY, (Reported) Entered as Reported by: INGRID GERMAIN on 06/09/19 1132 Vitamin E Acid Succinate (Vitamin E) 268 Mg Tablet, 268 MG PO DAILY, (Reported) Entered as Reported by: COLLIN SERRA on 04/20/21 0910 Review of Systems Review of Systems Constitutional: No chills, No diaphoresis EENTM: No ear discharge, No ear pain Respiratory: No cough, No short of breath Cardiovascular: No chest pain, No edema Gastrointestinal: No abdominal pain, No constipation, No diarrhea Genitourinary: No discharge, No dysuria Musculoskeletal: No back pain, No joint pain Skin: No dryness, No pruritus All Other Systems Reviewed Negative Unless Noted: Yes Past Gdrkvpm-Hfhnpz-Azrjry Hx Patient Social History Tobacco Use?: No Use of E-Cig and/or Vaping dev: No Seasonal Allergies Seasonal Allergies: Yes (MILD) Past Medical History Surgeries: Yes (CARDIAC STENTS, CABG, LEG BX, COLON RESECTION) Tonsillectomy Respiratory: Yes COPD Cardiac: Yes (CABG, STENT) Coronary Artery Disease, High Cholesterol, Hypertension Neurological: No Sexually Transmitted Disease: No HIV/AIDS: No Genitourinary: Yes Prostate Problems, Kidney Stones Gastrointestinal: No Polyps Musculoskeletal: Yes Arthritis, Chronic Back Pain Endocrine: No HEENT: Yes (READING GLASSES) Loss of Vision: Bilateral Hearing Impairment: Denies Cancer: Yes Prostate, Skin, Colon What Type of Treatment Did You: Radiation Psychosocial: No Integumentary: No Blood Disorders: Yes (IRON DEF ANEMIA) Adverse Reaction/Blood Tranf: No (N/A) Physical Exam Vital Signs Vital Signs - First Documented 06/16/21 19:03 Temp 36.6 Pulse 73 Resp 18 B/P (MAP) 154/94 (114) Capillary Refill : Height, Weight, BMI Height: 5'6.00" Weight: 252lbs. 0.0oz. [id number]; 45.06 BMI Method: General Appearance: No Apparent Distress, Obese Eyes: Bilateral Eye Normal Inspection, Bilateral Eye PERRL, Bilateral Eye EOMI HEENT: PERRL/EOMI, Pharynx Normal, Moist Mucous Membranes Neck: Full Range of Motion, Normal Inspection Respiratory: Lungs Clear, Normal Breath Sounds, No Accessory Muscle Use, No Respiratory Distress Cardiovascular: Regular Rate, Rhythm, No Edema Extremity: Normal Capillary Refill, Normal Inspection, Normal Range of Motion, No Pedal Edema Neurologic/Psychiatric: Alert, Oriented x3 Skin: Normal Color, Other (Gauze dressing over a 1 cm open surgical wound in the right groin with some thin serosanguineous drainage. Small to scant amount. No purulence erythema induration or palpable pulsatile mass or seroma.) Progress/Results/Core Measures Suspected Sepsis SIRS Temperature: Pulse: Respiratory Rate: Blood Pressure / Mean: Results/Orders My Orders Orders - AMARI DILL Cbc With Automated Diff (06/16/21 19:14) Basic Metabolic Panel (06/16/21 19:14) Vital Signs/I&O 06/16/21 19:03 Temp 36.6 Pulse 73 Resp 18 B/P (MAP) 154/94 (114) Capillary Refill : Progress Note #1: Time: 19:21 Progress Note CBC and a BMP. Discussed the case with Dr. Venegas who is on-call for cardiothoracic surgery. He says they put a [id number] stitch and take it out the following day. The wounds typically heal from the inside out. He says if it is draining and it looks like seroma fluids then he just needs to keep the dressing on it change daily keep it dry keep it clean so does not get infected. Put him on Keflex or amoxicillin if he starts to demonstrate signs of infection. Will reiterate keeping it clean and dry to the patient and provide him with a prescription for Keflex and instructions to use it at the first sign of infection. Progress Note #2: Time: 20:06 Progress Note Nursing accessed the port but not sure if were in the port all the way because nothing would withdraw so canceled the CBC and BMP as its not necessary after speaking to the surgeon. Departure Impression Primary Impression: Seroma after procedure Disposition: 01 HOME, SELF-CARE Condition: Stable Departure-Patient Inst. Decision time for Depature: 19:46 Referrals: [facility] (PCP) Primary Care Physician ESTELA GALLARDO APRN (Family) Primary Care Physician Patient Instructions: Wound Care (DC) Add. Discharge Instructions: Keep the wound clean with regular soap and water. Dry thoroughly and apply a dressing at least daily or more frequently if it becomes soiled to keep the wound dry. Do not plug the wound with Vaseline or triple antibiotic ointment. Do not use hydrogen peroxide, alcohol, iodine or chlorhexidine as this will delay wound healing. The wound will heal from the inside out. At the first sign of increasing redness around the wound, purulent discharge, fever or significantly increasing pain start taking the Keflex and follow-up with your doctor/surgeon. Keflex 500 mg 4 times a day at the first sign of infection. Scripts Cephalexin (Cephalexin) 500 Mg Tablet 500 MG PO QID for 7 Days, #28 TAB 0 Refills Prov: AMARI DILL 06/16/21 AMARI DILL Jun 16, 2021 19:21
[2021-06-16] MEDS ORDERED: CEPH500T PO (19:35)
[2021-06-16 20:19] VITALS: BP 147/90
== END 2021-06-16 20:21 | disposition home or self-care (01) ==
LOC: EDUNIT# 18:50 → ER 18:51
DX: L76.34 Postprocedural seroma of skin and subcutaneous tissue following other procedure (principal)

== ENCOUNTER 2021-07-04 10:58 | Outpatient (RCR) | payer MEDICARE ==
[~2021-07-04 10:58] MED LIST changes: +CEPH500T PO
== END 2021-07-07 | disposition home or self-care (01) ==
LOC: CR 10:58
PROVIDERS: ATTEND Internal Medicine Cardiovascular Disease
DX: Z29.8 Encounter for other specified prophylactic measures (principal); Z98.890 Other specified postprocedural states; Z86.79 Personal history of other diseases of the circulatory system; Z95.2 Presence of prosthetic heart valve
CPT/HCPCS: 93798

== ENCOUNTER 2021-08-01 15:24 | Emergency (ER) | payer MEDICARE ==
[~2021-08-01] VITALS: Ht 167.7 cm; Wt 122.5 kg
[2021-08-01 15:32] VITALS: BP 140/73
--- NOTE | 2021-08-01 15:50 | ED GU-Male ---
General Stated Complaint: BLOOD IN URINE Source: patient, family Exam Limitations: no limitations History of Present Illness Date Seen by Provider: Aug 01, 2021 Time Seen by Provider: 15:47 Initial Comments Patient is a 81-year-old male who presents ED with hematuria. Patient states he noted bright red blood in his urine today. He had episode this morning as well as a few episodes right after his cardiac rehab. Patient had a clip placed on his mitral valve on June 14 in [place]. He is currently on Plavix. Patient states that they went through the right groin and has had some discomfort there but no severe pain. Denies of any flank pain, abdominal pain ,vomiting, diarrhea, fever. Did noticed some small dark spots in his urine over the past day. Mild cloudiness of his urine with mild burning.. Does urinate frequently but he is on Lasix. History of prostate cancer 2018 with radiation and colon cancer in 2019 with chemotherapy. Patient states he is in remission. Denies chest pain, shortness of breath, cough. Allergies and Home Medications Allergies Coded Allergies: Panrozj-NTN-KkO Reductase Inhibitor (Verified Allergy, Severe, ELEVATED LIVER ENZYMES, 11/25/18) ketorolac (Verified Allergy, Intermediate, 11/25/18) hallucinations amoxicillin (Verified Allergy, Mild, ITCHING/RASH/GI UPSET, 11/25/18) felodipine (Verified Allergy, Mild, HAND SWELLING, 11/25/18) Patient Home Medication List Home Medication List Reviewed: Yes Acetaminophen (Acetaminophen) 500 Mg Tablet, 1,000 MG PO Q6H PRN for PAIN-MILD, (Reported) Entered as Reported by: HENRIQUE VOGT on 09/03/18 1337 Allopurinol (Allopurinol) 100 Mg Tablet, 100 MG PO DAILY, (Reported) Entered as Reported by: HENRIQUE VOGT on 09/03/18 1337 Aspirin (Aspirin EC) 81 Mg Tablet.dr, 81 MG PO DAILY, (Reported) Entered as Reported by: COLLIN SERRA on 04/20/21 0908 Cephalexin (Cephalexin) 500 Mg Tablet, 500 MG PO QID Prescribed by: AMARI DILL on 06/16/21 193 Cephalexin (Cephalexin) 500 Mg Tablet, 500 MG PO BID Prescribed by: SWATHI PEREZ on 08/01/211823 Furosemide (Furosemide) 20 Mg Tablet, 20 MG PO DAILY, (Reported) Entered as Reported by: COLLIN SERRA on 04/20/21 0908 Lisinopril (Lisinopril) 20 Mg Tablet, 10 MG PO DAILY, (Reported) Entered as Reported by: COLLIN SERRA on 04/20/21 0908 Metoprolol Succinate (Metoprolol Succinate) 50 Mg Tab.er.24h, 25 MG PO DAILY, (Reported) Entered as Reported by: HENRIQUE VOGT on 09/03/18 1337 Niacin (Niacin) 250 Mg Tablet, 250 MG PO DAILY, (Reported) Entered as Reported by: COLLIN SERRA on 04/20/21 0908 [place] 3 Polyunsat Fatty Acids (Fish Oil 1,000 mg Capsule) 1,000 Mg Cap, 1,000 MG PO DAILY, (Reported) Entered as Reported by: HENRIQUE VOGT on 10/21/18 1401 Pantoprazole Sodium (Pantoprazole Sodium) 40 Mg Tablet.dr, 40 MG PO DAILY, (R eported) Entered as Reported by: INGRID GERMAIN on 06/09/19 1132 Vitamin E Acid Succinate (Vitamin E) 268 Mg Tablet, 268 MG PO DAILY, (Reported) Entered as Reported by: COLLIN SERRA on 04/20/21 0910 Review of Systems Review of Systems Constitutional: No chills, No diaphoresis, No fever, No malaise, No weakness EENTM: No blurred vision, No double vision, No dental problems, No mouth pain, No mouth swelling Respiratory: No cough, No dyspnea on exertion, No orthopnea, No short of breath Cardiovascular: No chest pain Gastrointestinal: No abdominal pain, No diarrhea, No nausea, No vomiting Genitourinary: denies burning, denies discharge; frequency; denies flank pain; hematuria Musculoskeletal: No back pain, No joint pain, No muscle pain, No muscle stiffness Skin: No change in color, No change in hair/nails Psychiatric/Neurological: Denies Anxiety, Denies Depressed All Other Systemes Reviewed Negative Unless Noted: Yes Past Jmunlqo-Ggakfa-Cvjuse Hx Immunizations Up To Date First/Initial COVID19 Vaccinat: 2020 Second COVID19 Vaccination Yaya: 2020 Seasonal Allergies Seasonal Allergies: Yes (MILD) Past Medical History Surgeries: Yes (CARDIAC STENTS, CABG, LEG BX, COLON RESECTION) Tonsillectomy Respiratory: Yes COPD Cardiac: Yes (CABG, STENT) Coronary Artery Disease, High Cholesterol, Hypertension Neurological: No Sexually Transmitted Disease: No HIV/AIDS: No Genitourinary: Yes Prostate Problems, Kidney Stones Gastrointestinal: No Polyps Musculoskeletal: Yes Arthritis, Chronic Back Pain Endocrine: No HEENT: Yes (READING GLASSES) Loss of Vision: Bilateral Hearing Impairment: Denies Cancer: Yes Prostate, Skin, Colon What Type of Treatment Did You: Radiation Psychosocial: No Integumentary: No Blood Disorders: Yes (IRON DEF ANEMIA) Adverse Reaction/Blood Tranf: No (N/A) Physical Exam Vital Signs Vital Signs - First Documented 08/01/21 15:32 Temp 36.2 Pulse 76 Resp 20 B/P (MAP) 140/73 (95) Pulse Ox 98 O2 Delivery Room Air Capillary Refill : Height, Weight, BMI Height: 5'6.00" Weight: 252lbs. 0.0oz. [id number]; 44.00 BMI Method: General Appearance: WD/WN, no apparent distress HEENT: PERRL/EOMI, normal ENT inspection, TMs normal, pharynx normal Neck: non-tender, full range of motion, supple Cardiovascular: regular rate, rhythm, no edema, no gallop Respiratory: chest non-tender, lungs clear, normal breath sounds Gastrointestinal: normal bowel sounds, non tender, soft, no organomegaly, no pulsatile mass Back: normal inspection, no CVA tenderness, no vertebral tenderness Extremities: normal range of motion, non-tender, normal inspection, no pedal edema Progress/Results/Core Measures Suspected Sepsis SIRS Temperature: Pulse: Respiratory Rate: Laboratory Tests 08/01/21 15:50: White Blood Count 5.9 Blood Pressure / Mean: Laboratory Tests 08/01/21 15:50: Creatinine 1.52H, INR Comment 1.1, Platelet Count 158, Total Bilirubin 0.4 Results/Orders Lab Results Laboratory Tests Test 08/01/21 15:50 08/01/21 16:11 Range/Units White Blood Count 5.9 4.3-11.0 10^3/uL Red Blood Count 3.62 L 4.30-5.52 10^6/uL Hemoglobin 12.3 L 13.3-17.7 g/dL Hematocrit 37 L 40-54 % Mean Corpuscular Volume 103 H 80-99 fL Mean Corpuscular Hemoglobin 34 25-34 pg Mean Corpuscular Hemoglobin Concent 33 32-36 g/dL Red Cell Distribution Width 12.8 10.0-14.5 % Platelet Count 158 130-400 10^3/uL Mean Platelet Volume 8.7 L 9.0-12.2 fL Immature Granulocyte % (Auto) 1 % Neutrophils (%) (Auto) 69 42-75 % Lymphocytes (%) (Auto) 15 12-44 % Monocytes (%) (Auto) 12 0-12 % Eosinophils (%) (Auto) 3 0-10 % Basophils (%) (Auto) 1 0-10 % Neutrophils # (Auto) 4.1 1.8-7.8 10^3/uL Lymphocytes # (Auto) 0.9 L 1.0-4.0 10^3/uL Monocytes # (Auto) 0.7 0.0-1.0 10^3/uL Eosinophils # (Auto) 0.2 0.0-0.3 10^3/uL Basophils # (Auto) 0.0 0.0-0.1 10^3/uL Immature Granulocyte # (Auto) 0.0 0.0-0.1 10^3/uL Percent Immature Platelet Fraction 0.8 0.0-7.6 % Prothrombin Time 14.3 12.2-14.7 SEC INR Comment 1.1 0.8-1.4 Activated Partial Thromboplast Time 32 24-35 SEC Sodium Level 143 135-145 MMOL/L Potassium Level 4.5 3.6-5.0 MMOL/L Chloride Level 109 H 98-107 MMOL/L Carbon Dioxide Level 22 21-32 MMOL/L Anion Gap 12 5-14 MMOL/L Blood Urea Nitrogen 33 H 7-18 MG/DL Creatinine 1.52 H 0.60-1.30 MG/DL Estimat Glomerular Filtration Rate 46 BUN/Creatinine Ratio 22 Glucose Level 93 70-105 MG/DL Calcium Level 8.5 8.5-10.1 MG/DL Corrected Calcium 8.7 8.5-10.1 MG/DL Total Bilirubin 0.4 0.1-1.0 MG/DL Aspartate Amino Transf (AST/SGOT) 16 5-34 U/L Alanine Aminotransferase (ALT/SGPT) 22 0-55 U/L Alkaline Phosphatase 77 40-136 U/L Total Protein 6.7 6.4-8.2 GM/DL Albumin 3.7 3.2-4.5 GM/DL Lipase 35 8-78 U/L Urine Color RED H Urine Clarity CLOUDY Urine pH 6.5 5-9 Urine Specific [place] 1.020 1.016-1.022 Urine Protein 3+ H NEGATIVE Urine Glucose (UA) TRACE H NEGATIVE Urine Ketones 1+ H NEGATIVE Urine Nitrite POSITIVE H NEGATIVE Urine Bilirubin 2+ H NEGATIVE Urine Urobilinogen 4.0 < = 1.0 MG/DL Urine Leukocyte Esterase 2+ H NEGATIVE Urine RBC (Auto) 3+ H NEGATIVE Urine RBC TNTC H /HPF Urine WBC 5-10 H /HPF Urine Squamous Epithelial Cells NONE /HPF Urine Crystals NONE /LPF Urine Bacteria NEGATIVE /HPF Urine Casts NONE /LPF Urine Mucus NEGATIVE /LPF Urine Culture Indicated YES My Orders Orders - SADAF NICHOLS PA Ua Culture If Indicated (08/01/21 15:27) Cbc With Automated Diff (08/01/21 15:46) Comprehensive Metabolic Panel (08/01/21 15:46) Lipase (08/01/21 15:46) Partial Thromboplastin Time (08/01/21 15:46) Protime With Inr (08/01/21 15:46) Ct Abdomen/Pelvis W (08/01/21 15:46) Iohexol Injection (Omnipaque 350 Mg/Ml 1 (08/01/21 16:45) Ns (Ivpb) (Sodium Chloride 0.9% Ivpb Bag (08/01/21 16:45) Urine Culture (08/01/21 16:11) Ceftriaxone 1 Gm Pre-Mix (Rocephin 1 Gm (08/01/21 18:22) Medications Given in ED Current Medications Medications Dose Ordered Sig/Christina Route Start Time Stop Time Status Last Admin Dose Admin Iohexol 100 ml ONCE ONCE IV 08/01/21 16:45 08/01/21 16:46 DC 08/01/21 16:59 100 ML Sodium Chloride 100 ml ONCE ONCE IV 08/01/21 16:45 08/01/21 16:46 DC 08/01/21 16:59 80 ML Vital Signs/I&O 08/01/21 15:32 Temp 36.2 Pulse 76 Resp 20 B/P (MAP) 140/73 (95) Pulse Ox 98 O2 Delivery Room Air Capillary Refill : Departure Communication (PCP) Patient presents ED with hematuria. Reports some mild burning sensation over the past week or so. History of prostate cancer requiring radiation and colon cancer with chemotherapy. Patient hemoglobin 12.3. Currently on anticoagulant. Normal platelets. Normal white blood count. Afebrile. Is not tachycardic. No chest pain, shortness of breath. No abdominal tenderness on palpation. No flank pain. No history of kidney stones. Concerning for the hematuria with his previous history of radiation rule out any obvious mass, metastasis to the bladder. CT scan was negative for any metastasis. Noted inflammation of the bladder likely secondary to cystitis versus chronic outlet obstruction. Has been urinating currently on Lasix. Patient was given dose of Rocephin. Will discharge with Keflex. Recommend follow-up with PCP in 3 to 4 days for reevaluation with urinalysis. Discharge with Keflex. Patient does not appear septic or toxic. Impression Primary Impression: UTI (urinary tract infection) Disposition: HOME, SELF-CARE Condition: Stable Departure-Patient Inst. Decision time for Depature: 18:23 Referrals: [facility] (PCP) Primary Care Physician ESTELA GALLARDO APRN (Family) Primary Care Physician Patient Instructions: Urinary Tract Infection, Adult (DC) Scripts Cephalexin (Cephalexin) 500 Mg Tablet 500 MG PO BID for 7 Days, #14 TAB Prov: SADAF NICHOLS 08/01/21 SADAF NICHOLS Aug 01, 2021 15:50
[2021-08-01 16:10] LABS: BASOPHILS % (AUTO) 1 % (0-10); HEMOGLOBIN 12.3 g/dL (13.3-17.7); LYMPHOCYTES # (AUTO) 0.9 10^3/uL (1.0-4.0); LYMPHOCYTES % (AUTO) 15 % (12-44); MEAN CORPUSCULAR VOLUME 103 fL (80-99)
[2021-08-01 16:12] LABS: EOSINOPHILS # (AUTO) 0.2 10^3/uL (0.0-0.3); EOSINOPHILS % (AUTO) 3 % (0-10); HEMATOCRIT 37 % (40-54); MEAN CORPUSCULAR HEMOGLOBIN 34 pg (25-34); MEAN CORPUSCULAR HGB CONC 33 g/dL (32-36); MEAN PLATELET VOLUME 8.7 fL (9.0-12.2); MONOCYTES # (AUTO) 0.7 10^3/uL (0.0-1.0); MONOCYTES % (AUTO) 12 % (0-12); NEUTROPHILS # (AUTO) 4.1 10^3/uL (1.8-7.8); NEUTROPHILS % (AUTO) 69 % (42-75); PLATELET COUNT 158 10^3/uL (130-400); WHITE BLOOD COUNT 5.9 10^3/uL (4.3-11.0)
[2021-08-01 16:16] LABS: CLARITY,URINE CLOUDY; COLOR,URINE RED; GLUCOSE, URINE (UA) TRACE (NEGATIVE); KETONES,URINE 1+ (NEGATIVE); LEUKOCYTE ESTERASE ,URINE 2+ (NEGATIVE); NITRITE,URINE POSITIVE (NEGATIVE); PH,URINE 6.5 (5-9); PROTEIN,URINE 3+ (NEGATIVE)
[2021-08-01 16:17] LABS: INR 1.1 (0.8-1.4); PROTHROMBIN TIME PATIENT 14.3 SEC (12.2-14.7)
[2021-08-01 16:18] LABS: ALBUMIN 3.7 GM/DL (3.2-4.5); POTASSIUM 4.5 MMOL/L (3.6-5.0)
[2021-08-01 16:19] LABS: CALCIUM 8.5 MG/DL (8.5-10.1)
[2021-08-01 16:21] LABS: TOTAL PROTEIN 6.7 GM/DL (6.4-8.2)
[2021-08-01 16:23] LABS: BILIRUBIN,TOTAL 0.4 MG/DL (0.1-1.0)
[2021-08-01 16:24] LABS: CREATININE SERUM 1.52 MG/DL (0.60-1.30)
[2021-08-01] MEDS ORDERED: IOHEXOL 350 MG/ML 100 ML (OMNIPAQUE 350) VIAL IV ONE (16:45)
[2021-08-01] MEDS ORDERED: NS 100 ML (IVPB) BAG IV ONE (16:45)
[2021-08-01 16:57] LABS: BILIRUBIN,URINE 2+ (NEGATIVE)
[2021-08-01 16:58] LABS: BACTERIA,URINE NEGATIVE /HPF; RBC,URINE TNTC /HPF
--- NOTE | 2021-08-01 17:17 | Diagnostic Imaging Report ---
PROCEDURE: CT abdomen and pelvis with contrast. TECHNIQUE: Multiple contiguous axial images were obtained through the abdomen and pelvis after administration of intravenous contrast. Auto Exposure Controls were utilized during the CT exam to meet ALARA standards for radiation dose reduction. All CT scans use one or more of the following dose optimizing techniques: automated exposure control, MA and/or KvP adjustment based on patient size and exam type or iterative reconstruction. DATE: August 01, 2021. COMPARISON: CT chest, abdomen, and pelvis February 25, 2021. INDICATION: 81-year-old male, blood in urine. History of prostate and colon cancer. FINDINGS: There is mild atelectasis in the imaged lung bases. The heart is not enlarged. There is no pericardial effusion. The liver is unremarkable in size and contour. There is no identified liver lesion. The main, right, and left portal veins are patent. The gallbladder is unremarkable. There is no intrahepatic or extrahepatic bile duct dilation. The main pancreatic duct is not abnormally dilated. There are pancreatic calcifications consistent with chronic pancreatitis. There is no evidence of acute pancreatitis. The spleen is normal in size. The adrenal glands are unremarkable. There is a low-attenuation right renal lesion on axial image 44 measuring 2.4 cm in size. Internal attenuation is diagnostic for a benign cyst. There is a 4 mm nonobstructing right renal stone on axial image 73. There is an exophytic 9 mm right renal lesion on axial image 79 which is too small to characterize. There is a 2 mm nonobstructing left renal stone on axial image 64. There is an additional subcentimeter left renal lesion on axial image 49 which is too small to characterize. The urinary collecting systems are not distended. There is no identified ureteral stone. There is prominent diffuse urinary bladder wall thickening as well as enhancement of the urinary bladder wall. This is very suspicious for cystitis. Chronic outlet obstruction is also a consideration. There are surgical clips in the region of the prostate. The patient is status post partial right colectomy. The intestinal tract is not distended. There is a small fat-containing umbilical hernia. There is no free intraperitoneal air. There is no drainable fluid collection. There is no free fluid in the abdomen or pelvis. There are atherosclerotic calcifications. There is a retroaortic left renal vein. There is no identified abnormally enlarged lymph node in the abdomen or pelvis meeting CT size criteria for adenopathy. There is mild osteoarthritis of both hips. There are multilevel degenerative changes of the spine. There is no identified acute bony abnormality. IMPRESSION: CT ABDOMEN AND PELVIS. 1. Prominent diffuse urinary bladder wall thickening with enhancement of the urinary bladder. While highly suspicious for cystitis, chronic outlet obstruction is also a consideration although this is a new finding since February 25, 2021. 2. No evidence of metastatic disease in the abdomen or pelvis. Dictated by: Dictated on workstation # [id number]
[2021-08-01] MEDS ORDERED: cefTRIAXone 1 GM PRE-MIX 50 ML IV STA (18:22)
[2021-08-01] MEDS ORDERED: CEPH500T PO (18:24)
== END 2021-08-01 19:04 | disposition home or self-care (01) ==
LOC: EDUNIT# 15:24 → ER 15:27
DX: N39.0 Urinary tract infection, site not specified (principal); Z85.46 Personal history of malignant neoplasm of prostate; Z85.038 Personal history of other malignant neoplasm of large intestine; Z90.49 Acquired absence of other specified parts of digestive tract; Z79.02 Long term (current) use of antithrombotics/antiplatelets; Z79.899 Other long term (current) drug therapy
CPT/HCPCS: 36415; 74177; 80053; 81000; 83690; 85025; 85610; 85730; 87077; 87088; 87186

== ENCOUNTER 2021-08-05 10:49 | Outpatient (RCR) | payer MEDICARE | END 2021-08-06 | disposition home or self-care (01) | LOC: CR 10:49 | PROVIDERS: ATTEND Internal Medicine Cardiovascular Disease | DX: Z29.8 Encounter for other specified prophylactic measures (principal); Z98.890 Other specified postprocedural states; Z86.79 Personal history of other diseases of the circulatory system; Z95.2 Presence of prosthetic heart valve | CPT/HCPCS: 93798 ==

== ENCOUNTER 2021-09-02 11:28 | Outpatient (RCR) | payer MEDICARE | END 2021-09-06 | disposition home or self-care (01) | LOC: CR 11:28 | PROVIDERS: ATTEND Internal Medicine Cardiovascular Disease | DX: I50.9 Heart failure, unspecified (principal); Z95.2 Presence of prosthetic heart valve | CPT/HCPCS: 93798 ==

== ENCOUNTER 2022-05-24 05:42 | Outpatient (CLI) | payer MEDICARE ==
[~2022-05-24] VITALS: Ht 167.6 cm; Wt 116.0 kg
[~2022-05-24 05:42] MED LIST changes: +VITA-212 PO; -VITA-272 PO
[2022-05-24] MEDS ORDERED: TIRZ2.5P SQ (10:30)
[2022-05-24] MEDS ORDERED: MULT-593 PO (10:30)
[2022-05-24] MEDS ORDERED: NITR0.4T42 SL (10:30)
[2022-05-24] MEDS ORDERED: DOCU100C37 PO (10:30)
== END 2022-05-24 10:32 | disposition home or self-care (01) ==
LOC: PREOP 05:42
PROVIDERS: ATTEND Surgery
DX: Z01.818 Encounter for other preprocedural examination (principal)

== ENCOUNTER 2022-06-22 09:09 | Day surgery (SDC) | payer MEDICARE ==
[~2022-06-22] VITALS: Ht 167.6 cm; Wt 116.0 kg
[~2022-06-22 09:09] MED LIST changes: +DOCU100C37 PO; +MULT-593 PO; +NITR0.4T42 SL; +TIRZ2.5P SQ
[2022-06-22] MEDS ORDERED: LACTATED RINGERS 1,000 ML IV STA (09:38)
[2022-06-22 09:55] VITALS: BP 112/61
[2022-06-22] MEDS ORDERED: PROPOFOL INJECTION 50 ML IV ONE (09:58)
[2022-06-22] MEDS ORDERED: proPOfol 200 MG/20 ML (DIPRIVAN) VIAL IV ONE (11:15)
[2022-06-22 11:35] VITALS: BP 103/58
--- NOTE | 2022-06-22 11:39 | Progress Note-Post Operative ---
Post-Operative Progess Note Surgeon (s)/Low Pressure Boiler Operator (s) Surgeon LYUDMILA BRUSH DO Low Pressure Boiler Operator: KATRINA MendezII Pre-Operative Diagnosis Hx of colon CA Post-Operative Diagnosis Polyp Diverticula Int hemorrhoids Procedure & Operative Findings Date of Procedure 06/22/22 Procedure Performed/Findings Colonoscopy with cold bx PROCEDURE NOTE: After informed consent was obtained, the patient was brought to the endoscopy suite, placed in bed in left lateral decubitus position. He was administered IV sedation by the AEROBICS INSTRUCTOR who then monitored his vitals the entire time, heart rate, blood pressure and pulse ox and the scope was inserted, pushed all the way to about 150 cm and pushed into the anastomosis, took a picture of the anastom osis; could see colon, small bowel and staple line. Then slowly withdrew the scope insufflating to look circumferentially at the anton starting at anastomosis, then down the transverse colon to the splenic flexure, into the descending colon where I saw large diverticula and took a picture. Throughout here I also saw some AVMs and one possible area of melanosis coli. In the transverse colon I saw a small flat polyp and elected to do a cold biopsy. Continued down into the sigmoid, then into the rectal vault and retroflexed the scope. Took a picture of the internal hemorrhoids. The patient tolerated the procedure. He was recovered in endoscopy suite. Recommended for repeat colonoscopy in 5 years. Anesthesia Type IV sedation by Anesthesia Estimated Blood Loss Estimated blood loss (mL): scant Specimens/Packing Specimens Removed transverse colon polyp LYUDMILA BRUSH DO Jun 22, 2022 11:39
[2022-06-22 11:40] VITALS: BP 101/58
--- NOTE | 2022-06-22 11:40 | Endoscopy Discharge Instruct ---
Endo Procedure/Findings Findings 1.: Polyp 2.: Diverticulosis 3.: Internal Hemorrhoids Discharge Instructions - Activity: You might feel a little sleepy until tomorrow. This is due to the medicine you received to relax you. Until tomorrow, you should: NOT drive a car, operate machinery or power tools. NOT drink any alcoholic beverages. NOT make any important decisions or sign importortant papers. Do not return to work until tomorrow, unless otherwise instructed. Resume previous activities tomorrow. Diet: Start by taking liquids. If you tolerate liquids, advance to solid food. 1.: Colonscopy in 5 years Notify Physician - If you experience excessive bleeding, unusual abdominal pain, fever, or chest pain, contact your doctor immediately. LYUDMILA BRUSH DO Jun 22, 2022 11:39
[2022-06-22 12:12] VITALS: BP 101/58
--- NOTE | 2022-06-22 12:51 | Anesthesia-General Post-Op ---
MAC Patient Condition Mental Status/LOC: Same as Preop Cardiovascular: Satisfactory Nausea/Vomiting: Absent Respiratory: Satisfactory Pain: Controlled Complications: Absent Post Op Complications Complications None Follow Up Care/Instructions Patient Instructions None needed. Anesthesiology Discharge Order Discharge Order Patient is doing well, no complaints, stable vital signs, no apparent adverse anesthesia problems. No complications reported per nursing. CHARIS LAMB 16, 2023 12:51
== END 2022-06-22 12:15 | disposition home or self-care (01) ==
LOC: ENDO 09:09
PROVIDERS: ATTEND Surgery
DX: Z12.11 Encounter for screening for malignant neoplasm of colon (principal); K63.5 Polyp of colon; K57.30 Diverticulosis of large intestine without perforation or abscess without bleeding; E66.9 Obesity, unspecified; Z68.41 Body mass index [BMI] 40.0-44.9, adult; Z85.038 Personal history of other malignant neoplasm of large intestine; Z87.891 Personal history of nicotine dependence
CPT/HCPCS: 88305

== ENCOUNTER → 2022-07-11 | Outpatient (CLI) | payer MEDICARE ==
--- NOTE | 2022-07-11 16:23 | Diagnostic Imaging Report ---
PROCEDURE: MRI lumbar spine. TECHNIQUE: Multiplanar, multisequence MRI of the lumbar spine was performed without contrast. INDICATION: 82-year-old male, low back pain, chronic in nature. TECHNIQUE: Multiplanar and multisequence magnetic resonance imagine was performed of the lumbar spine without contrast. CORRELATION STUDY: None FINDINGS: Trace retrolisthesis of L2 on L3, L3 on L4. Alignment otherwise relatively anatomic. Lumbar vertebral body heights overall are fairly well-maintained. There are multiple Schmorl's node deformities of the lower thoracic as well as the lumbar vertebral bodies. There is a geographic lesion which is predominantly T1 and T2 hyperintense at the posterior L2 vertebral body which suppresses on the fat-suppressed sequences favors a hemangioma. There is mild Modic signal changes at the endplates of L3 and L4L and, to a lesser degree, the L5-S1 which are predominantly hyperintense on T1-T2 with fatty change. Conus terminates at L1-L2 level. There does appear to be some displayed appearance about the nerve roots posterior to the L2 vertebral body. Perhaps owing to displacement from significant spinal canal narrowing at the L2-L3 level. L1-L2: Moderate loss of disc height. Ligamentum and facet hypertrophy with very mild trefoil-type spinal canal narrowing. No high degree foraminal stenosis. L2-L3: Moderate loss of disc space height. There is rather significant ligamentum and facet hypertrophy. This in conjunction with disc osteophyte formation results in at least moderate severity spinal canal narrowing. AP dimension of the canal is narrowed to 5 to 6 mm and there is also at least mild to moderate bilateral foraminal narrowing, right slightly greater than left. L3-L4: Moderate loss of disc space height. Disc osteophyte formation. There is rather significant ligamentum and facet hypertrophy results in moderate spinal canal stenosis. AP dimension narrowed to approximately 5 mm and there is moderate to marked bilateral foraminal narrowing. L4-L5: Mild loss of disc space height. Rather significant disc osteophyte formation results in moderate to marked bilateral foraminal narrowing. Ligamentum and facet hypertrophy results in moderate predominantly lateral spinal canal narrowing. L5-S1: Moderate to marked bilateral foraminal narrowing owing to disc osteophyte formation. No significant canal narrowing. Some generalized thinning and atrophic appearance about the bilateral kidneys which also contain small cysts. IMPRESSION: 1. Rather significant spinal canal and foraminal narrowing within the lumbar spine owing to a combination ligamentum and facet hypertrophy along with degenerative disease and endplate osteophyte formation. Spinal canal stenosis is most severe at L2-L3 and L3-L4 levels. Foraminal narrowing rather pronounced at these areas as well as at the L4-L5 and L5-S1 levels. Dictated by: Dictated on workstation # [id number]
== END ==
LOC: RAD 09:34
PROVIDERS: ATTEND Pain Medicine Interventional Pain Medicine
DX: M47.816 Spondylosis without myelopathy or radiculopathy, lumbar region (principal); M48.061 Spinal stenosis, lumbar region without neurogenic claudication; M25.78 Osteophyte, vertebrae; M48.07 Spinal stenosis, lumbosacral region
CPT/HCPCS: 72148

== ENCOUNTER 2022-12-08 08:23 | Inpatient (IN) | payer MEDICARE ==
[2022-12-08] VITALS (13 sets, daily range): BP systolic 101–157; BP diastolic 64–129
[~2022-12-08] VITALS: Ht 167.9 cm; Wt 116.7 kg
[2022-12-08 09:02] LABS: PROTHROMBIN TIME PATIENT 13.6 SEC (12.2-14.7)
[2022-12-08 09:08] LABS: BILIRUBIN,TOTAL 0.7 MG/DL (0.1-1.0); CALCIUM 8.8 MG/DL (8.5-10.1); CREATININE SERUM 1.81 MG/DL (0.60-1.30); TOTAL PROTEIN 7.5 GM/DL (6.4-8.2)
[2022-12-08 09:32] LABS: BASOPHILS % (AUTO) 0 % (0-10); EOSINOPHILS # (AUTO) 0.2 10^3/uL (0.0-0.3); EOSINOPHILS % (AUTO) 3 % (0-10); HEMATOCRIT 39 % (40-54); HEMOGLOBIN 12.9 g/dL (13.3-17.7); LYMPHOCYTES # (AUTO) 0.6 10^3/uL (1.0-4.0); LYMPHOCYTES % (AUTO) 12 % (12-44); MEAN CORPUSCULAR HEMOGLOBIN 34 pg (25-34); MEAN CORPUSCULAR HGB CONC 33 g/dL (32-36); MEAN CORPUSCULAR VOLUME 103 fL (80-99); MONOCYTES # (AUTO) 0.4 10^3/uL (0.0-1.0); MONOCYTES % (AUTO) 9 % (0-12); NEUTROPHILS # (AUTO) 3.5 10^3/uL (1.8-7.8); NEUTROPHILS % (AUTO) 75 % (42-75); WHITE BLOOD COUNT 4.7 10^3/uL (4.3-11.0)
[2022-12-08 09:38] LABS: PLATELET COUNT 1 10^3/uL (130-400)
--- NOTE | 2022-12-08 09:53 | ED General ---
General Chief Complaint: Abdominal/GI Problems Stated Complaint: BLEEDING INTERNALLY, BLOODY STOOL Source of Information: Patient, Old Records Exam Limitations: No Limitations History of Present Illness Date Seen by Provider: Dec 08, 2022 Time Seen by Provider: 08:35 Initial Comments This 82-year-old gentleman presents to the emergency room via private vehicle with concerns about rectal bleeding that started last night. He had some rectal urgency and then passed some red clots. He has had some mild abdominal discomfort that started this morning as well. The rectal bleeding occurred a gain this morning in the same manner. He has also had some minor oozing of blood from the rectum into a depends. He does not appear to be hemorrhaging at this time. He has history of colon cancer and prostate cancer. He has received chemotherapy and radiation. He is due to have a follow-up appointment with Dr. Goodson along with a PET scan this fall. His surgeon is Dr. Abrams who performed a surveillance colonoscopy on him in June. A polyp was removed. I reviewed the op report and pathology report. The polyp was benign. Internal hemorrhoids were also noted. Vital signs are normal and unremarkable. Patient has had no fever or chills. He has a history of atrial fibrillation but has not been anticoagulated since having an atrial clip placed. He takes only aspirin 81 mg daily and has not taken any aspirin today. His primary care provider is Kezia JUAREZ at [facility] in [place]. Allergies and Home Medications Allergies Coded Allergies: Irbmxjo-UIX-GbQ Reductase Inhibitor (Verified Allergy, Severe, ELEVATED LIVER ENZYMES, 11/25/18) ketorolac (Verified Allergy, Intermediate, 11/25/18) hallucinations amoxicillin (Verified Allergy, Mild, ITCHING/RASH/GI UPSET, 11/25/18) felodipine (Verified Allergy, Mild, HAND SWELLING, 11/25/18) Patient Home Medication List Home Medication List Reviewed: Yes Acetaminophen (Acetaminophen) 500 Mg Tablet, 1,000 MG PO Q6H PRN for PAIN-MILD, (Reported) Entered as Reported by: HENRIQUE VOGT on 09/03/18 8367 Allopurinol (Allopurinol) 100 Mg Tablet, 100 MG PO DAILY, (Reported) Entered as Reported by: HENRIQUE VOGT on 09/03/18 1338 Aspirin (Aspirin EC) 81 Mg Tablet., 81 MG PO DAILY, (Reported) Entered as Reported by: COLLIN SERRA on 04/20/21 0908 Cephalexin (Cephalexin) 500 Mg Tablet, 500 MG PO QID Prescribed by: AMARI DILL on 06/16/21 193 Cephalexin (Cephalexin) 500 Mg Tablet, 500 MG PO BID Prescribed by: SWATHI PEREZ on 08/01/21 1824 Docusate Sodium (Docusate Sodium) 100 Mg Capsule, 100 MG PO DAILY, (Reported) Entered as Reported by: LESVIA BALDERAS on 05/24/22 1030 Furosemide (Furosemide) 20 Mg Tablet, 20 MG PO DAILY, (Reported) Entered as Reported by: COLLIN SERRA on 04/20/21 0908 Lisinopril (Lisinopril) 20 Mg Tablet, 10 MG PO DAILY, (Reported) Entered as Reported by: COLLIN SERRA on 04/20/21 0908 Metoprolol Succinate (Metoprolol Succinate) 50 Mg Tab.er.24h, 25 MG PO DAILY, (Reported) Entered as Reported by: HENRIQUE VOGT on 09/03/18 1337 Multivitamin with Minerals (Multiple Vitamin) 1 Each Tablet, 1 EACH PO DAILY, (Reported) Entered as Reported by: LESVIA BALDERAS on 05/24/22 1030 Niacin (Niacin) 250 Mg Tablet, 250 MG PO DAILY, (Reported) Entered as Reported by: COLLIN SERRA on 04/20/21 0908 Nitroglycerin (Nitroglycerin) 0.4 Mg Tab.subl, 0.4 MG SL PRN, (Reported) Entered as Reported by: LESVIA BALDERAS on 05/24/22 1030 Yeaddiss 3 Polyunsat Fatty Acids (Fish Oil 1,000 mg Capsule) 1,000 Mg Cap, 1,000 MG PO DAILY, (Reported) Entered as Reported by: HENRIQUE VOGT on 10/21/18 1401 Pantoprazole Sodium (Pantoprazole Sodium) 40 Mg Tablet.dr, 40 MG PO DAILY, (Reported) Entered as Reported by: INGRID GERMAIN on 06/09/19 1132 Tirzepatide (Mounjaro) 2.5 Mg/0.5 Ml Pen.injctr, 2.5 MG SQ WEEK, (Reported) Entered as Reported by: LESVIA BALDERAS on 05/24/22 1030 Vitamin E Acid Succinate (Vitamin E) 268 Mg Tablet, 268 MG PO DAILY, (Reported) Entered as Reported by: COLLIN SERRA on 04/20/21 0910 Review of Systems Review of Systems Constitutional: no symptoms reported EENTM: no symptoms reported Respiratory: no symptoms reported Cardiovascular: no symptoms reported Gastrointestinal: see HPI Genitourinary: no symptoms reported Musculoskeletal: no symptoms reported Skin: no symptoms reported Psychiatric/Neurological: See HPI Hematologic/Lymphatic: No Symptoms Reported Immunological/Allergic: no symptoms reported Past Lfbvuzi-Bydkmp-Yvisjl Hx Patient Social History Tobacco Use?: No Smoking Status: Former Smoker Use of E-Cig and/or Vaping dev: No Substance use?: No Alcohol Use?: No Alcohol Frequency: Once in a while Pt feels they are or have been: No Immunizations Up To Date First/Initial COVID19 Vaccinat: 2020 Second COVID19 Vaccination Yaya: 2020 Third COVID19 Vaccination Date: 2020 Seasonal Allergies Seasonal Allergies: Yes (MILD) Past Medical History Surgery/Hospitalization HX: colon cancer, prostate ca Surgeries: Yes (CARDIAC STENTS, CABG, LEG BX, COLON RESECTION) Abdominal (Partial colon resection), Cardiac (Atrial clip), CABG, Coronary Stent, Tonsillectomy Respiratory: Yes COPD Cardiac: Yes (CABG, STENT) Atrial Fibrillation (Status postatrial clip), Coronary Artery Disease, High Cholesterol, Hypertension Neurological: No Sexually Transmitted Disease: No HIV/AIDS: No Genitourinary: Yes Prostate Problems, Kidney Stones, Renal Failure (Chronic kidney disease) Gastrointestinal: Yes Hemorrhoids (Internal), Polyps Musculoskeletal: Yes Arthritis, Chronic Back Pain Endocrine: No HEENT: Yes (READING GLASSES) Loss of Vision: Bilateral Hearing Impairment: Denies Cancer: Yes Prostate, Skin, Colon Did You Recieve Any Treatments: Yes What Type of Treatment Did You: Chemotherapy, Radiation, Surgical Intervention Psychosocial: No Integumentary: No Blood Disorders: Yes (IRON DEF ANEMIA) Adverse Reaction/Blood Tranf: No (N/A) Physical Exam Vital Signs Vital Signs - First Documented 12/08/22 08:40 Temp 36.4 Pulse 81 Resp 18 B/P (MAP) 129/68 (88) Pulse Ox 96 O2 Delivery Room Air Capillary Refill : Height, Weight, BMI Height: 5'6.00" Weight: 252lbs. 0.0oz. [id number]; 41.29 BMI Method: General Appearance: No Apparent Distress, WD/WN, Obese HEENT: PERRL/EOMI, Other (Small per pruritic lesions on the face including one that is swollen on the right lower eyelid stated as new today) Neck: Normal Inspection; No JVD Respiratory: Lungs Clear, Normal Breath Sounds Cardiovascular: Regular Rate, Rhythm, No Edema, No Murmur Gastrointestinal: Non Tender; No Distended; Tenderness (Minimal, generalized) Extremity: Normal Inspection Neurologic/Psychiatric: Alert, Oriented x3, No Motor/Sensory Deficits, Normal Mood/Affect Skin: Normal Color, Warm/Dry, Other (Scattered bruising and pruritic lesions on the face, chest, and extremities) Progress/Results/Core Measures Suspected Sepsis SIRS Temperature: Pulse: Respiratory Rate: Laboratory Tests 12/08/22 09:15: White Blood Count 4.7 Blood Pressure / Mean: Laboratory Tests 12/08/22 08:10: INR Comment 1.0 12/08/22 08:40: Creatinine 1.81H, Total Bilirubin 0.7 12/08/22 09:15: Platelet Count 1*L Results/Orders Lab Results Laboratory Tests Test 12/08/22 08:10 12/08/22 08:40 12/08/22 09:15 Range/Units Prothrombin Time 13.6 12.2-14.7 SEC INR Comment 1.0 0.8-1.4 Activated Partial Thromboplast Time 28 24-35 SEC Sodium Level 140 135-145 MMOL/L Potassium Level 5.0 3.6-5.0 MMOL/L Chloride Level 109 H 98-107 MMOL/L Carbon Dioxide Level 20 L 21-32 MMOL/L Anion Gap 11 5-14 MMOL/L Blood Urea Nitrogen 38 H 7-18 MG/DL Creatinine 1.81 H 0.60-1.30 MG/DL Estimat Glomerular Filtration Rate 37 BUN/Creatinine Ratio 21 Glucose Level 126 H 70-105 MG/DL Calcium Level 8.8 8.5-10.1 MG/DL Corrected Calcium 8.8 8.5-10.1 MG/DL Total Bilirubin 0.7 0.1-1.0 MG/DL Aspartate Amino Transf (AST/SGOT) 31 5-34 U/L Alanine Aminotransferase (ALT/SGPT) 23 0-55 U/L Alkaline Phosphatase 82 40-136 U/L Total Protein 7.5 6.4-8.2 GM/DL Albumin 4.0 3.2-4.5 GM/DL White Blood Count 4.7 4.3-11.0 10^3/uL Red Blood Count 3.79 L 4.30-5.52 10^6/uL Hemoglobin 12.9 L 13.3-17.7 g/dL Hematocrit 39 L 40-54 % Mean Corpuscular Volume 103 H 80-99 fL Mean Corpuscular Hemoglobin 34 25-34 pg Mean Corpuscular Hemoglobin Concent 33 32-36 g/dL Red Cell Distribution Width 13.1 10.0-14.5 % Platelet Count 1 *L 130-400 10^3/uL Mean Platelet Volume 9.0-12.2 fL Immature Granulocyte % (Auto) 0 % Neutrophils (%) (Auto) 75 42-75 % Lymphocytes (%) (Auto) 12 12-44 % Monocytes (%) (Auto) 9 0-12 % Eosinophils (%) (Auto) 3 0-10 % Basophils (%) (Auto) 0 0-10 % Neutrophils # (Auto) 3.5 1.8-7.8 10^3/uL Lymphocytes # (Auto) 0.6 L 1.0-4.0 10^3/uL Monocytes # (Auto) 0.4 0.0-1.0 10^3/uL Eosinophils # (Auto) 0.2 0.0-0.3 10^3/uL Basophils # (Auto) 0.0 0.0-0.1 10^3/uL Immature Granulocyte # (Auto) 0.0 0.0-0.1 10^3/uL Smear Scan YES My Orders Orders - KATY JACKSON MD Ed Iv/Invasive Line Start (12/08/22 08:51) Cbc With Automated Diff (12/08/22 08:51) Comprehensive Metabolic Panel (12/08/22 08:51) Protime With Inr (12/08/22 08:51) Partial Thromboplastin Time (12/08/22 08:51) Platelet Pheresis Lr (12/08/22 10:08) Methylprednisolone Sod Succ (Methylpredn (12/08/22 10:15) Ed Admission (Communication) (12/08/22 10:33) Medications Given in ED Current Medications Medications Dose Ordered Sig/Christina Route Start Time Stop Time Status Last Admin Dose Admin Methylprednisolone Sodium Succinate 125 mg ONCE ONCE IVP 12/08/22 10:15 12/08/22 10:16 DC 12/08/22 10:16 125 MG Vital Signs/I&O 12/08/22 08:40 Temp 36.4 Pulse 81 Resp 18 B/P (MAP) 129/68 (88) Pulse Ox 96 O2 Delivery Room Air Capillary Refill : Progress Note : Time: 11:07 Progress Note Patient was interviewed and examined at 0835. He was noted to be comfortable with normal vital signs. Basic labs were obtained, reviewed, and interpreted by me. CBC demonstrated slight anemia with hemoglobin of 12.9. Platelets were severely low at 1.0. Patient has had some minor thrombocytopenia in the past when compared with prior labs, but has never had severe thrombocytopenia. CMP demonstrated normal electrolytes. Creatinine is slightly above his baseline presently at 1.81. BUN was 38. Glucose was mildly elevated at 126. CMP was otherwise unremarkable. Coag panel was unremarkable. Rectal exam was deferred once platelet count was noted as I did not want any mechanical manipulation of the rectum to trigger bleeding. I discussed the case with Dr. Goodson, patient's oncologist. He did not believe the thrombocytopenia was related to prior neoplastic disease but rather a new occurrence of ITP. He recommended steroids starting with Solu-Medrol 125 mg IV now followed by prednisolone 1 mg/kg daily. He also recommended 1 unit of platelets due to the active bleeding and severity of the thrombocytopenia. Dr. Manning is the hospitalist on-call for [facility] and accepts admission. Dr. Abrams, patient's primary surgeon, was consulted to landon tor the rectal bleeding and intervene if necessary. Dr. Abrams presented to the emergency room to see the patient. Dr. Goodson indicated he would be available by phone today and plan to see the patient in the hospital tomorrow. I discussed CODE STATUS with the patient and his . He elects a DO NOT RESUSCITATE status. Departure Communication (Admissions) Time/Spoke to Admitting Phy: 10:20 Dr. Manning Time/Spoke to Consulting Phy: 10:05 Dr. Hamzah Abrams at 10:51 Impression Primary Impression: Idiopathic thrombocytopenia purpura Additional Impression: Rectal bleeding Disposition: ADMITTED INPATIENT Condition: Stable Admissions Decision to Admit Reason: Admit from ER (General) Decision to Admit/Date: Dec 08, 2022 Time/Decision to Admit Time: 10:05 Departure-Patient Inst. Referrals: [facility] (PCP) Primary Care Physician KEZIA JUAREZ (Family) Primary Care Physician Copy Copies To 1: [facility]/KATY PADILLA MD Dec 08, 2022 09:52
[2022-12-08 09:54] LABS: SMEAR SCAN COMMENT YES
[2022-12-08] MEDS ORDERED: methylPREDNISolone INJ 125 MG VIAL IVP ONE (10:15)
--- NOTE | 2022-12-08 11:24 | Consultation - Surgery ---
DONN JAMES 12/08/22 1124: History of Present Illness History of Present Illness Patient Consulted On(arianna/time) 12/08/22 11:13 Date Seen by Provider: Dec 08, 2022 Time Seen by Provider: 11:14 Reason for Visit: [place] the need to defecate and then nothing but blood came out History of Present Illness 12/07 at 10:00 o'clock, patient felt the need to defecate, but nothing but mostly bright red blood with some darker blood came out. Pt says it was very diluted by the water. Pt says some blood would come out; then there would be flatulence; then more blood would come out. Pt estimates 1 cup total of blood. Pt says there may have been 1/10 pain associated with it localized to the lower abdomen (LLQ and RLQ), also associated with an urgency feeling to defecate. Pt then got up at 3:00 a.m. to urinate and had another episode of the same rectal bleeding. Then again at 6:30 a.m., it happened again and prompted the pt to go to the ED. Ambulating aggravates the issue to cause the urgency feeling. No radiation of the pain. Pt cannot localize a time of day it would be worse. Pt last ate at 6:30 but didn't finish because of last incident Allergies and Home Medications Allergies Coded Allergies: Cvldfxx-RIP-CuX Reductase Inhibitor (Verified Allergy, Severe, ELEVATED LIVER ENZYMES, 11/25/18) ketorolac (Verified Allergy, Intermediate, 11/25/18) hallucinations amoxicillin (Verified Allergy, Mild, ITCHING/RASH/GI UPSET, 11/25/18) felodipine (Verified Allergy, Mild, HAND SWELLING, 11/25/18) Patient Home Medication List Home Medication List Reviewed: Yes Acetaminophen (Acetaminophen) 500 Mg Tablet, 1,000 MG PO Q6H PRN for PAIN-MILD, (Reported) Entered as Reported by: HENRIQUE VOGT on 09/03/18 1337 Allopurinol (Allopurinol) 100 Mg Tablet, 100 MG PO DAILY, (Reported) Entered as Reported by: HENRIQUE VOGT on 09/03/18 1337 Aspirin (Aspirin EC) 81 Mg Tablet.dr, 81 MG PO DAILY, (Reported) Entered as Reported by: COLLIN SERRA on 04/20/21 0908 Cephalexin (Cephalexin) 500 Mg Tablet, 500 MG PO QID Prescribed by: AMARI DILL on 06/16/21 1935 Cephalexin (Cephalexin) 500 Mg Tablet, 500 MG PO BID Prescribed by: SWATHI PEREZ on 08/01/21 1824 Docusate Sodium (Docusate Sodium) 100 Mg Capsule, 100 MG PO DAILY, (Reported) Entered as Reported by: LESVIA BALDERAS on 05/24/22 1030 Furosemide (Furosemide) 20 Mg Tablet, 20 MG PO DAILY, (Reported) Entered as Reported by: COLLIN SERRA on 04/20/21 0908 Lisinopril (Lisinopril) 20 Mg Tablet, 10 MG PO DAILY, (Reported) Entered as Reported by: COLLIN SERRA on 04/20/21 0908 Metoprolol Succinate (Metoprolol Succinate) 50 Mg Tab.er.24h, 25 MG PO DAILY, (Reported) Entered as Reported by: HENRIQUE VOGT on 09/03/18 1337 Multivitamin with Minerals (Multiple Vitamin) 1 Each Tablet, 1 EACH PO DAILY, (Reported) Entered as Reported by: LESVIA BALDERAS on 05/24/22 1030 Niacin (Niacin) 250 Mg Tablet, 250 MG PO DAILY, (Reported) Entered as Reported by: COLLIN SERRA on 04/20/21 0908 Nitroglycerin (Nitroglycerin) 0.4 Mg Tab.subl, 0.4 MG SL PRN, (Reported) Entered as Reported by: LESVIA BALDERAS on 05/24/22 1030 [place] 3 Polyunsat Fatty Acids (Fish Oil 1,000 mg Capsule) 1,000 Mg Cap, 1,000 MG PO DAILY, (Reported) Entered as Reported by: HENRIQUE VOGT on 10/21/18 1401 Pantoprazole Sodium (Pantoprazole Sodium) 40 Mg Tablet.dr, 40 MG PO DAILY, (Reported) Entered as Reported by: INGRID GERMAIN on 06/09/19 1132 Tirzepatide (Mounjaro) 2.5 Mg/0.5 Ml Pen.injctr, 2.5 MG SQ WEEK, (Reported) Entered as Reported by: LESVIA BALDERAS on 05/24/22 1030 Vitamin E Acid Succinate (Vitamin E) 268 Mg Tablet, 268 MG PO DAILY, (Reported) Entered as Reported by: COLLIN SERRA on 04/20/21 0910 Past Tcvoqyt-Xmvuap-Xectzw Hx Patient Social History Number of Drinks Today: 0 Drug of Choice: None Smoking Status: Former Smoker (quit 25 years ago, pack a day for 40 years history) Former Smoker, Quit: September 03, 1992 Type Used: Cigarettes 2nd Hand Smoke Exposure: No (not currently) Recent Hopitalizations: No (June of 2020 last hospitalization) Alcohol Use?: No Substance type: Caffeine (2 cups of half decaf half caffeinated pe day) Have you traveled recently?: No Immunizations Up To Date Date of Pneumonia Vaccine: August 14, 2016 Seasonal Allergies Seasonal Allergies: No Surgeries History of Surgeries: Yes (CARDIAC STENTS, CABG, LEG BX, COLON RESECTION) Surgeries: Angioplasty (pt estimates he's had 2 angioplasties), Cardiac (4 way bypass, and aortic valve clip placed for AR), Coronary Stent (does not recall which stent), Rectal (colon resection, estimated 8 inches), Tonsillectomy Respiratory History of Respiratory Disorde: Yes Respiratory Disorders: Pneumonia (twice), Sleep Apnea (sleeps with CPAP), COPD Cardiovascular History of Cardiac Disorders: Yes (CABG, STENT) Cardiac Disorders: Coronary Artery Disease, High Cholesterol, Hypertension (BP now is non-hypertensive at 117/64) Neurological History of Neurological Disord: No Reproductive System Sexually Transmitted Disease: No HIV/AIDS: No Genitourinary History of Genitourinary Disor: Yes Genitourinary Disorders: Prostate Problems (prostate cancer, 45 radiation treatments), Kidney Stones Gastrointestinal History of Gastrointestinal Di: Yes Gastrointestinal Disorders: Abdominal Hernia (never), Polyps Musculoskeletal History of Musculoskeletal Dis: Yes Musculoskeletal Disorders: Arthritis (hands and back), Chronic Back Pain Endocrine History of Endocrine Disorders: No HEENT History of HEENT Disorders: Yes (READING GLASSES) HEENT Disorders: Cataract (surgery for both eyes) Loss of Vision: Bilateral (says left eye has fuzzy spot from 1:00 to 3:00 oclock) 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 and 30% in the other (loss)) Cancer History of Cancer: Yes Cancer: Prostate, Skin (on head, doesn't know which type), Colon (resected) Psychosocial History of Psychiatric Problem: No Integumentary History of Skin or Integumenta: No Blood Transfusions History of Blood Disorders: No (Other than what the pt presents with today) Hx of Blood Transfusion platelets have been transfused, just one 355 ml bag so far as of 11:45 a.m. 12/08/22 Adverse Reaction to a Blood Tr: No (N/A) Family Medical History Significant Family History: Heart Disease (Pt says FH of heart disease going back 200 years on father's side), Cancer (Father - lung cancer, younger brother MM, older brother prostate cancer), CAD Over 55 Years Old (He and his dad both had heart attacks around 57 y/o; older brother at 78 during a pacemaker procedure), Diabetes (Daughter T2DM), Hypertension (Father and older brother), Lung Disease (Uncle had TB), Vascular Disease (Father and older brother), Other Conditions/Hx (Mother had constantine gehrig's disease) Review of Systems-General Constitutional: No chills, No dizziness, No fever; malaise (arthritis in back and thumb), weight loss (30 lbs since last February from diet modifications) EENTM: No ear discharge (pt does not report any, did not look personally), No epistaxis Respiratory: No cough; dyspnea on exertion (minor, has gotten better); No hemoptysis, No phlegm, No stridor, No wheezing Cardiovascular: No chest pain, No edema; Hx of Intervention (4 way bypass, coronar stent placed, aortic valve surgery); No palpitations, No syncope; vascular heart diseas (coronary stent placed) Gastrointestinal: RLQ (04/18), LLQ (04/18), hematemesis (mostly brigh red but does have some darker blood); No loss of appetite; melena (says mostly bright red but does have some darker blood); No nausea, No vomiting Genitourinary: No dysuria, No hematuria Musculoskeletal: back pain (arthritis), joint pain (arthritis) Skin: lesions (dark spots appear whenever he bumps himself); No rash Psychiatric/Neurological: Denies Anxiety, Denies Depressed Physical Exam-General Problems Physical Exam Vital Signs Vital Signs - First Documented 12/08/22 08:40 Temp 36.4 Pulse 81 Resp 18 B/P (MAP) 129/68 (88) Pulse Ox 96 O2 Delivery Room Air Capillary Refill : Less Than 3 Seconds General Appearance: no apparent distress, obese, other (joking around, not in any pain) Neck: non-tender (no tenderness when palpating carotid arteries); No carotid bruit Respiratory: No respiratory distress, No accessory muscle use, No stridor Cardiovascular: No JVD, No bradycardia (HR 73), No tachycardia (HR 73), No gallop/S4 Peripheral Pulses: 2+ Carotid (R), 2+ Carotid (L), 2+ Dorsalis Pedis (R), 2+ Left Dors-Pedis (L), 2+ Radial Pulses (R), 2+ Radial Pulses (L) Gastrointestinal: No distended (obesity makes it difficult to tell), No guarding (no involuntary or voluntary guarding), No rebound, No tenderness, No mass Skin: normal color, warm/dry Data Review Labs Laboratory Tests 12/08/22 08:10: Prothrombin Time 13.6, INR Comment 1.0, Activated Partial Thromboplast Time 28 12/08/22 08:40: Sodium Level 140, Potassium Level 5.0, Chloride Level 109H, Carbon Dioxide Level 20L, Anion Gap 11, Blood Urea Nitrogen 38H, Creatinine 1.81H, Estimat Glomerular Filtration Rate 37, BUN/Creatinine Ratio 21, Glucose Level 126H, Calcium Level 8.8, Corrected Calcium 8.8, Total Bilirubin 0.7, Aspartate Amino Transf (AST/SGOT) 31, Alanine Aminotransferase (ALT/SGPT) 23, Alkaline Phosphatase 82, Total Protein 7.5, Albumin 4.0 12/08/22 09:15: White Blood Count 4.7, Red Blood Count 3.79L, Hemoglobin 12.9L, Hematocrit 39L, Mean Corpuscular Volume 103H, Mean Corpuscular Hemoglobin 34, Mean Corpuscular Hemoglobin Concent 33, Red Cell Distribution Width 13.1, Platelet Count 1*L, Mean Platelet Volume , Immature Granulocyte % (Auto) 0, Neutrophils (%) (Auto) 75, Lymphocytes (%) (Auto) 12, Monocytes (%) (Auto) 9, Eosinophils (%) (Auto) 3, Basophils (%) (Auto) 0, Neutrophils # (Auto) 3.5, Lymphocytes # (Auto) 0.6L, Monocytes # (Auto) 0.4, Eosinophils # (Auto) 0.2, Basophils # (Auto) 0.0, Immature Granulocyte # (Auto) 0.0, Smear Scan YES Assessment/Plan Assessment/Plan Admission Diagonsis Rectal bleeding, platelet count of 1,000 Assessment/Plan Rectal bleeding -> continue transfusing platelets and monitoring Heart disease -> continue current tx plan COPD -> continue current tx plan YLUDMILA BRUSH DO 12/08/22 1248: History of Present Illness History of Present Illness Time Seen by Provider: 11:14 History of Present Illness Surgery asked to consult regarding GI bleed and Thrombocytopenia. HPI per ED: This 82-year-old gentleman presents to the emergency room via private vehicle with concerns about rectal bleeding that started last night. He had some rectal urgency and then passed some red clots. He has had some mild abdominal discomfort that started this morning as well. The rectal bleeding occurred again this morning in the same manner. He has also had some minor ooz ing of blood from the rectum into a depends. He does not appear to be hemorrhaging at this time. He has history of colon cancer and prostate cancer. He has received chemotherapy and radiation. He is due to have a follow-up appointment with Dr. Goodson along with a PET scan this fall. His surgeon is Dr. Brush who performed a surveillance colonoscopy on him in June. A polyp was removed. I reviewed the op report and pathology report. The polyp was benign. Internal hemorrhoids were also noted. Vital signs are normal and unremarkable. Patient has had no fever or chills. He has a history of atrial fibrillation but has not been anticoagulated since having an atrial clip placed. He takes only aspirin 81 mg daily and has not taken any aspirin today. When I saw him in the ER pt was laying in his bed comfortable, no real complaints. He was just a little worried about the bloody BMs. Allergies and Home Medications Allergies Coded Allergies: [id number] Reductase Inhibitor (Verified Allergy, Severe, ELEVATED LIVER ENZYMES, 11/25/18) ketorolac (Verified Allergy, Intermediate, 11/25/18) hallucinations amoxicillin (Verified Allergy, Mild, ITCHING/RASH/GI UPSET, 11/25/18) felodipine (Verified Allergy, Mild, HAND SWELLING, 11/25/18) Patient Home Medication List Home Medication List Reviewed: Yes Acetaminophen (Acetaminophen) 500 Mg Tablet, 1,000 MG PO Q6H PRN for PAIN-MILD, (Reported) Entered as Reported by: HENRIQUE VOGT on 09/03/18 1337 Allopurinol (Allopurinol) 100 Mg Tablet, 100 MG PO DAILY, (Reported) Entered as Reported by: HENRIQUE VOGT on 09/03/18 1337 Aspirin (Aspirin EC) 81 Mg Tablet.dr, 81 MG PO DAILY, (Reported) Entered as Reported by: COLLIN SERRA on 04/20/21 0908 Cephalexin (Cephalexin) 500 Mg Tablet, 500 MG PO QID Prescribed by: AMARI DILL on 06/16/21 193 Cephalexin (Cephalexin) 500 Mg Tablet, 500 MG PO BID Prescribed by: SWATHI PEREZ on 08/01/21 182 Docusate Sodium (Docusate Sodium) 100 Mg Capsule, 100 MG PO DAILY, (Reported) Entered as Reported by: LESVIA BALDERAS on 05/24/22 1030 Furosemide (Furosemide) 20 Mg Tablet, 20 MG PO DAILY, (Reported) Entered as Reported by: COLLIN SERRA on 04/20/21 0908 Lisinopril (Lisinopril) 20 Mg Tablet, 10 MG PO DAILY, (Reported) Entered as Reported by: COLLIN SERRA on 04/20/21 0908 Metoprolol Succinate (Metoprolol Succinate) 50 Mg Tab.er.24h, 25 MG PO DAILY, (Reported) Entered as Reported by: HENRIQUE VOGT on 09/03/18 1337 Multivitamin with Minerals (Multiple Vitamin) 1 Each Tablet, 1 EACH PO DAILY, (Reported) Entered as Reported by: LESVIA BALDERAS on 05/24/22 1030 Niacin (Niacin) 250 Mg Tablet, 250 MG PO DAILY, (Reported) Entered as Reported by: COLLIN SERRA on 04/20/21 0908 Nitroglycerin (Nitroglycerin) 0.4 Mg Tab.subl, 0.4 MG SL PRN, (Reported) Entered as Reported by: LESVIA BALDERAS on 05/24/22 1030 [place] 3 Polyunsat Fatty Acids (Fish Oil 1,000 mg Capsule) 1,000 Mg Cap, 1,000 MG PO DAILY, (Reported) Entered as Reported by: HENRIQUE VOGT on 10/21/18 1401 Pantoprazole Sodium (Pantoprazole Sodium) 40 Mg Tablet.dr, 40 MG PO DAILY, (Reported) Entered as Reported by: INGRID GERMAIN on 06/09/19 1132 Tirzepatide (Mounjaro) 2.5 Mg/0.5 Ml Pen.injctr, 2.5 MG SQ WEEK, (Reported) Entered as Reported by: LESVIA BALDERAS on 05/24/22 1030 Vitamin E Acid Succinate (Vitamin E) 268 Mg Tablet, 268 MG PO DAILY, (Reported) Entered as Reported by: COLLIN SERRA on 04/20/21 0910 Past Kntckuu-Vjfdxa-Bxqxfq Hx Patient Social History Smoking Status: Former Smoker (quit 25 years ago, pack a day for 40 years history) 2nd Hand Smoke Exposure: No (not currently) Recent Hopitalizations: No (June of 2020 last hospitalization) Substance type: Caffeine (2 cups of half decaf half caffeinated pe day) Have you traveled recently?: No Seasonal Allergies Seasonal Allergies: No Surgeries History of Surgeries: Yes Surgeries: Angioplasty (pt estimates he's had 2 angioplasties), Cardiac (4 way bypass, and aortic valve clip placed for AR), Coronary Stent (does not recall which stent), Rectal (colon resection, estimated 8 inches), Tonsillectomy Respiratory History of Respiratory Disorde: Yes Respiratory Disorders: Pneumonia (twice), Sleep Apnea (sleeps with CPAP), COPD Cardiovascular History of Cardiac Disorders: Yes Cardiac Disorders: Coronary Artery Disease, High Cholesterol, Hypertension (BP now is non-hypertensive at 117/64) Neurological History of Neurological Disord: Yes Neurological Disorders: Neuropathy Genitourinary History of Genitourinary Disor: Yes Genitourinary Disorders: Prostate Problems (prostate cancer, 45 radiation treatments), Kidney Stones Gastrointestinal History of Gastrointestinal Di: Yes Gastrointestinal Disorders: Abdominal Hernia (never), Polyps Musculoskeletal History of Musculoskeletal Dis: Yes Musculoskeletal Disorders: Arthritis (hands and back), Chronic Back Pain HEENT History of HEENT Disorders: Yes HEENT Disorders: Cataract (surgery for both eyes) 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 and 30% in the other (loss)) Cancer History of Cancer: Yes Cancer: Prostate, Skin (on head, doesn't know which type), Colon (resected) Psychosocial History of Psychiatric Problem: No Integumentary History of Skin or Integumenta: No Family Medical History Significant Family History: Heart Disease (Pt says FH of heart disease going back 200 years on father's side), Cancer (Father - lung cancer, younger brother MM, older brother prostate cancer), CAD Over 55 Years Old (He and his dad both had heart attacks around 57 y/o; older brother at 78 during a pacemaker procedure), Diabetes (Daughter T2DM), Hypertension (Father and older brother), Lung Disease (Uncle had TB), Vascular Disease (Father and older br other), Other Conditions/Hx (Mother had constantine gehrig's disease) Review of Systems-General Constitutional: No chills, No dizziness, No fever; malaise (arthritis in back and thumb) EENTM: No ear discharge (pt does not report any, did not look personally), No epistaxis Respiratory: No cough; dyspnea on exertion (minor, has gotten better); No hemoptysis, No phlegm, No stridor, No wheezing Cardiovascular: No chest pain, No edema; Hx of Intervention (4 way bypass, coronar stent placed, aortic valve surgery); No palpitations, No syncope; vasc ular heart diseas (coronary stent placed) Gastrointestinal: RLQ (04/18), LLQ (/10), hematemesis (mostly brigh red but does have some darker blood); No loss of appetite, No melena (says mostly bright red but does have some darker blood), No nausea, No vomiting Genitourinary: No dysuria, No hematuria Musculoskeletal: back pain (arthritis), joint pain (arthritis) Skin: lesions (dark spots appear whenever he bumps himself); No rash Psychiatric/Neurological: Denies Anxiety, Denies Depressed Physical Exam-General Problems Physical Exam General Appearance: no apparent distress, obese, other (joking around, not in any pain) Eyes: Bilateral Eye PERRL, Bilateral Eye EOMI HEENT: pharynx normal; No scleral icterus (R), No scleral icterus (L) Neck: non-tender (no tenderness when palpating carotid arteries), supple; No carotid bruit Respiratory: lungs clear, normal breath sounds, no respiratory distress, no a ccessory muscle use Cardiovascular: regular rate, rhythm, no murmur Gastrointestinal: non tender, soft; No distended (obesity makes it difficult to tell) Rectal: deferred Extremities: no calf tenderness, pedal edema Neurologic/Psychiatric: alert, oriented x 3 Skin: normal color, warm/dry, ecchymosis (on arms, right eyelid) Assessment/Plan Assessment/Plan Assessment/Plan Thrombocytopenia - Profound only 1,000 platelets Rectal bleeding - secondary to above Heart disease COPD Pt is currently getting platelet transfusion and may need another. He is also getting steroids to hopefully help with the Thrombocytopenia. I discussed with pt that under 25K platelets he is at risk for spontaneous GI bleed; which he [place]. At under 5K he could have spontaneous intracranial bleed. Would stop the ASA he is taking. CPAP as needed. Monitor H/H pt may need blood transfusion. Pt is DNR and does not want surgery, therefore would treat him symptomatically and I am around if he changes his mind. Although, there really isn't anything surgical to do at this time; must get platelets above 50K. Supervisory-Addendum Brief Verification & Attestation Participated in pt care: history, MDM, physical Personally performed: exam, history, MDM, supervision of care Care discussed with: Medical Student Procedures: n/a Verification and Attestation of Medical Student E/M Service A medical student performed and documented this service. I then reviewed and verified all information documented by the medical student and made modifications to such information, when appropriate. I personally performed a physical exam, medical decision making and then discussed any differences between the notes and made revisions as necessary to create one note. Lyudmila Brush , 12/08/22 , 13:01 DONN JAMES Dec 08, 2022 11:24 LYUDMILA BRUSH DO Dec 08, 2022 12:48
--- NOTE | 2022-12-08 12:21 | History & Physical-Hospitalist ---
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 Abrams with a past medical history of colon cancer remotely who presented to the ER with weakness and bruising found to have a platelet count of 1000. Patient was diagnosed with ITP and hematology Dr. Evans who he sees on a regular basis recommended steroids and IVIG. He was reporting some rectal bleeding and Dr. Abrams evaluated him to not have a surgical issue right now. Source: patient, family, RN/MD Exam Limitations: no limitations Date Seen 12/08/22 Time Seen by a Provider: 13:00 Attending Physician [place] [place] PCP Admitting Physician: Annamarie Manning DO Attending Physician: Annamarie Manning DO Referring Physician Date of Admission Dec 08, 2022 at 12:05 Home Medications & Allergies Home Medications Reviewed patient Home Medication Reconciliation performed by pharmacy medication reconciliations cardiac catheterization technician and/or nursing. Patients Allergies have been reviewed. Allergies Allergies Coded Allergies Yzlwygs-RPU-VeD Reductase Inhibitor (Verified Allergy, Severe, ELEVATED LIVER ENZYMES, 11/25/18) ketorolac (Verified Allergy, Intermediate, 11/25/18) hallucinations amoxicillin (Verified Allergy, Mild, ITCHING/RASH/GI UPSET, 11/25/18) felodipine (Verified Allergy, Mild, HAND SWELLING, 11/25/18) Past Dtmfpol-Oxdhci-Vtgbpf Hx Patient Social History Marrital Status: Employed/Student: retired Tobacco Use?: No Smoking Status: Former Smoker (quit 25 years ago, pack a day for 40 years his tory) Use of E-Cig and/or Vaping dev: No Substance use?: No Substance type: Caffeine (2 cups of half decaf half caffeinated pe day) Alcohol Use?: No Alcohol Frequency: Once in a while Pt feels they are or have been: No Immunizations Up To Date First/Initial COVID19 Vaccinat: 2020 Second COVID19 Vaccination Yaya: 2020 Tetanus Booster (TDap): Less Than 5 Years Date of Pneumonia Vaccine: August 14, 2016 Seasonal Allergies Seasonal Allergies: No Current Status Advance Directives: No Advance Directive Location: verbalizes wants to be a DNR Communicates: Verbally Primary Language: Niuean Preferred Spoken Language: Niuean Past Medical History Surgeries: Angioplasty (pt estimates he's had 2 angioplasties), Cardiac (4 way bypass, and aortic valve clip placed for AR), Coronary Stent (does not recall which stent), Rectal (colon resection, estimated 8 inches), Tonsillectomy Pneumonia (twice), Sleep Apnea (sleeps with CPAP), COPD Coronary Artery Disease, High Cholesterol, Hypertension (BP now is non- hypertensive at 117/64) Sexually Transmitted Disease: No HIV/AIDS: No Prostate Problems (prostate cancer, 45 radiation treatments), Kidney Stones Abdominal Hernia (never), Polyps Arthritis (hands and back), Chronic Back Pain Cataract (surgery for both eyes) Loss of Vision: Bilateral (says left eye has fuzzy spot from 1:00 to 3:00 oclock) 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 and 30% in the other (loss)) Prostate, Skin (on head, doesn't know which type), Colon (resected) Did You Recieve Any Treatments: Yes What Type of Treatment Did You: Chemotherapy, Radiation, Surgical Intervention Blood Disorders: No (Other than what the pt presents with today) Adverse Reaction/Blood Tranf: No (N/A) Family Medical History Heart Disease (Pt says FH of heart disease going back 200 years on father's side), Cancer (Father - lung cancer, younger brother MM, older brother prostate cancer), CAD Over 55 Years Old (He and his dad both had heart attacks around 57 y/o; older brother at 78 during a pacemaker procedure), Diabetes (Daughter T2DM), Hypertension (Father and older brother), Lung Disease (Uncle had TB), Vascular Disease (Father and older brother), Other Conditions/Hx (Mother had constantine gehrig's disease) Review of Systems Constitutional: see HPI, malaise, weakness EENTM: no symptoms reported Respiratory: no symptoms reported Cardiovascular: no symptoms reported Gastrointestinal: melena Genitourinary: hematuria Musculoskeletal: back pain Skin: no symptoms reported Psychiatric/Neurological: Anxiety, Depressed All Other Systems Reviewed Negative Unless Noted: Yes Physical Exam Physical Exam Vital Signs Vital Signs - First Documented 12/08/22 12/08/22 12/08/22 08:40 12:15 13:41 Temp 36.4 Pulse 81 Resp 18 B/P (MAP) 129/68 (88) Pulse Ox 96 O2 Delivery Room Air O2 Flow Rate 0.00 FiO2 21 Capillary Refill : Less Than 3 Seconds Height, Weight, BMI Height: 5'6.00" Weight: 252lbs. 0.0oz. 114.777280iz; 41.00 BMI Method: General Appearance: No Apparent Distress, Chronically ill Eyes: Right Eye Normal Inspection, Right Eye PERRL HEENT: PERRL/EOMI, Normal ENT Inspection, Pharynx Normal, Moist Mucous Membrane s Neck: Full Range of Motion, Normal Inspection, Non Tender Respiratory: Chest Non Tender, Lungs Clear, Normal Breath Sounds, No Accessory Muscle Use, No Respiratory Distress Cardiovascular: Regular Rate, Rhythm, No Edema, No Gallop, No JVD, No Murmur, Normal Peripheral Pulses Gastrointestinal: Normal Bowel Sounds, No Organomegaly, No Pulsatile Mass, Non Tender, Soft Back: Normal Inspection, No CVA Tenderness, No Vertebral Tenderness Extremity: Normal Capillary Refill, Normal Inspection, Normal Range of Motion, Non Tender, No Calf Tenderness, No Pedal Edema Neurologic/Psychiatric: Alert, Oriented x3, No Motor/Sensory Deficits, Normal Mood/Affect Skin: Normal Color, Warm/Dry, Ecchymosis (Arms and legs and torso) Lymphatic: No Adenopathy Results Results/Procedures Labs Laboratory Tests 12/08/22 08:40 12/08/22 09:15 12/08/22 16:45 Patient resulted labs reviewed. 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
[2022-12-08] MEDS ORDERED: LACTULOSE SYRUP 10GM/15ML 30ML UDC PO PRN (13:00)
[2022-12-08] MEDS ORDERED: BISACODYL 10 MG SUPPOSITORY PR PRN (13:00)
[2022-12-08] MEDS ORDERED: HYDROmorphone INJECTION 2 MG/ML VIAL IV PRN (13:00)
[2022-12-08] MEDS ORDERED: NS IV 500 ML 500 ML IV PRN (13:00)
[2022-12-08] MEDS ORDERED: CALCIUM CARBONATE 500 MG CHEW TABLET PO PRN (13:00)
[2022-12-08] MEDS ORDERED: oxyCODONE IMMEDIATE RELEASE 5 MG TABLET PO PRN (13:00)
[2022-12-08] MEDS ORDERED: MELATONIN 3 MG TABLET PO PRN (13:00)
[2022-12-08] MEDS ORDERED: MILK OF MAGNESIA 400 MG/5 ML 30 ML UDC PO PRN (13:00)
[2022-12-08] MEDS ORDERED: diphenhydrAMINE 25 MG TABLET PO PRN (13:00)
[2022-12-08] MEDS ORDERED: ONDANSETRON 4 MG ORAL DISSOLVE TABLET PO PRN (13:00)
[2022-12-08] MEDS ORDERED: diphenhydrAMINE INJ 50 MG/ML VIAL IVP PRN (13:00)
[2022-12-08] MEDS ORDERED: ANTACID SUSPENSION 30 ML UDC PO PRN (13:00)
[2022-12-08] MEDS ORDERED: ONDANSETRON INJECTION 4 MG/2 ML (SDV) IV PRN (13:00)
[2022-12-08] MEDS ORDERED: ACETAMINOPHEN 325 MG TABLET PO PRN (13:00)
[2022-12-08] MEDS ORDERED: RT-ALBUTEROL SULF 2.5 MG/3 ML PRE-MIX VIAL INH PRN (14:15)
--- NOTE | 2022-12-08 14:35 | Tele-ICU Consult ---
History of Present Illness History of Present Illness Date Seen by Provider: Dec 08, 2022 Time Seen by Provider: 14:28 Reason for Visit: [place] the need to defecate and then nothing but blood came out History of Present Illness eICU Critical Care Consult 82 yo M came to ED with rectal bleeding, Caries Dx of ITP with plt count today 1000, Also has prostate and colon Ca Also has Hx of atrial fib but not on OAC, had atrial clip placed, Takes ASA 81 ng Has been given one unit of plts, Hospice Office Coordinator has been contacted, recommended IVIG if keep bleeding At present VS are ok, pt not orthostatic Other PMH c/p CABG, cardiac stent, HTN, HLD, CKD, Pt is DNR Allergies and Home Medications Allergies Coded Allergies: Xqkrrdg-AWW-YtO Reductase Inhibitor (Verified Allergy, Severe, ELEVATED LIVER ENZYMES, 11/25/18) ketorolac (Verified Allergy, Intermediate, 11/25/18) hallucinations amoxicillin (Verified Allergy, Mild, ITCHING/RASH/GI UPSET, 11/25/18) felodipine (Verified Allergy, Mild, HAND SWELLING, 11/25/18) Home Medications Acetaminophen 500 Mg Tablet, 1,000 MG PO Q6H PRN for PAIN-MILD, (Reported) Allopurinol 100 Mg Tablet, 100 MG PO DAILY, (Reported) Aspirin 81 Mg Tablet.dr, 81 MG PO DAILY, (Reported) Cephalexin 500 Mg Tablet, 500 MG PO QID Prescribed by: AMARI DILL on 06/16/211934 Cephalexin 500 Mg Tablet, 500 MG PO BID Prescribed by: SWATHI PEREZ on 08/01/211823 Docusate Sodium 100 Mg Capsule, 100 MG PO DAILY, (Reported) Furosemide 20 Mg Tablet, 20 MG PO DAILY, (Reported) Lisinopril 20 Mg Tablet, 10 MG PO DAILY, (Reported) TAKES OF A 20MG TABLET TO EQUAL 10MG Metoprolol Succinate 50 Mg Tab.er.24h, 25 MG PO DAILY, (Reported) TAKES OF A 50MG TABLET TO EQUAL 25MG DAILY Multivitamin with Minerals 1 Each Tablet, 1 EACH PO DAILY, (Reported) Niacin 250 Mg Tablet, 250 MG PO DAILY, (Reported) Nitroglycerin 0.4 Mg Tab.subl, 0.4 MG SL PRN, (Reported) Tuckerman 3 Polyunsat Fatty Acids 1,000 Mg Cap, 1,000 MG PO DAILY, (Reported) Pantoprazole Sodium 40 Mg Tablet.dr, 40 MG PO DAILY, (Reported) Tirzepatide 2.5 Mg/0.5 Ml Pen.injctr, 2.5 MG SQ WEEK, (Reported) Vitamin E Acid Succinate 268 Mg Tablet, 268 MG PO DAILY, (Reported) Past Medical/Social/Family Hx Patient Social History Tobacco Use?: No Smoking Status: Former Smoker (quit 25 years ago, pack a day for 40 years history) Use of E-Cig and/or Vaping dev: No Substance use?: No Substance type: Caffeine (2 cups of half decaf half caffeinated pe day) Alcohol Use?: No Alcohol Frequency: Once in a while Pt stated abuse/neglect: No Immunizations Up To Date First/Initial COVID19 Vaccinat: 2020 Second COVID19 Vaccination Yaya: 2020 Tetanus Booster (TDap): Less Than 5 Years Date of Pneumonia Vaccine: August 14, 2016 Current Status Advance Directives: No Advance Directive Location: verbalizes wants to be a DNR Communicates: Verbally Primary Language: Armenian Preferred Spoken Language: Armenian Review of Systems Constitutional: see HPI Skin: other (bruising, petchiae) Focused Exam Height, Weight, BMI Height: 5'6.00" Weight: 252lbs. 0.0oz. 114.853642sk; 41.00 BMI Method: Exam Exam Patient acknowledged, consented, and participated in this virtual visit which was conducted using real time audio/video Vital Signs Date Time Temp Pulse Resp B/P (MAP) Pulse Ox O2 Delivery O2 Flow Rate FiO2 12/08/22 14:11 Room Air 0.00 12/08/22 13:41 36.4 81 96 21 12/08/22 13:00 74 38 150/78 (102) 95 Room Air 12/08/22 12:35 74 12/08/22 12:10 37.0 70 15 117/65 95 Room Air 12/08/22 12:05 37.0 68 16 117/65 95 Room Air 12/08/22 11:03 36.7 66 16 119/78 97 Room Air 12/08/22 10:48 36.2 66 12 123/71 96 Room Air 12/08/22 08:40 36.4 81 18 129/68 (88) 96 Room Air Height & Weight Height: 5'6.00" Weight: 252lbs. 0.0oz. 114.826961av; 41.00 BMI Method: General Appearance: No Apparent Distress, WD/WN, Obese HEENT: PERRL/EOMI, Other (Small per pruritic lesions on the face including one that is swollen on the right lower eyelid stated as new today) Neck: Normal Inspection; No JVD Respiratory: Lungs Clear, Normal Breath Sounds Cardiovascular: Regular Rate, Rhythm, No Edema, No Murmur Capillary Refill: Less Than 3 Seconds Peripheral Pulses: 2+ Carotid (R), 2+ Carotid (L), 2+ Dorsalis Pedis (R), 2+ Left Dors-Pedis (L), 2+ Radial Pulses (R), 2+ Radial Pulses (L) Gastrointestinal: normal bowel sounds, non tender, soft; No distended (obesity makes it difficult to tell); other (still haing some rectal bleeding, pure blood, ) Extremity: Normal Inspection Neurologic/Psychiatric: Alert, Oriented x3, No Motor/Sensory Deficits, Normal Mood/Affect Skin: Normal Color, Warm/Dry, Other (Scattered bruising and pruritic lesions on the face, chest, and extremities, +petheciae) Results Lab Laboratory Tests 12/08/22 08:40 12/08/22 09:15 Assessment/Plan Assessment/Plan continue, to monitor Hb, may need more plt, also if bleeding continues IVIG Dr Manning has been in contact with oncologist who follows pt Spoke to Dr Manning and policeman: Critically Ill Patient Time spent with patient (mins): 30 KIM BLOOM MD Dec 08, 2022 14:35
[2022-12-08 17:12] LABS: MEAN CORPUSCULAR HEMOGLOBIN 34 pg (25-34); MONOCYTES # (AUTO) 0.1 10^3/uL (0.0-1.0); MONOCYTES % (AUTO) 1 % (0-12)
[2022-12-08 17:14] LABS: BASOPHILS % (AUTO) 0 % (0-10); EOSINOPHILS % (AUTO) 0 % (0-10); HEMATOCRIT 36 % (40-54); HEMOGLOBIN 12.1 g/dL (13.3-17.7); LYMPHOCYTES # (AUTO) 0.4 10^3/uL (1.0-4.0); LYMPHOCYTES % (AUTO) 6 % (12-44); MEAN CORPUSCULAR HGB CONC 34 g/dL (32-36); MEAN CORPUSCULAR VOLUME 101 fL (80-99); MEAN PLATELET VOLUME 12.5 fL (9.0-12.2); NEUTROPHILS # (AUTO) 5.5 10^3/uL (1.8-7.8); NEUTROPHILS % (AUTO) 92 % (42-75)
[2022-12-08] MEDS: NS IV 1000 ML 1,000 ML IV SCH ×2 (17:17→21:08)
[2022-12-08] MEDS: IMMUNE GLOBULIN,GAMMA 200 ML IV SCH ×5 (17:18→20:13)
[2022-12-08 17:19] LABS: PLATELET COUNT 0 10^3/uL (130-400)
--- NOTE | 2022-12-08 17:32 | Progress Note ---
Standard Progress Note Progress Notes/Assess & Plan Date Seen by a Provider: Dec 08, 2022 Time Seen by a Provider: 17:31 Progress/Assessment & Plan called for plt count of 0, will give another unit, Got prednisone 125 mg in ED, now getting IVIG, No acitve bleeding, Devonte Bloom MD Final Diagnosis ITP KIM BLOOM MD Dec 08, 2022 17:32
[2022-12-08 17:41] LABS: BAND NEUTROPHILS 2 %; BASOPHILS % (MANUAL) 0 %; EOSINOPHILS % (MANUAL) 0 %; LYMPHOCYTES % (MANUAL) 5 %; METAMYELOCYTES % 1 %; MONOCYTES % (MANUAL) 0 %; NEUTROPHILS % (MANUAL) 92 %
[2022-12-08 17:42] LABS: RBC MORPH NORMAL
[2022-12-08] MEDS ORDERED: NS IV 500 ML 500 ML IV SCH (17:45)
[2022-12-08] MEDS: SENNOSIDES 8.6 MG TABLET PO SCH (20:30)
[2022-12-08] MEDS: DOCUSATE SODIUM 100 MG CAPSULE PO SCH (20:30)
[2022-12-09 04:22] LABS: BASOPHILS % (AUTO) 0 % (0-10); EOSINOPHILS % (AUTO) 0 % (0-10); HEMOGLOBIN 10.4 g/dL (13.3-17.7); MEAN CORPUSCULAR VOLUME 102 fL (80-99)
[2022-12-09 04:24] LABS: HEMATOCRIT 30 % (40-54); LYMPHOCYTES # (AUTO) 0.5 10^3/uL (1.0-4.0); LYMPHOCYTES % (AUTO) 6 % (12-44); MEAN CORPUSCULAR HEMOGLOBIN 35 pg (25-34); MEAN CORPUSCULAR HGB CONC 34 g/dL (32-36); MONOCYTES # (AUTO) 0.4 10^3/uL (0.0-1.0); MONOCYTES % (AUTO) 5 % (0-12); NEUTROPHILS # (AUTO) 7.8 10^3/uL (1.8-7.8); NEUTROPHILS % (AUTO) 89 % (42-75); WHITE BLOOD COUNT 8.7 10^3/uL (4.3-11.0)
[2022-12-09 04:38] LABS: ALBUMIN 3.2 GM/DL (3.2-4.5); BILIRUBIN,TOTAL 0.6 MG/DL (0.1-1.0); CREATININE SERUM 1.49 MG/DL (0.60-1.30); POTASSIUM 4.7 MMOL/L (3.6-5.0); TOTAL PROTEIN 7.5 GM/DL (6.4-8.2)
[2022-12-09 04:43] LABS: PLATELET COUNT 0 10^3/uL (130-400); SMEAR SCAN COMMENT YES
[2022-12-09] MEDS: POTASSIUM CL 10MEQ/50ML IVPB 50 ML IV SCH (05:24)
[2022-12-09] MEDS: POTASSIUM CHLORIDE 20 MEQ TABLET PO SCH (05:24)
[2022-12-09] MEDS: MAGNESIUM 1 GM/100 ML IVPB 100 ML IV SCH (05:24)
[2022-12-09] MEDS: NS IV 1000 ML 1,000 ML IV SCH ×2 (05:41→14:19)
--- NOTE | 2022-12-09 06:09 | Progress Note - Hospitalist ---
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 Abrams with a past medical history of colon cancer remotely who presented to the ER with weakness and bruising found to have a platelet count of 1000. Patient was diagnosed with ITP and hematology Dr. Evans who he sees on a regular basis recommended steroids and IVIG. He was reporting some rectal bleeding and Dr. Abrams evaluated him to not have a surgical issue right now. Subjective/Events-last exam Patient doing about the same Still bleeding Platelet count of [address] Evans and platelets IVIG infused Review of Systems General: Fatigue, Malaise Gastrointestinal: Hematochezia Objective Exam Vital Signs Vital Signs Date Time Temp Pulse Resp B/P (MAP) Pulse Ox O2 Delivery O2 Flow Rate FiO2 12/10/22 06:01 96 Room Air 12/10/22 06:00 71 21 129/72 (91) 12/10/22 00:28 36.1 12/09/22 21:47 2.00 12/08/22 13:41 21 Capillary Refill : Less Than 3 Seconds General Appearance: No Apparent Distress, WD/WN, Chronically ill Respiratory: Lungs Clear, Normal Breath Sounds Cardiovascular: Regular Rate, Rhythm Neurologic/Psychiatric: Alert, Oriented x3 Results/Procedures Lab Laboratory Tests 12/09/22 17:32 12/10/22 02:30 Patient resulted labs reviewed. 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
[2022-12-09] MEDS ORDERED: predniSONE 20 MG TABLET PO SCH (07:00)
--- NOTE | 2022-12-09 07:42 | Tele-ICU Progress Note ---
Progress Note video rounds completed 82 yo M came to ED with rectal bleeding, Caries Dx of ITP with plt count today 1000, Also has prostate and colon Ca Also has Hx of atrial fib but not on OAC, had atrial Watchman procedure Has been given 2 units of plts. He is DNR Hematology on consult. Transfer to higher level of care being considered Plt count this am is 0 He is having rectal bleeding Hgb down from 12 to 10 gms PE: hemodynamically normal Pulse: 67 BP: 125/57 Pulse Ox: 96% Resting comfortably in bed IMP: ITP with 0 plts Has received IVIG and PO prednisone. Awaiting hematology consult Time spent in review 20 Minutes I am monitoring this patient remotely [place] state. . I am unable to provide a direct physical examination. My review is based on video review and review of medical records and chart and discussion with bedside nursing staff. Focused Exam Height, Weight, BMI Height: 5'6.00" Weight: 252lbs. 0.0oz. 114.143974cn; 41.14 BMI Method: Labs Laboratory Tests 12/08/22 08:40 12/08/22 09:15 12/08/22 16:45 12/09/22 03:45 Labs Laboratory Tests 12/08/22 08:40 12/08/22 09:15 12/08/22 16:45 12/09/22 03:45 Results Results/Procedures Lab Laboratory Tests 12/08/22 08:40 12/08/22 09:15 12/08/22 16:45 12/09/22 03:45 Results Labs Labs Laboratory Tests 12/08/22 08:10: Prothrombin Time 13.6, INR Comment 1.0, Activated Partial Thromboplast Time 28 12/08/22 08:40: Sodium Level 140, Potassium Level 5.0, Chloride Level 109H, Carbon Dioxide Level 20L, Anion Gap 11, Blood Urea Nitrogen 38H, Creatinine 1.81H, Estimat Glomerular Filtration Rate 37, BUN/Creatinine Ratio 21, Glucose Level 126H, Calcium Level 8.8, Corrected Calcium 8.8, Total Bilirubin 0.7, Aspartate Amino Transf (AST/SGOT) 31, Alanine Aminotransferase (ALT/SGPT) 23, Alkaline Phosphatase 82, Total Protein 7.5, Albumin 4.0 12/08/22 09:15: White Blood Count 4.7, Red Blood Count 3.79L, Hemoglobin 12.9L, Hematocrit 39L, Mean Corpuscular Volume 103H, Mean Corpuscular Hemoglobin 34, Mean Corpuscular Hemoglobin Concent 33, Red Cell Distribution Width 13.1, Platelet Count 1*L, Mean Platelet Volume , Immature Granulocyte % (Auto) 0, Neutrophils (%) (Auto) 75, Lymphocytes (%) (Auto) 12, Monocytes (%) (Auto) 9, Eosinophils (%) (Auto) 3, Basophils (%) (Auto) 0, Neutrophils # (Auto) 3.5, Lymphocytes # (Auto) 0.6L, Monocytes # (Auto) 0.4, Eosinophils # (Auto) 0.2, Basophils # (Auto) 0.0, Immature Granulocyte # (Auto) 0.0, Smear Scan YES 12/08/22 16:45: White Blood Count 6.0, Red Blood Count 3.55L, Hemoglobin 12.1L, Hematocrit 36L, Mean Corpuscular Volume 101H, Mean Corpuscular Hemoglobin 34, Mean Corpuscular Hemoglobin Concent 34, Red Cell Distribution Width 13.0, Platelet Count 0*L, Mean Platelet Volume 12.5H, Immature Granulocyte % (Auto) 1, Neutrophils (%) (Auto) 92H, Lymphocytes (%) (Auto) 6L, Monocytes (%) (Auto) 1, Eosinophils (%) (Auto) 0, Basophils (%) (Auto) 0, Neutrophils # (Auto) 5.5, Lymphocytes # (Auto) 0.4L, Monocytes # (Auto) 0.1, Eosinophils # (Auto) 0.0, Basophils # (Auto) 0.0, Immature Granulocyte # (Auto) 0.0, Neutrophils % (Manual) 92, Lymphocytes % (Manual) 5, Monocytes % (Manual) 0, Eosinophils % (Manual) 0, Basophils % (Manual) 0, Metamyelocytes % 1, Band Neutrophils 2, Percent Immature Platelet Fraction 0.0, Blood Morphology Comment NORMAL 12/09/22 03:45: White Blood Count 8.7, Red Blood Count 2.97L, Hemoglobin 10.4L, Hematocrit 30L, Mean Corpuscular Volume 102H, Mean Corpuscular Hemoglobin 35H, Mean Corpuscular Hemoglobin Concent 34, Red Cell Distribution Width 13.0, Platelet Count 0*L, Mean Platelet Volume , Immature Granulocyte % (Auto) 1, Neutrophils (%) (Auto) 89H, Lymphocytes (%) (Auto) 6L, Monocytes (%) (Auto) 5, Eosinophils (%) (Auto) 0, Basophils (%) (Auto) 0, Neutrophils # (Auto) 7.8, Lymphocytes # (Auto) 0.5L, Monocytes # (Auto) 0.4, Eosinophils # (Auto) 0.0, Basophils # (Auto) 0.0, Immature Granulocyte # (Auto) 0.0, Percent Immature Platelet Fraction 0.0, Sodium Level 139, Potassium Level 4.7, Chloride Level 109H, Carbon Dioxide Level 19L, Anion Gap 11, Blood Urea Nitrogen 47H, Creatinine 1.49H, Estimat Glomerular Filtration Rate 47, BUN/Creatinine Ratio 32, Glucose Level 159H, Calcium Level 8.0L, Corrected Calcium 8.6, Magnesium Level 2.0, Total Bilirubin 0.6, Aspartate Amino Transf (AST/SGOT) 17, Alanine Aminotransferase (ALT/SGPT) 16, Alkaline Phosphatase 60, Total Protein 7.5, Albumin 3.2, Smear Scan YES KIM BRAN MD Dec 09, 2022 07:42
[2022-12-09] MEDS: predniSONE 20 MG TABLET PO SCH (08:49)
[2022-12-09] MEDS: DOCUSATE SODIUM 100 MG CAPSULE PO SCH ×2 (08:50→20:28)
[2022-12-09] MEDS: SENNOSIDES 8.6 MG TABLET PO SCH ×2 (08:50→20:28)
[2022-12-09] MEDS ORDERED: INCL284S SQ (08:58)
[2022-12-09] MEDS: IMMUNE GLOBULIN,GAMMA 200 ML IV SCH ×5 (13:58→17:15)
[2022-12-09 17:40] LABS: BASOPHILS % (AUTO) 0 % (0-10); EOSINOPHILS % (AUTO) 0 % (0-10); HEMOGLOBIN 8.1 g/dL (13.3-17.7); NEUTROPHILS # (AUTO) 7.1 10^3/uL (1.8-7.8); NEUTROPHILS % (AUTO) 88 % (42-75); WHITE BLOOD COUNT 8.1 10^3/uL (4.3-11.0)
[2022-12-09 17:42] LABS: HEMATOCRIT 23 % (40-54); LYMPHOCYTES # (AUTO) 0.5 10^3/uL (1.0-4.0); LYMPHOCYTES % (AUTO) 6 % (12-44); MEAN CORPUSCULAR HEMOGLOBIN 38 pg (25-34); MEAN CORPUSCULAR HGB CONC 36 g/dL (32-36); MEAN CORPUSCULAR VOLUME 107 fL (80-99); MONOCYTES # (AUTO) 0.4 10^3/uL (0.0-1.0); MONOCYTES % (AUTO) 5 % (0-12)
[2022-12-09 17:47] LABS: PLATELET COUNT 0 10^3/uL (130-400)
[2022-12-09] MEDS ORDERED: NS IV 500 ML 500 ML IV SCH (18:15)
[2022-12-09 18:45] VITALS: BP 109/78
--- NOTE | 2022-12-09 19:21 | CONSULTATION REPORT ---
DATE OF SERVICE: 12/09/2022 Patient is admitted to ICU, bed 9. PHYSICIAN REQUESTING CONSULTATION: Annaamrie Manning DO IMPRESSION: 1. An 82-year-old male admitted to the hospital with platelet count of 1000 and gastrointestinal bleeding. 2. Previous blood counts within normal limits including late October lab work done at the [facility]. 3. No new medications or infections within the last month, but gave history of several insect bites on his legs approximately 2 weeks ago after mowing his yard. 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 Status post adjuvant chemotherapy with XELOX regimen x8 cycles, completed in early 2019. Previous restaging scans with no evidence of metastatic disease. Last colonoscopy on 06/22/[address] Abrams with evidence of diverticulosis and a hyperplastic polyp. RECOMMENDATIONS: 1. This is clinically consistent with an ITP, although the inciting factor is unknown. 2. Agree with prednisone 1 mg/kg p.o. daily. 3. Administer IVIG 1 gram per kilogram daily x2 and transfuse platelets as needed because of gastrointestinal bleeding. 4. Agree with surgical consult, especially if the bleeding is not being controlled, he may need further evaluation or exploration. 5. Agree with stopping all antiplatelet agents or anticoagulants. 6. Monitor CBC every 6 hours as the hemoglobin has dropped significantly by today evening. I would recommend transfusing 1 unit of packed red blood cells because of his age and cardiac history and maintain hemoglobin more than 8 g/dL. 7. If the platelet count is not improving, we may have to administer rituximab and/or thrombopoietic agents. 8. If the bleeding is worsening, he may need transfer to a tertiary care center for further management. 9. We will follow the patient with you. BRIEF HISTORY: The patient is an 82-year-old male who presented to the emergency room with increased bruising and bleeding per rectum. During evaluation, he was noted to have a platelet count of 1. Previously, his blood counts have been normal. He was admitted to the hospital with a clinical diagnosis of ITP. He was started on prednisone 1 mg/kg daily with food. He was also administered IVIG 1 gram per kilogram daily x2 days and a platelet transfusion because of GI bleeding. Hematology consultation was requested for further recommendations and management. He denied any new medications. He denied any fevers, chills or infections. No sore throat or runny nose. Nobody else has been sick at home. Approximately 2 weeks ago, he mowed his lawn and had several insect bites on his legs, which was unusual for him. The last new medication he was started was approximately 2-1/2 months ago for hypercholesterolemia. 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 He completed adjuvant chemotherapy with XELOX regimen for 8 cycles by 05/2019 and has been on surveillance. He has not had any evidence of recurrence and scheduled for next restaging scans later in December. Last colonoscopy was on 06/22/2022 when hyperplastic polyp was removed and he had evidence of diverticulosis without diverticulitis. Other significant history include coronary artery disease, hypertension, COPD, prostate cancer. PAST SURGICAL HISTORY: Prior surgeries include CABG in 2004, right hemicolectomy in 2018. FAMILY HISTORY: Significant for prostate cancer in his father and brother. Nephrolithiasis in his brother. SOCIAL HISTORY: The patient is and lives in [place], [place]. He has no children of his own, but has a stepdaughter. No tobacco, alcohol, or recreational drug use. He is retired. Prior to that, he worked at [employer]. REVIEW OF SYSTEMS: Prior to admission, he was fairly active and mowed small acreage by himself. Denied any chest pain, palpitations, orthopnea, or PND. He has been on a diet and has lost 25-30 pounds gradually over the last year. He was started on a new medication for hypercholesterolemia approximately 2-1/2 months ago, Leqvio. He denied any fevers, chills, or other infections over the last month. He denied any [id number] medications recently. He has continued all his medications, which he has been taking for a fairly long time. PHYSICAL EXAMINATION: GENERAL: Today showed an elderly male, moderately obese, awake and oriented and does not appear in any acute distress. VITAL SIGNS: Temperature was 36.2, pulse rate of 70, respirations 23, blood pressure 131/69 with oxygen saturation of 97% on room air. HEENT: Normocephalic with male pattern baldness. Extraocular muscles intact. Oral mucosa moist without lesions. The patient had few small ecchymosis on his eyelids and around the port site. NECK: Supple, with no JVD. NODES: No cervical, supraclavicular or axillary lymphadenopathy palpable. CHEST: Symmetrical with a right-sided port. LUNGS: Fairly clear to auscultation without wheezes or rales. CARDIOVASCULAR: Regular in rate and rhythm without murmurs or gallops. ABDOMEN: Obese, soft, nontender with no hepatosplenomegaly or other masses palpable. EXTREMITIES: Showed a few petechiae in both lower extremities. NEUROLOGIC: Showed no focal motor deficits. CBC done at the time of admission from the Emergency Room showed white blood cell count of 4.7, hemoglobin 12.9, platelet count of 1.0. Neutrophil count was 3.5, lymphocyte count 0.6, monocyte count 0.4 and eosinophil count 0.2. Most recent platelet count done on 12/09/2022 at 17:32, showed white count of 8.1, hemoglobin 8.1, platelet count 0 with a neutrophil count 7.1, lymphocyte count 0.5 and monocyte count 0.4. Chemistry panel done at the time of admission showed relatively normal electrolytes. BUN was 38 and creatinine 1.81 with GFR 37 mL per minute. Liver function studies were within normal limits. Chemistry panel done today afternoon showed relatively normal electrolytes. BUN was 47 and creatinine 1.49 with GFR of 47 mL per minute. Glucose was 159 with normal liver function studies. Protime and PTT done at the time of admission was within normal limits. I reviewed the peripheral smear, which showed no platelet clumps with a significantly reduced platelet numbers. Red cells appeared unremarkable with no schistocytes. White blood cells showed mostly mature neutrophils with adequate granulation. No immature cells identified. Thank you for allowing me to participate in this patient's care. I will follow the patient with you and make appropriate recommendations. Job ID: [id number] DocumentID: [id number] Dictated Date: 12/09/2022 18:27:05 [employer] Date: 12/09/2022 19:18:00 Dictated By: DERRICK CALDWELL MD
[2022-12-09] MEDS: SUCRALFATE 1 GM TABLET PO SCH (20:53)
[2022-12-09 21:47] VITALS: BP 128/57
[2022-12-09 22:07] VITALS: BP 147/75
[2022-12-09 22:21] VITALS: BP 150/73
--- NOTE | 2022-12-09 22:30 | Progress Note - Urology ---
Progress Note-Urology Final Diagnosis wants to restart allopourinal that he takes at home for gout, 100 mg/d, Has not had a problem with platlet count will order, KIM BLOOM MD Dec 09, 2022 22:30
[2022-12-10 00:28] VITALS: BP 129/72
[2022-12-10 02:39] LABS: BASOPHILS % (AUTO) 0 % (0-10); EOSINOPHILS % (AUTO) 0 % (0-10); HEMATOCRIT 25 % (40-54)
[2022-12-10 02:41] LABS: HEMOGLOBIN 8.6 g/dL (13.3-17.7); LYMPHOCYTES # (AUTO) 0.6 10^3/uL (1.0-4.0); LYMPHOCYTES % (AUTO) 7 % (12-44); MEAN CORPUSCULAR HEMOGLOBIN 36 pg (25-34); MEAN CORPUSCULAR HGB CONC 35 g/dL (32-36); MEAN CORPUSCULAR VOLUME 103 fL (80-99); MONOCYTES # (AUTO) 0.5 10^3/uL (0.0-1.0); MONOCYTES % (AUTO) 5 % (0-12); NEUTROPHILS # (AUTO) 7.5 10^3/uL (1.8-7.8); NEUTROPHILS % (AUTO) 86 % (42-75); WHITE BLOOD COUNT 8.7 10^3/uL (4.3-11.0)
[2022-12-10 02:44] LABS: PLATELET COUNT 0 10^3/uL (130-400)
[2022-12-10 02:57] LABS: ALBUMIN 2.8 GM/DL (3.2-4.5); BILIRUBIN,TOTAL 0.6 MG/DL (0.1-1.0); CALCIUM 7.7 MG/DL (8.5-10.1); CREATININE SERUM 1.42 MG/DL (0.60-1.30); POTASSIUM 4.7 MMOL/L (3.6-5.0); TOTAL PROTEIN 7.5 GM/DL (6.4-8.2)
[2022-12-10] MEDS: POTASSIUM CHLORIDE 20 MEQ TABLET PO SCH (03:25)
[2022-12-10] MEDS: POTASSIUM CL 10MEQ/50ML IVPB 50 ML IV SCH (03:25)
[2022-12-10] MEDS: MAGNESIUM 1 GM/100 ML IVPB 100 ML IV SCH (03:25)
[2022-12-10] MEDS: SUCRALFATE 1 GM TABLET PO SCH ×3 (06:43→15:41)
--- NOTE | 2022-12-10 07:10 | Progress Note - Hospitalist ---
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 and Dr. Abrams with a past medical history of colon cancer remotely who presented to the ER with weakness and bruising found to have a platelet count of 1000. Patient was diagnosed with ITP and hematology Dr. Evans who he sees on a regular basis recommended steroids and IVIG. He was reporting some rectal bleeding and Dr. Abrams evaluated him to not have a surgical issue right now. Subjective/Events-last exam Patient remained stable and vitals remained stable but it is concerning that his platelets are 0 still Platelet infusion attempted Dr. Evans has seen him Rectal bleeding still occurring Patient's cognition seems to be changing a bit We will order CT scan if continues to check for bleed Prognosis remains poor May need to transfer to by [facility] if Bleeding continues Review of Systems General: Fatigue, Malaise Objective Exam Vital Signs Vital Signs Date Time Temp Pulse Resp B/P (MAP) Pulse Ox O2 Delivery O2 Flow Rate FiO2 12/10/22 15:53 36.1 77 20 145/64 94 Room Air 12/09/22 21:47 2.00 12/08/22 13:41 21 Capillary Refill : Less Than 3 Seconds General Appearance: No Apparent Distress, WD/WN, Chronically ill Respiratory: Lungs Clear, Normal Breath Sounds Cardiovascular: Regular Rate, Rhythm Neurologic/Psychiatric: Alert, Oriented x3, No Motor/Sensory Deficits, Normal Mood/Affect Skin: Ecchymosis, Petechia Results/Procedures Lab Laboratory Tests 12/09/22 17:32 12/10/22 02:30 12/10/22 08:50 12/10/22 15:09 Patient resulted labs reviewed. 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
[2022-12-10] MEDS: predniSONE 20 MG TABLET PO SCH (07:50)
[2022-12-10] MEDS ORDERED: ALLOPURINOL 100 MG TABLET PO SCH (08:00)
[2022-12-10] MEDS: SENNOSIDES 8.6 MG TABLET PO SCH (08:34)
[2022-12-10] MEDS: DOCUSATE SODIUM 100 MG CAPSULE PO SCH (08:34)
[2022-12-10 09:05] LABS: BASOPHILS % (AUTO) 0 % (0-10); EOSINOPHILS % (AUTO) 0 % (0-10); HEMATOCRIT 25 % (40-54); HEMOGLOBIN 8.4 g/dL (13.3-17.7); LYMPHOCYTES # (AUTO) 0.8 10^3/uL (1.0-4.0); LYMPHOCYTES % (AUTO) 9 % (12-44); MEAN CORPUSCULAR HEMOGLOBIN 35 pg (25-34); MEAN CORPUSCULAR HGB CONC 34 g/dL (32-36); MEAN CORPUSCULAR VOLUME 104 fL (80-99); MONOCYTES # (AUTO) 0.4 10^3/uL (0.0-1.0); MONOCYTES % (AUTO) 5 % (0-12); NEUTROPHILS # (AUTO) 7.4 10^3/uL (1.8-7.8); NEUTROPHILS % (AUTO) 85 % (42-75); WHITE BLOOD COUNT 8.8 10^3/uL (4.3-11.0)
[2022-12-10 09:07] LABS: PLATELET COUNT 0 10^3/uL (130-400)
[2022-12-10 15:14] LABS: HEMOGLOBIN 8.4 g/dL (13.3-17.7); MEAN CORPUSCULAR VOLUME 101 fL (80-99)
[2022-12-10 15:15] LABS: HEMATOCRIT 24 % (40-54); MEAN CORPUSCULAR HEMOGLOBIN 35 pg (25-34); MEAN CORPUSCULAR HGB CONC 35 g/dL (32-36); WHITE BLOOD COUNT 10.3 10^3/uL (4.3-11.0)
[2022-12-10 15:20] LABS: PLATELET COUNT 0 10^3/uL (130-400)
[2022-12-10 15:28] VITALS: BP 158/82
[2022-12-10 15:46] VITALS: BP 156/70
[2022-12-10 15:53] VITALS: BP 145/64
[2022-12-10] MEDS ORDERED: NS IV 500 ML 500 ML IV SCH (18:00)
[2022-12-10 18:16] VITALS: BP 155/82
--- NOTE | 2022-12-10 18:26 | Discharge Summary ---
Discharge Summary Hospital Course Was the Problem List Reviewed?: Yes Problems/Dx: (1) Idiopathic thrombocytopenia purpura Status: Acute (2) Rectal bleeding Status: Acute Hospital Course Date of Admission: Dec 08, 2022 at 12:05 Admission Diagnosis : Family Physician/Provider: Autumn Benavides Date of Discharge: 12/10/22 Discharge Diagnosis: [ ] Hospital Course: Short course after he was admitted for severe ITP. Received platelet transfusion along with blood transfusion for continued rectal bleeding and general surgery had no surgical recs. Dr Goodson consulted and he recommended IVIG and multiple infusions were given without response. Patient continued to decline so Dr Goodson arranged for transfer to hematology and he was flown to in guarded condition. Labs and Pending Lab Test: Laboratory Tests 12/10/22 02:30: White Blood Count 8.7, Red Blood Count 2.42L, Hemoglobin 8.6L, Hematocrit 25L, Mean Corpuscular Volume 103H, Mean Corpuscular Hemoglobin 36H, Mean Corpuscular Hemoglobin Concent 35, Red Cell Distribution Width 13.9, Platelet Count 0*L, Mean Platelet Volume , Immature Granulocyte % (Auto) 1, Neutrophils (%) (Auto) 86H, Lymphocytes (%) (Auto) 7L, Monocytes (%) (Auto) 5, Eosinophils (%) (Auto) 0, Basophils (%) (Auto) 0, Neutrophils # (Auto) 7.5, Lymphocytes # (Auto) 0.6L, Monocytes # (Auto) 0.5, Eosinophils # (Auto) 0.0, Basophils # (Auto) 0.0, Immature Granulocyte # (Auto) 0.1, Percent Immature Platelet Fraction 0.0, Sodium Level 137, Potassium Level 4.7, Chloride Level 110H, Carbon Dioxide Level 19L, Anion Gap 8, Blood Urea Nitrogen 60H, Creatinine 1.42H, Estimat Glomerular Filtration Rate 49, BUN/Creatinine Ratio 42, Glucose Level 143H, Calcium Level 7.7L, Corrected Calcium 8.7, Magnesium Level 2.0, Total Bilirubin 0.6, Aspartate Amino Transf (AST/SGOT) 17, Alanine Aminotransferase (ALT/SGPT) 16, Alkaline Phosphatase 44, Total Protein 7.5, Albumin 2.8L 12/10/22 08:50: White Blood Count 8.8, Red Blood Count 2.37L, Hemoglobin 8.4L, Hematocrit 25L, Mean Corpuscular Volume 104H, Mean Corpuscular Hemoglobin 35H, Mean Corpuscular Hemoglobin Concent 34, Red Cell Distribution Width 14.4, Platelet Count 0*L, Mean Platelet Volume , Immature Granulocyte % (Auto) 2, Neutrophils (%) (Auto) 85H, Lymphocytes (%) (Auto) 9L, Monocytes (%) (Auto) 5, Eosinophils (%) (Auto) 0 , Basophils (%) (Auto) 0, Neutrophils # (Auto) 7.4, Lymphocytes # (Auto) 0.8L, Monocytes # (Auto) 0.4, Eosinophils # (Auto) 0.0, Basophils # (Auto) 0.0, Immature Granulocyte # (Auto) 0.1, Percent Immature Platelet Fraction 0.0 12/10/22 15:09: White Blood Count 10.3, Red Blood Count 2.41L, Hemoglobin 8.4L, Hematocrit 24L, Mean Corpuscular Volume 101H, Mean Corpuscular Hemoglobin 35H, Mean Corpuscular Hemoglobin Concent 35, Red Cell Distribution Width 14.1, Platelet Count 0*L, Mean Platelet Volume , Percent Immature Platelet Fraction 0.0 Home Meds Active Reported Leqvio (Inclisiran Sodium) 284 Mg/1.5 Ml Syringe 284 Mg SQ Nitroglycerin 0.4 Mg Tab.subl 0.4 Mg SL PRN Multiple Vitamin (Multivitamin with Minerals) 1 Each Tablet 1 Each PO DAILY Docusate Sodium 100 Mg Capsule 100 Mg PO DAILY Vitamin E (Vitamin E Acid Succinate) 268 Mg Tablet 268 Mg PO DAILY Aspirin EC (Aspirin) 81 Mg Tablet.dr 81 Mg PO DAILY Furosemide 20 Mg Tablet 20 Mg PO DAILY Lisinopril 20 Mg Tablet 10 Mg PO DAILY TAKES OF A 20MG TABLET TO EQUAL 10MG Niacin 250 Mg Tablet 250 Mg PO DAILY Pantoprazole Sodium 40 Mg Tablet.dr 40 Mg PO DAILY Fish Oil 1,000 mg Capsule ([place] 3 Polyunsat Fatty Acids) 1,000 Mg Cap 1,000 Mg PO DAILY Acetaminophen 500 Mg Tablet 1,000 Mg PO Q6H PRN Metoprolol Succinate 50 Mg Tab.er.24h 25 Mg PO DAILY TAKES OF A 50MG TABLET TO EQUAL 25MG DAILY Allopurinol 100 Mg Tablet 100 Mg PO DAILY Assessment/Pt Instructions [facility] transferred Discharge Planning: <30 minutes discharge planning Discharge Instructions Discharge Diet: No Restrictions Discharge Physical Examination Vital Signs Vital Signs Date Time Temp Pulse Resp B/P (MAP) Pulse Ox O2 Delivery O2 Flow Rate FiO2 12/10/22 18:16 35.6 98 22 155/82 91 Room Air 12/09/22 21:47 2.00 12/08/22 13:41 21 General Appearance: No Apparent Distress, WD/WN, Chronically ill Allergies: Coded Allergies: [id number] Reductase Inhibitor (Verified Allergy, Severe, ELEVATED LIVER ENZYMES, 11/25/18) ketorolac (Verified Allergy, Intermediate, 11/25/18) hallucinations amoxicillin (Verified Allergy, Mild, ITCHING/RASH/GI UPSET, 11/25/18) felodipine (Verified Allergy, Mild, HAND SWELLING, 11/25/18) Discharge Summary Date of Admission Dec 08, 2022 at 12:05 Date of Discharge Discharge Date: Dec 10, 2022 Admission Diagnosis Assessment: Severe thrombocytopenia due to ITP Rectal bleeding History of colon cancer Hypertension Hyperlipidemia COPD Plan: Monitor in ICU IVIG Platelet transfusion Hematology consultation High risk for bleeding Discharge Diagnosis Assessment: 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
[2022-12-10 18:33] VITALS: BP 172/112
[2022-12-10] MEDS ORDERED: BISACODYL 10 MG SUPPOSITORY PR PRN (19:00)
[2022-12-10] MEDS ORDERED: SCOPOLAMINE 1.5 MG PATCH TOP SCH (19:00)
[2022-12-10] MEDS ORDERED: ONDANSETRON INJECTION 4 MG/2 ML (SDV) IVP PRN (19:00)
[2022-12-10] MEDS ORDERED: LORazepam 1 MG TABLET SL PRN (19:00)
[2022-12-10] MEDS ORDERED: GLYCOPYRROLATE INJ 0.2 MG/ML 2 ML VIAL IV PRN (19:00)
[2022-12-10] MEDS ORDERED: ACETAMINOPHEN 650 MG SUPPOSITORY PR PRN (19:00)
[2022-12-10] MEDS ORDERED: SALIVA SUBSTITUTE 60 ML SPRAY MM PRN (19:00)
[2022-12-10] MEDS ORDERED: RT-Ipratropium/Albuterol NEB 3 ML VIAL INH PRN (19:00)
[2022-12-10] MEDS ORDERED: ATROPINE 1% OPHTHALMIC SOLN 2 ML SL PRN (19:00)
[2022-12-10] MEDS ORDERED: morphine INJ 4 MG/ML 1 ML (VIAL/SYRINGE) IV PRN (19:00)
[2022-12-10] MEDS ORDERED: LIDOCAINE UROJET 2% GEL 10 ML PKG TOP ONE (19:00)
[2022-12-10] MEDS ORDERED: ARTIFICAL TEARS Ophth solution 0.4 ML UNIT DOSE OU PRN (19:00)
[2022-12-10] MEDS ORDERED: PROMETHAZINE INJ 25 MG/ML VIAL IVP PRN (19:00)
== END 2022-12-10 19:26 | disposition expired | DRG 813 ==
LOC: EDUNIT# 08:23 → ER 08:26 → ICU 12:05
PROVIDERS: ADMIT Internal Medicine; ATTEND Internal Medicine
DX: D69.3 Immune thrombocytopenic purpura (principal); K62.5 Hemorrhage of anus and rectum; I10 Essential (primary) hypertension; J44.9 Chronic obstructive pulmonary disease, unspecified; Z51.5 Encounter for palliative care; Z66 Do not resuscitate; I48.91 Unspecified atrial fibrillation; E78.00 Pure hypercholesterolemia, unspecified; M19.90 Unspecified osteoarthritis, unspecified site; G89.29 Other chronic pain; M54.9 Dorsalgia, unspecified; I25.10 Atherosclerotic heart disease of native coronary artery without angina pectoris; D64.9 Anemia, unspecified; Z90.49 Acquired absence of other specified parts of digestive tract; Z85.828 Personal history of other malignant neoplasm of skin; Z85.46 Personal history of malignant neoplasm of prostate; Z85.038 Personal history of other malignant neoplasm of large intestine; Z92.21 Personal history of antineoplastic chemotherapy; Z79.82 Long term (current) use of aspirin; Z79.899 Other long term (current) drug therapy; Z87.891 Personal history of nicotine dependence; Z95.5 Presence of coronary angioplasty implant and graft; Z95.1 Presence of aortocoronary bypass graft; Z92.3 Personal history of irradiation
CPT/HCPCS: 36415; 80053; 83735; 85007; 85025; 85027; 85610; 85730; 86850; 86900; 86901; 86920; 94760